=== PATIENT | male | born 1940 | race Caucasian/White ===

== ENCOUNTER 2020-05-04 10:02 | Outpatient (REF) | payer OTHER, SELFPAY | END 2020-05-04 10:03 | disposition home or self-care (01) | LOC: HO.LAB 10:02 | PROVIDERS: PCP Pediatrics; Visit Provider Internal Medicine | DX: Z20.828 Contact with and (suspected) exposure to other viral communicable diseases (principal) | CPT/HCPCS: 87635 ==

== ENCOUNTER 2022-07-04 12:35 | Outpatient (REF) | payer OTHER, SELFPAY ==
[2022-07-04 14:55] LABS: Anion Gap 12 (12-20); Blood Urea Nitrogen 15 mg/dL (9-16); Calcium 9.1 mg/dL (8.4-10.2); Carbon Dioxide 26 mmol/L (22-29); Chloride 104 mmol/L (96-108); Estimated Glomerular Filt Rate > 60; Glucose Random 67 mg/dL (60-115); Potassium 4.7 mmol/L (3.3-5.1); Sodium 137 mmol/L (135-145); Thyroid Stimulating Hormone 2.87 uIU/mL (0.32-4.0)
[2022-07-04 15:12] LABS: Folate 7.2 ng/mL (> or = 4.0); Vitamin B12 396 pg/mL (200-900)
== END 2022-07-04 12:36 | disposition home or self-care (01) ==
LOC: HO.LAB 12:35
PROVIDERS: PCP Pediatrics; Visit Provider Psychiatry & Neurology Neurology
DX: G31.84 Mild cognitive impairment of uncertain or unknown etiology (principal)
CPT/HCPCS: 36415; 80048; 82607; 82746; 84443

== ENCOUNTER 2022-07-26 10:39 | Outpatient (REF) | payer OTHER, SELFPAY ==
--- NOTE | ~2022-07-26 | CT_ITS ---
CT HEAD WITHOUT IV CONTRAST INDICATION: Mild cognitive impairment. COMPARISON: Head CT 12/12/2016. TECHNIQUE: Multidetector CT acquisitions of the head was obtained without IV contrast. This CT examination was performed using dose optimization techniques as appropriate, variously including the following: *Automated exposure control *Adjustment of mA and/or kV according to patient size (this includes techniques or standardized protocols for targeted exams where dose is matched to indication/reason for exam; i.e. extremities or head) *Use of iterative reconstruction technique FINDINGS: Atherosclerotic calcification throughout the intracranial arterial vasculature. There is global cerebral volume loss and there is mild to moderate chronic microangiopathy. There is no intracranial hemorrhage, hydrocephalus, extra-axial surface collection, midline shift, or other herniation pattern. Vogel to white matter differentiation is diffusely maintained without evidence of an evolved acute territorial infarct. The basilar cisterns are preserved. No significant soft tissue abnormality. No acute osseous abnormality. The paranasal sinuses and the mastoid air cells are well aerated. CT/CT head/brain wo IV con IMPRESSION: No acute intracranial findings. There is global cerebral volume loss and there is mild to moderate chronic microangiopathy. Atherosclerotic calcification throughout the intracranial arterial vasculature.
== END 2022-07-26 10:40 | disposition home or self-care (01) ==
LOC: HO.CT 10:39
PROVIDERS: PCP Pediatrics; Visit Provider Psychiatry & Neurology Neurology
DX: G31.84 Mild cognitive impairment of uncertain or unknown etiology (principal)
CPT/HCPCS: 70450

== ENCOUNTER 2022-11-23 11:13 | Observation (INO) | payer OTHER, SELFPAY ==
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
[2022-11-23 11:17] VITALS: BP 135/75; PULSE 60
[2022-11-23 11:20] VITALS: BP 139/63; PULSE 61; RESP 16; O2SAT 97; BMI 25.5
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
[2022-11-23 12:05] LABS: Glucose, Whole Blood 113 mg/dL (60-115)
[2022-11-23] MEDS: Acetaminophen 325 MG TABLET 650 MG PO (12:10)
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
[2022-11-23 13:13] LABS: Glucose, Whole Blood 49 mg/dL (60-115)
--- NOTE | 2022-11-23 14:00 | PC.NURSE ---
pt repeat POC 49mg/dl pt given orange juice and russell crackers
--- NOTE | 2022-11-23 14:30 | ECG_ITS ---
Test Reason : cp Blood Pressure : / mmHG Vent. Rate : 055 BPM Atrial Rate : 055 BPM P-R Int : 160 ms QRS Dur : 080 ms QT Int : 428 ms P-R-T Axes : 034 -21 009 degrees QTc Int : 409 ms Sinus bradycardia Otherwise normal ECG When compared with ECG of 13-DEC-2016 07:33, No significant change was found Referred By: Chang Buchanan Electronically Signed By:DONAL DURHAM
[2022-11-23 15:03] LABS: Glucose, Whole Blood 61 mg/dL (60-115)
[2022-11-23 15:35] LABS: PLT CLUMP 1; Red Cell Distribution Width 12.5 % (11.0-16.0); SCAN SMEAR FLAG 1
[2022-11-23 15:37] LABS: Basophils Percent Auto 0.3 % (0-2); Eosinophils Percent Auto 0.4 % (0-4); Hemoglobin 14.1 g/dl (14.0-18.0); Imm Gran Abs Auto 0.04 X10*3/uL (0.00-0.03); Imm Gran Pct Auto 0.4 % (0.0-0.4); Lymphocytes Absolute Auto 1.2 X10*3/uL (1.2-4.9); Lymphocytes Percent Auto 13.3 % (20-40); MANUAL DIFF FLAG SCAN; Mean Corpuscular HGB Conc 34.4 g/dl (31.0-36.0); Mean Corpuscular Hemoglobin 31.3 pg (27.0-33.0); Mean Corpuscular Volume 90.9 fL (80.0-98.0); Mean Platelet Volume 10.8 fL (9.4-12.4); Monocytes Absolute Auto 0.6 X10*3/uL (0.1-1.2); Monocytes Percent Auto 6.2 % (2-11); Neutrophils Absolute Auto 7.1 x10*3/uL (2.0-8.3); Neutrophils Percent Auto 79.4 % (45-73); Red Blood Count 4.51 X10*6/uL (4.60-5.80)
--- NOTE | 2022-11-23 15:42 | PHA.MEDREC ---
Pharmacy Consult ? Medication Reconciliation Pharmacy has completed the medication reconciliation. spoke with pt and family member. Pt no longer takes b12 because it greatly affected his blood sugars. he said he also doesnt take novolog, only lantus 55 units bid. In regards to the carvedilol, at first the patient said yes to bid but then after discussing with the family member, they said he only takes carvedilol once a day at night.
[2022-11-23 15:53] LABS: Alanine Aminotransferase 27 U/L (0-40); Alkaline Phosphatase 73 U/L (39-117); Anion Gap 11 (12-20); Aspartate Amino Transferase 52 U/L (5-37); Bilirubin Total 1.3 mg/dL (0.0-1.0); Blood Urea Nitrogen 10 mg/dL (9-16); Calcium 9.2 mg/dL (8.4-10.2); Carbon Dioxide 26 mmol/L (22-29); Chloride 109 mmol/L (96-108); Creatinine Clr Calc Pharmacy 70.9; Estimated Glomerular Filt Rate > 60; Glucose Random 76 mg/dL (60-115); Potassium 4.3 mmol/L (3.3-5.1); Sodium 142 mmol/L (135-145); Total Protein 6.8 g/dL (6.5-8.0)
[2022-11-23 16:01] LABS: Platelet Count 86 X10*3/uL (160-400); SLIDE REVIEW VERIFIED
[2022-11-23 16:33] LABS: Glucose, Whole Blood 66 mg/dL (60-115)
--- NOTE | 2022-11-23 16:34 | PC.NURSE ---
pt POC currently 66 pt has consumed orange juice and crackers 20G IV placed in right AC labs processing. call monteiro within reach, dtr at [email or web address]
[2022-11-23 17:44] LABS: Glucose, Whole Blood 112 mg/dL (60-115)
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
--- NOTE | 2022-11-23 18:17 | PC.NURSE ---
ATTEMPTED TO CALL [facility] FOR REPORT, NO ANSWER.
[2022-11-23 18:53] VITALS: BP 150/61; PULSE 63; O2SAT 97
[2022-11-23] MEDS: Lidocaine 4 % Patch ADH..PATCH 1 PATCH TRANSDERMA (18:54)
--- NOTE | 2022-11-23 18:58 | PC.NURSE ---
report given to [facility]
[2022-11-23 19:34] VITALS: BP 168/75; PULSE 61; RESP 20; TEMP 37.2; O2SAT 97
[2022-11-23 19:55] LABS: Glucose, Whole Blood 71 mg/dL (60-115)
[2022-11-23] MEDS: carvediloL 12.5 MG TABLET PO (20:54)
[2022-11-23] MEDS: Tamsulosin HCL 0.4 MG CAPSULE PO (20:54)
[2022-11-23] MEDS: 0.9 % Sodium Chloride Flush 3 ML SYRINGE IVFLUSH (20:55)
[2022-11-23 22:36] LABS: Glucose, Whole Blood 73 mg/dL (60-115)
[2022-11-23 23:20] VITALS: BP 142/64; PULSE 64; RESP 18; TEMP 36.7; O2SAT 96
[2022-11-24] MEDS: Acetaminophen 325 MG TABLET 650 MG PO (03:03)
[2022-11-24 03:13] VITALS: BP 112/58; PULSE 60; RESP 18; TEMP 37.1; O2SAT 96
[2022-11-24 07:29] LABS: Glucose, Whole Blood 81 mg/dL (60-115)
[2022-11-24 07:50] VITALS: BP 121/56; PULSE 57; RESP 20; TEMP 37.2; O2SAT 96
[2022-11-24] MEDS: Multivitamin TABLET 1 TAB PO (08:41)
[2022-11-24] MEDS: Aspirin Enteric Coated 81 MG TABLET.DR PO (08:41)
[2022-11-24] MEDS: Atorvastatin Calcium 80 MG TABLET PO (08:41)
[2022-11-24] MEDS: lisinopriL 10 MG TABLET PO (08:41)
[2022-11-24] MEDS: 0.9 % Sodium Chloride Flush 3 ML SYRINGE IVFLUSH (08:41)
[2022-11-24] MEDS: Lidocaine 4 % Patch ADH..PATCH 1 PATCH TRANSDERMA (08:42)
[2022-11-24] MEDS: Fluticasone Propionate Nasal 16 GM SPRAY 1 SPRAY NOSTRIL-B (08:44)
[2022-11-24] MEDS: Loratadine 10 MG TABLET PO (08:44)
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
--- NOTE | 2022-11-24 09:05 | MHC.CM.PN ---
11/24/22 08:57 - Case Mgmt Progress [id number] : 07/14/1968 Patient Age: 54 CM met with Patient at bedside with the assist of a Digital Operations Analyst and addressed [facility] with him (original was given to Patient and a copy has been placed on the chart). Patient lives alone in an apartment and he uses a cane to assist with mobility. Home self care is the goal and CM has initiated and will follow for dc planning. HCP/is on file(Daughter is HCP). Patient is Kulwinder dutton'd and the PCP is Dr. Beatriz Ernst. Initialized on 11/24/22 08:57 - END OF NOTE
--- NOTE | 2022-11-24 10:28 | MHC.CM.PN ---
Per ROUNDS discussion, Patient will be medically cleared for dc to home today. JAMESON met with Patient and his Daughter/HCP at bedside. Patient and Daughter are interested in a TRIM MACHINE OPERATOR. JAMESON spoke with [facility] JAMESON/Cayla @ [phone] who explained that she will contact the Rn Invasive/Radha and ask her to call the Daughter to work toward getting Patient a TRIM MACHINE OPERATOR. Cayla also approved [facility] for an RN and that referral has been made and [facility] is aware of today's dc. JAMESON relayed this information to the MD. Per Daughter's request, JAMESON has also requested that the Dietitian meet with them prior to dc.
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
--- NOTE | 2022-11-24 10:45 | W.MHC.F2F ---
Service Date Service Date: 11/24/22 Encounter Date of encounter: 11/24/22 Reasons for Services Signs and symptoms assessed: weakness, wrist pain Reason for assisted: diabetic teaching, medication management and medication treatment Homebound: Leaving the home is medically contraindicated at this time without the asist of a device and/or another person due th the listed conditions above and below. Reason homebound: unsteady gait / fall risk and unable to drive Certification: Based on the above findings, I certify that this patient is confined to the home and needs intermittent assisted care, physical therapy and/or speech therapy, or continues to need occupational therapy. The patient is under my care, and I have initiated the establishment of the plan of care. The patient will be followed by a physician who will periodically review the plan of care. Time Spent With Patient Time: Total time managing care of this patient today ____ minutes.
--- NOTE | 2022-11-24 10:46 | MHC.CM.PN ---
[facility] is unable to accept Patient. CM spoke with [facility] CM/Cayla again and additional [facility] referrals have been made. CM will follow.
[2022-11-24 11:06] LABS: Glucose, Whole Blood 128 mg/dL (60-115)
--- NOTE | 2022-11-24 11:12 | MHC.CM.PN ---
[facility] has accepted Patient and they are aware of today's dc.
--- NOTE | 2022-11-24 11:22 | MHC.CLN ---
RE: CONSULT SPOKE WITH PT'S DAUGHTER REGARDING DIABETIC DIET. DAUGHTER REPORTED PT NONCOMPLIANT WITH DM DIET AT HOME. REVIEWED FOODS HIGH IN CARBS AND RECOMMENDING SLOWLY SUBSTITUTING HIGH CHO, HIGH SUGAR FOODS WITH LOWER CARBS, HIGH FIBER OPTIONS. GAVE HANDOUTS IN BOTH LITHUANIAN AND CROATIAN. RECOMMEND REFERRAL TO OUT PT RD FOR FUTURE FOLLOW UP AND DIET RE-ENFORCEMENT SEE ALSO TEACHING RECORD
== END 2022-11-24 12:04 | disposition home health service (06) ==
LOC: HO.ED 17:02 → HO.EDOVER 17:52 → HO.IMC 17:55
PROVIDERS: Registered Nurse Emergency; Admitting Provider Physician Assistant; Emergency Provider Emergency Medicine Emergency Medical Services; PCP Pediatrics; Visit Provider Internal Medicine
DX: R42 Dizziness and giddiness (principal); E11.649 Type 2 diabetes mellitus with hypoglycemia without coma; T38.3X1A Poisoning by insulin and oral hypoglycemic [antidiabetic] drugs, accidental (unintentional), initial encounter; S52.592A Other fractures of lower end of left radius, initial encounter for closed fracture; V43.52XA Car driver injured in collision with other type car in traffic accident, initial encounter; W22.11XA Striking against or struck by driver side automobile airbag, initial encounter; Y93.9 Activity, unspecified; Y92.9 Unspecified place or not applicable; R07.9 Chest pain, unspecified; M25.561 Pain in right knee; I10 Essential (primary) hypertension; E78.5 Hyperlipidemia, unspecified; R41.3 Other amnesia; N40.0 Benign prostatic hyperplasia without lower urinary tract symptoms; Z79.4 Long term (current) use of insulin
CPT/HCPCS: 36415; 70450; 71046; 72125; 73100; 73120; 73562; 80053; 82947; 85025; 93005; 99222; 99285

== ENCOUNTER 2022-11-28 19:11 | Emergency (ER) | payer OTHER, SELFPAY ==
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
[2022-11-28 19:14] VITALS: BP 153/68; BP 162/82; PULSE 52; PULSE 66; RESP 17; TEMP 36.6; O2SAT 96; O2SAT 97; BMI 23.1
[2022-11-28 20:09] VITALS: BP 140/88; PULSE 56; RESP 15; O2SAT 97
[2022-11-28 21:50] VITALS: BP 136/90; PULSE 60; RESP 15; O2SAT 99
[2022-11-28] MEDS: iohexoL 350 MG/ML 100 ML INFUS..BTL IV (22:17)
[2022-11-28 23:28] VITALS: BP 151/56; PULSE 57; RESP 16; TEMP 36.7; O2SAT 98
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
--- NOTE | 2022-11-28 23:34 | MHC.EDTECH ---
THIS PCT ASSUMED CARE OF PATIENT AT 2300 ,PATIENT VITALS SIGN TAKEN ,EXTRA BLANKETS REMOVE FROM UNDER PATIENT ,PATIENT RESTING QUIETLY IN BED ,WARM BLANKET GIVEN .
[2022-11-28] MEDS: traMADoL HCL 50 MG TABLET PO (23:39)
== END 2022-11-29 00:02 | disposition home or self-care (01) ==
PROVIDERS: Emergency Provider Emergency Medicine
DX: S40.012A Contusion of left shoulder, initial encounter (principal); S49.92XA Unspecified injury of left shoulder and upper arm, initial encounter; M79.10 Myalgia, unspecified site; R10.2 Pelvic and perineal pain; M54.6 Pain in thoracic spine; V89.2XXA Person injured in unspecified motor-vehicle accident, traffic, initial encounter; Y93.9 Activity, unspecified; Y92.410 Unspecified street and highway as the place of occurrence of the external cause; Y99.9 Unspecified external cause status; Z79.899 Other long term (current) drug therapy
CPT/HCPCS: 71260; 74177; 99284; Q9967

== ENCOUNTER 2022-12-22 09:37 | Outpatient (REF) | payer OTHER, SELFPAY ==
--- NOTE | ~2022-12-22 | XR_ITS ---
EXAMINATION: XR WRIST, LEFT CLINICAL INFORMATION: Pain COMPARISON: Wrist radiographs 11/23/2022 TECHNIQUE: PA, lateral, and oblique views of the left wrist. FINDINGS: Atherosclerotic vascular calcification. Healing fracture at the distal radial metaphysis with increasing sclerosis of the fracture margins, in unchanged alignment. Joint spaces are maintained. Decreased soft tissue swelling. XR/XR wrist LT min 3V IMPRESSION: Healing fracture at the distal radial metaphysis with increasing sclerosis of the fracture margins, in unchanged alignment.
== END 2022-12-22 09:38 | disposition home or self-care (01) ==
LOC: HO.HOSX 09:37
PROVIDERS: Visit Provider Physician Assistant
DX: S52.502D Unspecified fracture of the lower end of left radius, subsequent encounter for closed fracture with routine healing (principal); X58.XXXD Exposure to other specified factors, subsequent encounter
CPT/HCPCS: 73110

== ENCOUNTER 2023-01-30 11:45 | Outpatient (REF) | payer OTHER, SELFPAY | END 2023-01-30 11:46 | disposition home or self-care (01) | LOC: HO.HOSX 11:45 | PROVIDERS: Visit Provider Physician Assistant | DX: Z13.89 Encounter for screening for other disorder (principal) ==

== ENCOUNTER 2023-03-14 07:26 | Outpatient (REF) | payer OTHER, SELFPAY ==
--- NOTE | ~2023-03-14 | XR_ITS ---
EXAMINATION: XR WRIST, LEFT CLINICAL INFORMATION: Pain COMPARISON: Previous x-ray most recent December TECHNIQUE: PA, lateral, and oblique views of the left wrist. FINDINGS: The bones are osteopenic. There is continued healing of the transverse nondisplaced fracture of the distal radius with more obscured fracture line. Mild joint space narrowing at the MCP joints. Carpal bones are normal. Soft tissue arterial calcification. XR/XR wrist LT min 3V IMPRESSION: Healing distal radius fracture
== END 2023-03-14 07:27 | disposition home or self-care (01) ==
LOC: HO.HOSX 07:26
PROVIDERS: Visit Provider Physician Assistant
DX: S52.502A Unspecified fracture of the lower end of left radius, initial encounter for closed fracture (principal); M18.12 Unilateral primary osteoarthritis of first carpometacarpal joint, left hand
CPT/HCPCS: 73110

== ENCOUNTER 2023-03-14 12:40 | Outpatient (AMB) | payer OTHER, SELFPAY ==
[2023-03-14 12:54] VITALS: BMI 23.0
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
== END 2023-03-14 13:18 | disposition home or self-care (01) ==
PROVIDERS: PCP Pediatrics; Visit Provider Physician Assistant
DX: S52.502D Unspecified fracture of the lower end of left radius, subsequent encounter for closed fracture with routine healing (principal); M18.12 Unilateral primary osteoarthritis of first carpometacarpal joint, left hand
CPT/HCPCS: 99213

== ENCOUNTER 2023-08-15 11:37 | Outpatient (REF) | payer OTHER, SELFPAY ==
[2023-08-15 14:58] LABS: MANUAL DIFF FLAG NO
[2023-08-15 15:04] LABS: Basophils Percent Auto 0.6 % (0-2); Eosinophils Percent Auto 1.1 % (0-4); Hematocrit 39.3 % (42.0-52.0); Hemoglobin 13.2 g/dl (14.0-18.0); Imm Gran Abs Auto 0.01 X10*3/uL (0.00-0.03); Imm Gran Pct Auto 0.3 % (0.0-0.4); Lymphocytes Absolute Auto 0.9 X10*3/uL (1.2-4.9); Lymphocytes Percent Auto 26.2 % (20-40); Mean Corpuscular HGB Conc 33.6 g/dl (31.0-36.0); Mean Corpuscular Hemoglobin 31.1 pg (27.0-33.0); Mean Corpuscular Volume 92.7 fL (80.0-98.0); Mean Platelet Volume 11.3 fL (9.4-12.4); Monocytes Absolute Auto 0.2 X10*3/uL (0.1-1.2); Monocytes Percent Auto 6.7 % (2-11); Neutrophils Absolute Auto 2.3 x10*3/uL (2.0-8.3); Neutrophils Percent Auto 65.1 % (45-73); Red Blood Count 4.24 X10*6/uL (4.60-5.80); Red Cell Distribution Width 12.9 % (11.0-16.0); White Blood Count 3.6 X10*3/uL (4.8-10.8)
[2023-08-15 15:24] LABS: Platelet Count 71 X10*3/uL (160-400)
[2023-08-15 15:34] LABS: Alanine Aminotransferase 19 U/L (0-40); Albumin Level 3.8 g/dL (3.5-5.0); Alkaline Phosphatase 71 U/L (39-117); Anion Gap 13 (12-20); Aspartate Amino Transferase 32 U/L (5-37); Bilirubin Direct 0.4 mg/dL (0.0-0.5); Blood Urea Nitrogen 14 mg/dL (9-16); Calcium 9.2 mg/dL (8.4-10.2); Carbon Dioxide 25 mmol/L (22-29); Chloride 104 mmol/L (96-108); Estimated Glomerular Filt Rate > 60; Glucose Random 203 mg/dL (60-115); Potassium 3.9 mmol/L (3.3-5.1); Sodium 138 mmol/L (135-145); Total Protein 6.6 g/dL (6.5-8.0)
[2023-08-15 15:42] LABS: TSH reflex Free T4 1.99 uIU/mL (0.32-4.0)
[2023-08-15 15:45] LABS: Folate 11.3 ng/mL (> or = 4.0); Vitamin B12 614 pg/mL (200-900)
[2023-08-15 15:50] LABS: Creatinine Urine 48.97 mg/dL; Microalbumin Urine < 5.0 mg/L
[2023-08-15 16:51] LABS: Appearance Urine Clear; Color Urine Yellow; Glucose Urine UA >=1000 mg/dL (Negative)
[2023-08-15 16:52] LABS: Leukocyte Esterase Urine Negative (Negative); Nitrite Urine Negative (Negative); Specific Gravity - Urine <= 1.005 (1.005-1.025); UMIC TRIGGER UACC YES; Urine Blood Trace (Negative); Urine Ketones Negative (Negative); Urine Protein Negative (Neg-Trace)
[2023-08-15 16:56] LABS: Bacteria Urine None Seen (None Seen); Hyaline Casts Urine 0-2 /LPF (0-2); RBC Urine 0-2 /HPF (0-2); Squamous Epithelial Cell Urine 0-2 /HPF (0-2); WBC Urine 0-5 /HPF (0-5)
== END 2023-08-15 11:38 | disposition home or self-care (01) ==
LOC: HO.CHCLDS 11:37
PROVIDERS: Visit Provider Pediatrics
DX: C83.30 Diffuse large B-cell lymphoma, unspecified site (principal); E11.9 Type 2 diabetes mellitus without complications; R41.3 Other amnesia; H90.6 Mixed conductive and sensorineural hearing loss, bilateral
CPT/HCPCS: 36415; 80048; 80076; 81001; 81003; 82043; 82570; 82607; 82746; 84134; 84443; 85025

== ENCOUNTER 2023-10-04 12:50 | Outpatient (REF) | payer OTHER, SELFPAY ==
--- NOTE | ~2023-10-04 | CT_ITS ---
EXAMINATION: CT HEAD WITHOUT CONTRAST CLINICAL INFORMATION: 83-year-old with memory impairment. Evaluate for possible remote CVA. COMPARISON: 07/26/2022 CT brain. TECHNIQUE: Contiguous axial imaging was performed from the skull base to vertex without intravenous administration of contrast. This CT examination was performed using dose optimization techniques as appropriate, variously including the following: *Automated exposure control *Adjustment of mA and/or kV according to patient size (this includes techniques or standardized protocols for targeted exams where dose is matched to indication/reason for exam; i.e. extremities or head) *Use of iterative reconstruction technique DLP: 711 mGy-cm FINDINGS: Brain Volume: Redemonstrated is [id number] generalized diffuse brain parenchymal volume loss similar in appearance to the previous study. Structural: No malformations. Brain and Meninges: Faint patchy zones of hypodensity are seen in the white matter of both cerebral hemispheres similar in appearance to the previous exam likely reflecting mild chronic ischemic microangiopathy in a patient of this age. Vogel-white matter interface is intact. There is no acute territorial infarct, hemorrhage, extra-axial fluid collection, space-occupying process or mass effect. Ganglionic structures appear grossly unchanged. There may be a tiny age-indeterminate lacunar infarct in the left thalamus on the current study, but this is difficult to ascertain with a high degree of certainty. Otherwise, midline structures appear grossly unremarkable. Bilateral carotid siphon mural calcifications and mild degrees of atheromatous calcified plaque at both vertebral arteries unchanged. Ventricles and Subarachnoid Spaces: The ventricular system and subarachnoid spaces are approximately proportional to the degree of parenchymal volume loss, without hydrocephalus. Orbital Structures: Bilateral lens replacements are noted. Otherwise, grossly unremarkable within the limitations of the study. Osseous Structures, Sinuses/Mastoids, Extracranial Soft Tissues: Bony structures are intact. The visualized airspaces are unopacified. The visualized extra cranial soft tissue structures are unremarkable. CT/CT head/brain wo IV con IMPRESSION: 1. No acute intracranial process. No evidence for acute territorial infarct, hemorrhage, extra-axial fluid collection, space-occupying process, mass effect or hydrocephalus. 2. Mild chronic ischemic microangiopathy in the white matter of both cerebral hemispheres similar in appearance to the previous study. 3. Possible tiny age-indeterminate lacunar infarct in the left thalamus on the current study, but this is difficult to ascertain with a high degree of certainty. 4. Generalized diffuse nonspecific brain parenchymal volume loss similar to the previous study.
== END 2023-10-04 12:51 | disposition home or self-care (01) ==
LOC: HO.CT 12:50
PROVIDERS: PCP Pediatrics; Visit Provider Pediatrics
DX: R41.3 Other amnesia (principal)
CPT/HCPCS: 70450

== ENCOUNTER 2024-03-27 10:22 | Outpatient (REF) | payer OTHER, SELFPAY ==
[2024-03-27 13:47] LABS: MANUAL DIFF FLAG NO
[2024-03-27 14:04] LABS: Basophils Percent Auto 0.3 % (0-2); Eosinophils Percent Auto 0.3 % (0-4); Hematocrit 41.1 % (42.0-52.0); Hemoglobin 14.1 g/dl (14.0-18.0); Imm Gran Abs Auto 0.01 X10*3/uL (0.00-0.03); Imm Gran Pct Auto 0.3 % (0.0-0.4); Lymphocytes Absolute Auto 0.6 X10*3/uL (1.2-4.9); Lymphocytes Percent Auto 17.6 % (20-40); Mean Corpuscular HGB Conc 34.3 g/dl (31.0-36.0); Mean Corpuscular Hemoglobin 31.6 pg (27.0-33.0); Mean Corpuscular Volume 92.2 fL (80.0-98.0); Mean Platelet Volume 12.1 fL (9.4-12.4); Monocytes Absolute Auto 0.2 X10*3/uL (0.1-1.2); Monocytes Percent Auto 6.4 % (2-11); Neutrophils Absolute Auto 2.7 x10*3/uL (2.0-8.3); Neutrophils Percent Auto 75.1 % (45-73); Red Blood Count 4.46 X10*6/uL (4.60-5.80); White Blood Count 3.6 X10*3/uL (4.8-10.8)
[2024-03-27 14:05] LABS: Platelet Count 85 X10*3/uL (160-400)
[2024-03-27 14:24] LABS: Estimated Average Glucose 192 mg/dL; Hemoglobin A1c % 8.3 % (<6.0)
[2024-03-27 14:30] LABS: Alanine Aminotransferase 25 U/L (0-40); Albumin Level 3.9 g/dL (3.5-5.0); Alkaline Phosphatase 104 U/L (39-117); Anion Gap 12 (12-20); Aspartate Amino Transferase 31 U/L (5-37); Bilirubin Direct 0.3 mg/dL (0.0-0.5); Bilirubin Total 0.8 mg/dL (0.0-1.0); Blood Urea Nitrogen 17 mg/dL (9-16); Calcium 9.5 mg/dL (8.4-10.2); Carbon Dioxide 26 mmol/L (22-29); Chloride 103 mmol/L (96-108); Estimated Glomerular Filt Rate > 60; Glucose Random 314 mg/dL (60-115); Potassium 4.1 mmol/L (3.3-5.1); Sodium 137 mmol/L (135-145); Total Protein 6.7 g/dL (6.5-8.0)
[2024-03-27 14:39] LABS: TSH reflex Free T4 1.64 uIU/mL (0.32-4.0)
[2024-03-27 14:55] LABS: Folate 14.9 ng/mL (> or = 4.0); Vitamin B12 543 pg/mL (200-900)
== END 2024-03-27 10:23 | disposition home or self-care (01) ==
LOC: HO.CHCLDS 10:22
PROVIDERS: Visit Provider Pediatrics
DX: I10 Essential (primary) hypertension (principal); E11.69 Type 2 diabetes mellitus with other specified complication; Z79.4 Long term (current) use of insulin
CPT/HCPCS: 36415; 80048; 80076; 82607; 82746; 83036; 84134; 84443; 85025

== ENCOUNTER 2024-07-25 15:49 | Outpatient (REF) | payer OTHER, SELFPAY ==
--- NOTE | ~2024-07-25 | CT_ITS ---
EXAMINATION: CT ABDOMEN WITHOUT AND WITH CONTRAST CLINICAL INFORMATION: Liver mass. COMPARISON: CT dated November 28, 2022. TECHNIQUE: Contiguous axial thin section helical images of the abdomen were performed before and after the administration of 85 mL of Omnipaque 350 intravenous contrast. No reported immediate complication. The data set was reformatted in the coronal and sagittal planes and reviewed on an independent workstation. This CT examination was performed using dose optimization techniques as appropriate, variously including the following: *Automated exposure control *Adjustment of mA and/or kV according to patient size (this includes techniques or standardized protocols for targeted exams where dose is matched to indication/reason for exam; i.e. extremities or head) *Use of iterative reconstruction technique. DLP: 798 mGy centimeter. FINDINGS: LUNG BASES: No acute airspace disease or gross pulmonary nodules in the included lungs. Subcentimeter subpleural based groundglass nodules right lung base. LIVER, GALLBLADDER, AND BILIARY TREE: Liver measures 11 cm in maximum length. Nodular surface. Enlarged caudate lobe. There is an irregularly-shaped, 9 cm, arterial and portal venous heterogeneously enhancing mass centered in the entire left hepatic lobe. There is an irregularly-shaped, 4 cm, partially calcified, arterial and portal venous heterogeneously enhancing mass centered in the right hepatic lobe. There are segmental narrowing of the left portal vein with diminished newly absent IV contrast enhancement. The main portal vein and main right portal vein are patent. The hepatic veins and intrahepatic portion of the IVC are patent. There is a focal calcification in the gallbladder without distention. No gallbladder wall thickening. There is a edema pattern of the gallbladder wall. No intrahepatic or extrahepatic biliary ductal dilatation. PANCREAS: Volume loss. No focal mass. No peripancreatic fluid collection. No main pancreatic ductal dilatation. Decreased enhancement of the head and uncinate process. SPLEEN: 13 cm. No focal mass. ADRENAL GLANDS AND KIDNEYS: No nodular lesions in the adrenal glands. There are multifocal, different sizes, round and ovoid shaped well-defined less than 2 cm fluid density lesions throughout the renal parenchyma more numerous on the left kidney. The renal parenchyma demonstrates normal enhancement pattern. No hydronephrosis in either kidney. BOWEL LOOPS: Abundant stool within the large intestine. No intestinal obstruction pattern. No gross ascites. No pneumoperitoneum. Edema pattern in the omentum and mesentery. LYMPH NODES: No gross lymphadenopathy. VASCULAR: Mixed plaques throughout the abdominal aorta wall and the iliac arteries without aneurysm or dissection. Calcified plaques at the origin of the celiac trunk and main renal arteries. Calcified plaques in the aortic valve. Questionable prominent vessels at the paraesophageal gastroesophageal junction. BONES: Multilevel thoracolumbar spondylosis. No acute fracture or listhesis. Multilevel Schmorl nodes, more conspicuous at L3. CT/CT abdomen wo/w IV con IMPRESSION: Consider to hepatocellular carcinoma masses in the left and right hepatic lobe in a patient with cirrhosis. Cholelithiasis. Bilateral renal cysts. Atherosclerosis disease. Calcified plaques, aortic valve. No ascites. Fleischner guidelines were followed. Electronically signed by: Hayden Morales MD 07/26/2024 08:11 AM MICHELET
[2024-07-25] MEDS: iohexoL 350 MG/ML 100 ML INFUS..BTL 85 ML IV (16:49)
[2024-07-26 14:15] LABS: Creatinine POC 0.8 mg/dL (0.5-1.4); GFR POC > 60
== END 2024-07-25 15:50 | disposition home or self-care (01) ==
LOC: HO.CT 15:49
PROVIDERS: PCP Pediatrics; Visit Provider Student in an Organized Health Care Education/Training Program
DX: C22.0 Liver cell carcinoma (principal)
CPT/HCPCS: 74170; 82565; Q9967

== ENCOUNTER → 2024-07-25 15:51 | Outpatient (BNV) | payer OTHER, SELFPAY | PROVIDERS: PCP Pediatrics; Visit Provider Radiology Diagnostic Radiology | DX: K80.00 Calculus of gallbladder with acute cholecystitis without obstruction (principal) | CPT/HCPCS: 74170 ==

== ENCOUNTER 2024-08-13 20:39 | Observation (INO) | payer OTHER, SELFPAY ==
--- NOTE | 2024-08-13 | ECG_ITS ---
Test Reason : BRADYCARDIA Blood Pressure : */* mmHG Vent. Rate : 66 BPM Atrial Rate : 66 BPM P-R Int : 154 ms QRS Dur : 70 ms QT Int : 410 ms P-R-T Axes : 14 -25 -18 degrees QTcB Int : 429 ms Sinus rhythm with frequent Premature ventricular complexes Nonspecific ST abnormality Abnormal ECG When compared with ECG of 23-Nov-2022 11:27, Premature ventricular complexes are now Present T wave amplitude has decreased in Lateral leads Referred By: Generic ED Physician Electronically Signed By: DONAL DURHAM
[2024-08-13 20:53] VITALS: BP 120/56; BP 128/68; PULSE 72; RESP 17; TEMP 35.6; O2SAT 96; O2SAT 98; BMI 18.1
[2024-08-13 20:58] VITALS: BP 110/53; BP 113/54; PULSE 67; PULSE 71
[2024-08-13 21:00] VITALS: BP 109/54; PULSE 76
[2024-08-13 21:10] LABS: Glucose, Whole Blood 257 mg/dL (60-115)
[2024-08-13 21:12] LABS: Eosinophils Absolute Auto 0.1 X10*3/uL (0.0-0.4); Monocytes Absolute Auto 0.4 X10*3/uL (0.1-1.2); PLT CLUMP 1; SCAN SMEAR FLAG 1
[2024-08-13 21:14] LABS: Basophils Percent Auto 0.2 % (0-2); Eosinophils Percent Auto 1.2 % (0-4); Hematocrit 36.5 % (42.0-52.0); Hemoglobin 12.4 g/dl (14.0-18.0); Imm Gran Abs Auto 0.01 X10*3/uL (0.00-0.03); Imm Gran Pct Auto 0.2 % (0.0-0.4); Lymphocytes Absolute Auto 0.9 X10*3/uL (1.2-4.9); Lymphocytes Percent Auto 21.6 % (20-40); Mean Corpuscular Hemoglobin 31.1 pg (27.0-33.0); Mean Corpuscular Volume 91.5 fL (80.0-98.0); Mean Platelet Volume 10.3 fL (9.4-12.4); Monocytes Percent Auto 9.2 % (2-11); Neutrophils Absolute Auto 2.9 x10*3/uL (2.0-8.3); Neutrophils Percent Auto 67.6 % (45-73); Red Blood Count 3.99 X10*6/uL (4.60-5.80); Red Cell Distribution Width 13.5 % (11.0-16.0)
[2024-08-13 21:22] LABS: Platelet Count 64 X10*3/uL (160-400); White Blood Count 4.3 X10*3/uL (4.8-10.8)
[2024-08-13 21:23] LABS: MANUAL DIFF FLAG NO
--- NOTE | 2024-08-13 21:23 | ED.GENADULT ---
HPI - General Adult General Chief complaint: General Medical Stated complaint: orthostatic hypotension, cheng per nurse Time Seen by Provider: 08/13/24 21:23 Source: patient Mode of arrival: ambulatory Limitations: no limitations History of Present Illness ED Provider: HPI narrative: Patient's history of diabetes ,hypertension, BPH, history of lymphoma noticed to be bradycardic by visiting nurse heart rate in the range of 40s with blood pressure stable in 120s but dropped to 88/48 on standing with heart rate dropped between 30s-50s which was measured from the pulse ox when EMS reached heart rate was in 70s with multifocal PVCs patient is asymptomatic no dizziness no syncope no chest pain no shortness a breath patient is on carvedilol patient with dementia denies any complaints [employer] also did not notice any change in behavior or dizziness Related Data Home Medications ?Medication ?Instructions ?Recorded ?Confirmed aspirin 81 mg tablet,delayed 81 mg PO DAILY 11/23/22 11/28/22 release lisinopril 10 mg tablet 30 mg PO QAM 11/23/22 11/28/22 loratadine 10 mg tablet 10 mg PO DAILY 11/23/22 11/28/22 multivitamin (One Daily 1 tab PO DAILY 11/23/22 11/28/22 Multivitamin tablet) Previous Rx's ?Medication ?Instructions ?Recorded tramadol 50 mg tablet 50 mg PO BID PRN pain #7 tabs 11/28/22 Allergies Allergy/AdvReac Type Severity Reaction Status Date / Time No Known Allergies Allergy Verified 08/13/24 20:59 Review of Systems Review of Systems: Yes all other systems are reviewed and are negative PMFSH Past Medical History Medical History BPH (benign prostatic hyperplasia) Type 2 diabetes mellitus HLD (hyperlipidemia) Memory impairment HTN (hypertension) Social History Social History Alcohol intake: never Patient Tobacco Use Status: Never used Tobacco Smoked in Last 30 Days: No Second Hand Smoke Exposure: No Use of substances other than those prescribed or required for medical reasons: No Advance Directives: No Advance Directives Information Provided: No Nutrition Risks: Diabetes new onset/Uncontrolled service: No Current occupational status: retired Physical Exam ED Vital Signs: Vital Signs - 24 hr 08/13/24 20:53 08/13/24 20:58 08/13/24 20:58 Temperature 96.0 F L Pulse Rate 72 67 71 Respiratory Rate 17 Blood Pressure 120/56 L 110/53 L 113/54 L Pulse Oximetry 98 Oxygen Delivery Method Room Air 08/13/24 21:00 Temperature Pulse Rate 76 Respiratory Rate Blood Pressure 109/54 L Pulse Oximetry Oxygen Delivery Method BMI result Body Mass Index 18.1 Appearance: Alert. Oriented 2. No acute distress. Eyes: PERRLA, No Nystagmus ENT: Pharynx normal. Oral Mucosa moist Neck: Normal inspection. Neck supple. CVS: Normal heart rate premature beats. Pulses normal. Respiratory: No respiratory distress. Equal air entry bilateral, no wheezing/rales/rhonchi Abdomen: Soft and nontender. Bowel sounds are present, no mass palpable, no CVA tenderness : Yeast infection of the glans Skin: Skin warm and dry. Normal skin color. Normal skin turgor. Extremities: No lower extremity edema. No calf tenderness Neuro: Oriented X 2. No motor deficit. No sensory deficit.No cerebellar signs , cranial nerves II-XII intact Medications Administered Generic Name Dose Route Start Last Admin Trade Name Freq PRN Reason Stop Dose Admin Sodium Chloride 1,000 mls @ 75 mls/hr 08/13/24 23:30 08/13/24 23:59 Ns IVCONT 75 mls/hr .[id number] LOAN Administration Sodium Chloride 3 ml 08/14/24 00:00 08/13/24 23:59 0.9 % Sodium Chloride Flush 3 Ml Syringe IVFLUSH 3 ml QSHIFT LOAN Administration Medical Decision Making Medical Decision Making [facility] Narrative: Patient with asymptomatic bradycardia leakage without any sinus pauses patient is on carvedilol check labs electrolyte and TSH and review Case discussed Dr. Wise community affairs manager advised to watch patient for overnight and evaluate in the a.m. at this time EKG without any significant bradycardia just as PVCs which were asymptomatic labs are stable Differential Diagnosis Differential Diagnoses: The differential diagnosis associated with the presentation includes Sick sinus syndrome/atrial flutter with variable block/PACs/PVCs Admission/Observation Consideration of admission/observation: Escalation of care including admission/observation considered Consult Healthcare Provider Management of the patient was discussed with: Hospitalist Lab Data [facility] Lab Attestation statement: I reviewed the patient's lab results. 08/13/24 21:06 08/13/24 21:06 Labs: Lab Results 08/13/24 08/13/24 08/13/24 Range/Units 21:05 21:06 21:28 WBC 4.3 L (4.8-10.8) X10*3/uL RBC 3.99 L (4.60-5.80) X10*6/uL Hgb 12.4 L (14.0-18.0) g/dl Hct 36.5 L (42.0-52.0) % MCV 91.5 (80.0-98.0) fL MCH 31.1 (27.0-33.0) pg MCHC 34.0 (31.0-36.0) g/dl RDW 13.5 (11.0-16.0) % Plt Count 64 L (160-400) X10*3/uL MPV 10.3 (9.4-12.4) fL Immature Gran % (Auto) 0.2 (0.0-0.4) % Neut % (Auto) 67.6 (45-73) % Lymph % (Auto) 21.6 (20-40) % [place] % (Auto) 9.2 (2-11) % Eos % (Auto) 1.2 (0-4) % Baso % (Auto) 0.2 (0-2) % Lymph # (Auto) 0.9 L (1.2-4.9) X10*3/uL [place] # (Auto) 0.4 (0.1-1.2) X10*3/uL Eos # (Auto) 0.1 (0.0-0.4) X10*3/uL Baso # (Auto) 0.0 (0.0-0.2) X10*3/uL Abs Immat Gran (auto) 0.01 (0.00-0.03) X10*3/uL Absolute Neuts (auto) 2.9 (2.0-8.3) x10*3/uL Absolute Nucleated RBC 0.000 (0.0-0.012) X10*3/uL Nucleated RBC % (auto) 0.0 (0.0-0.2) /100WBC Sodium 138 (135-145) mmol/L Potassium 4.1 (3.3-5.1) mmol/L Chloride 107 (96-108) mmol/L Carbon Dioxide 23 (22-29) mmol/L Anion Gap 12 (12-20) BUN 20 H (9-16) mg/dL Creatinine 0.64 (0.5-1.4) mg/dL Estim Creat Clear Calc 67.9 Estimated GFR > 60 POC Glucose 257 H (60-115) mg/dL Random Glucose 260 H (60-115) mg/dL Calcium 8.2 L D (8.4-10.2) mg/dL Magnesium 2.0 (1.6-2.6) mg/dL Total Bilirubin 0.5 (0.0-1.0) mg/dL AST 88 H (5-37) U/L ALT 63 H (0-40) U/L Alkaline Phosphatase 290 H (39-117) U/L Troponin I High Sens 3.6 (<3.5-35.0) ng/L Total Protein 6.2 L (6.5-8.0) g/dL Albumin 3.2 L (3.5-5.0) g/dL TSH 2.39 (0.32-4.0) uIU/mL Urine Color Yellow Urine Appearance Clear Urine pH 6.5 (5.0-9.0) Ur Specific [place] >= 1.030 H (1.005-1.025) Urine Protein Negative (Neg-Trace) mg/dL Urine Glucose (UA) >=1000 H (Negative) mg/dL Urine Ketones Negative (Negative) mg/dL Urine Blood Negative (Negative) Urine Nitrite Negative (Negative) Ur Leukocyte Esterase Negative (Negative) Urine RBC 0-2 (0-2) /HPF Urine WBC 0-5 (0-5) /HPF Ur Squamous Epith Cells 0-2 (0-2) /HPF Urine Bacteria None Seen (None Seen) Hyaline Casts 0-2 (0-2) /LPF Independent Interpretation I performed an independent interpretation of an: EKG Interpretation: Sinus rhythm with Ventricular rate 66 beats per minute no acute ST-T changes no acute ischemia multifocal PVCs Discharge Plan Discharge Clinical Impression: Asymptomatic bradycardia Patient Disposition: Admitted As Inpatient
[2024-08-13 21:32] LABS: Alanine Aminotransferase 63 U/L (0-40); Albumin Level 3.2 g/dL (3.5-5.0); Alkaline Phosphatase 290 U/L (39-117); Anion Gap 12 (12-20); Aspartate Amino Transferase 88 U/L (5-37); Bilirubin Total 0.5 mg/dL (0.0-1.0); Blood Urea Nitrogen 20 mg/dL (9-16); Calcium 8.2 mg/dL (8.4-10.2); Carbon Dioxide 23 mmol/L (22-29); Chloride 107 mmol/L (96-108); Creatinine Clr Calc Pharmacy 67.9; Estimated Glomerular Filt Rate > 60; Glucose Random 260 mg/dL (60-115); Potassium 4.1 mmol/L (3.3-5.1); Sodium 138 mmol/L (135-145); Total Protein 6.2 g/dL (6.5-8.0)
[2024-08-13 21:39] LABS: Appearance Urine Clear; Color Urine Yellow; Glucose Urine UA >=1000 mg/dL (Negative); Leukocyte Esterase Urine Negative (Negative); Nitrite Urine Negative (Negative); PH 6.5 (5.0-9.0); Specific Gravity - Urine >= 1.030 (1.005-1.025); UMIC TRIGGER UACC YES; Urine Blood Negative (Negative); Urine Ketones Negative (Negative); Urine Protein Negative (Neg-Trace)
[2024-08-13 21:39] LABS: Troponin-I High Sensitivity 3.6 ng/L (<3.5-35.0)
[2024-08-13 21:44] LABS: Bacteria Urine None Seen (None Seen); Hyaline Casts Urine 0-2 /LPF (0-2); RBC Urine 0-2 /HPF (0-2); Squamous Epithelial Cell Urine 0-2 /HPF (0-2); WBC Urine 0-5 /HPF (0-5)
--- NOTE | 2024-08-13 22:00 | ECG_ITS ---
Test Reason : REPEAT EKG Blood Pressure : */* mmHG Vent. Rate : 63 BPM Atrial Rate : 227 BPM P-R Int : * ms QRS Dur : 70 ms QT Int : 418 ms P-R-T Axes : 58 81 51 degrees QTcB Int : 427 ms Normal sinus rhythm with tremors vs Atrial flutter Nonspecific ST abnormality Abnormal ECG When compared with ECG of 13-Aug-2024 20:56, ?rhtyhm change Referred By: Matthew Munoz Electronically Signed By: DONAL DURHAM
--- NOTE | 2024-08-13 22:07 | ECG_ITS ---
Test Reason : REPEAT EKG Blood Pressure : */* mmHG Vent. Rate : 65 BPM Atrial Rate : 65 BPM P-R Int : 158 ms QRS Dur : 70 ms QT Int : 422 ms P-R-T Axes : 65 -7 0 degrees QTcB Int : 438 ms Normal sinus rhythm Normal ECG When compared with ECG of 13-Aug-2024 22:03, No significant changes seen Referred By: Matthew Munoz Electronically Signed By: DONAL DURHAM
[2024-08-13 22:15] LABS: Thyroid Stimulating Hormone 2.39 uIU/mL (0.32-4.0)
--- NOTE | 2024-08-13 22:47 | PC.NURSE ---
Patient is calm/cooperative. Reports urinary frequency at baseline. Urine was sent earlier and resulted. Dr. Griffin speaking with hospitalist at this time. Patient's daughter also at bedside.
[2024-08-13 23:22] VITALS: BP 110/51; PULSE 63; RESP 14; O2SAT 95
--- NOTE | 2024-08-13 23:25 | P.HPHOSP_ITS ---
History of Present Illness Date of Service: 08/13/24 Chief Complaint: cheng, hypotensive 83M PMH unspecified cirrhosis with HCC, unspecified dementia, dm, bph, lymphoma, sent in after visiting nurse noted bradycardia to 30s. EMS came and confirmed low heart rate per report, also noted to be orthostatic to 88 systolic on standing. patient asymptomatic. on coreg. in ED in NSR in 60s. orthostatics negative, sbp around 110. Review of Systems 2 Review of Systems: Yes all other systems are reviewed and are negative [facility] Medical History BPH (benign prostatic hyperplasia) Type 2 diabetes mellitus HLD (hyperlipidemia) Memory impairment HTN (hypertension) Social History Alcohol intake: never Patient Tobacco Use Status: Never used Tobacco Second Hand Smoke Exposure: No Advance Directives: No Advance Directives Information Provided: No service: No Current occupational status: retired Meds Allergies Allergy/AdvReac Type Severity Reaction Status Date / Time No Known Allergies Allergy Verified 08/13/24 20:59 Home Medications ?Medication ?Instructions ?Recorded ?Confirmed ?Last Taken ?Type aspirin 81 mg tablet,delayed 81 mg PO DAILY 11/23/22 11/28/22 11/27/22 History release lisinopril 10 mg tablet 30 mg PO QAM 11/23/22 11/28/22 11/27/22 History loratadine 10 mg tablet 10 mg PO DAILY 11/23/22 11/28/22 11/28/22 History multivitamin (One Daily 1 tab PO DAILY 11/23/22 11/28/22 11/27/22 History Multivitamin tablet) Physical Exam 2 Vital Signs and Narrative: Vital Signs: Last Vital Signs Temp 96.0 F L 08/13/24 20:53 Pulse 76 08/13/24 21:00 Resp 17 08/13/24 20:53 BP 109/54 L 08/13/24 21:00 Pulse Ox 98 08/13/24 20:53 O2 Del Method Room Air 08/13/24 20:53 BMI result Body Mass Index 18.1 General: AO X 2, no acute distress Resp: CTA bilateral, no accessory muscles used CVS: S1,S2,RRR GI: soft, non tender, non distended Neuro: motor grossly intact, alert Results Labs 08/13/24 21:06 08/13/24 21:06 Labs: Laboratory Results - last 24 hr 08/13/24 08/13/24 08/13/24 21:05 21:06 21:28 MCV 91.5 MCH 31.1 MCHC 34.0 RDW 13.5 Plt Count 64 L MPV 10.3 Immature Gran % (Auto) 0.2 Neut % (Auto) 67.6 Lymph % (Auto) 21.6 [place] % (Auto) 9.2 Eos % (Auto) 1.2 Baso % (Auto) 0.2 Lymph # (Auto) 0.9 L [place] # (Auto) 0.4 Eos # (Auto) 0.1 Baso # (Auto) 0.0 Abs Immat Gran (auto) 0.01 Absolute Neuts (auto) 2.9 Absolute Nucleated RBC 0.000 Nucleated RBC % (auto) 0.0 Anion Gap 12 Estim Creat Clear Calc 67.9 Estimated GFR > 60 POC Glucose 257 H Random Glucose 260 H Calcium 8.2 L D Magnesium 2.0 Total Bilirubin 0.5 AST 88 H ALT 63 H Alkaline Phosphatase 290 H Troponin I High Sens 3.6 Total Protein 6.2 L Albumin 3.2 L TSH 2.39 Urine Color Yellow Urine Appearance Clear Urine pH 6.5 Ur Specific [place] >= 1.030 H Urine Protein Negative Urine Glucose (UA) >=1000 H Urine Ketones Negative Urine Blood Negative Urine Nitrite Negative Ur Leukocyte Esterase Negative Urine RBC 0-2 Urine WBC 0-5 Ur Squamous Epith Cells 0-2 Urine Bacteria None Seen Hyaline Casts 0-2 Assessment and Plan (1) Type 2 diabetes mellitus: Status: Acute Plan 83M PMH unspecified cirrhosis with HCC, unspecified dementia, dm, bph, lymphoma, sent in after visiting nurse noted bradycardia asymptomatic bradycardia and orthostatic hypotension hold coreg monitor on tele cardio eval IVF, monitor orthos Unspecified cirrhosis with hepatocellular carcinoma and thrombocytopenia Hold aspirin Outpatient follow up Diabetes Continue Jardiance Monitor point of care BPH Flomax Unspecified dementia Stable DVT prophylaxis Lovenox Full Code Quality Stroke Does the patient have a stroke diagnosis?: No VTE Prior VTE?: No VTE Risk Level:: Medical - moderate - high VTE Device Contraindication: Treatment Not Indicated VTE Drug Contraindication: N/A - Med Ordered
[2024-08-13 23:27] VITALS: PULSE 66
[2024-08-13 23:50] VITALS: BP 108/49; PULSE 62; RESP 16; TEMP 36.4; O2SAT 95
[2024-08-13] MEDS: 0.9 % Sodium Chloride 1,000 ML 75 ML IVCONT (23:59)
[2024-08-13] MEDS: 0.9 % Sodium Chloride Flush 3 ML SYRINGE IVFLUSH (23:59)
[2024-08-14] VITALS (12 sets, daily range): BP systolic 107–126; BP diastolic 49–62; PULSE 55–71; RESP 13–15; TEMP 36.4–36.7; O2SAT 94–97
--- NOTE | 2024-08-14 00:17 | PC.NURSE ---
Patient moved from ED 5 to ED 7. Oriented to new room, call monteiro within reach. Cardiac monitoring continues. Patient denies any complaints at this time, no needs at this time. Care ongoing by this RN.
--- NOTE | 2024-08-14 02:49 | PC.NURSE ---
Patient accidentally removed 20g IV access from left lateral aspect of AC while trying to remove his hospital gown. New 20g IV access established to left medial AC without difficulty. NS connected and infusion was continued at 75 ml/hour. No additional needs at this time.
[2024-08-14 04:44] LABS: Mean Corpuscular Hemoglobin 30.8 pg (27.0-33.0); Mean Platelet Volume 10.5 fL (9.4-12.4); PLT CLUMP 1; Red Cell Distribution Width 13.5 % (11.0-16.0)
[2024-08-14 04:46] LABS: Hematocrit 35.4 % (42.0-52.0); Hemoglobin 11.8 g/dl (14.0-18.0); Mean Corpuscular HGB Conc 33.3 g/dl (31.0-36.0); Mean Corpuscular Volume 92.4 fL (80.0-98.0); Red Blood Count 3.83 X10*6/uL (4.60-5.80)
[2024-08-14 04:50] LABS: Platelet Count 62 X10*3/uL (160-400); White Blood Count 3.9 X10*3/uL (4.8-10.8)
[2024-08-14 04:59] LABS: Anion Gap 13 (12-20); Blood Urea Nitrogen 17 mg/dL (9-16); Calcium 8.5 mg/dL (8.4-10.2); Carbon Dioxide 22 mmol/L (22-29); Chloride 109 mmol/L (96-108); Creatinine Clr Calc Pharmacy 80.5; Estimated Glomerular Filt Rate > 60; Glucose Random 128 mg/dL (60-115); Potassium 3.8 mmol/L (3.3-5.1); Sodium 140 mmol/L (135-145)
--- NOTE | 2024-08-14 08:07 | PHA.MEDREC ---
Pharmacy Consult ? Medication Reconciliation Pharmacy has completed the medication reconciliation, utilized pill pack list from [facility] pharmacy that showed a monday-monday morning and night dose schedule, all claims matched. Added ketoconazole shampoo as patient got it filled at [facility] earlier this month.
[2024-08-14 08:08] LABS: Glucose, Whole Blood 170 mg/dL (60-115)
[2024-08-14] MEDS: Empagliflozin 10 MG TABLET PO (08:24)
[2024-08-14] MEDS: Enoxaparin Sodium 40 MG/0.4 ML SYRINGE SUBCUT (08:24)
--- NOTE | 2024-08-14 09:28 | MHC.CLN ---
NUTRITION PATIENT IN ED OVERFLOW. UNDERWEIGHT WITH BMI=18.1. NUTRITION ASSESSMENT TO BE COMPLETED UPON ADMISSION TO UNIT.
--- NOTE | 2024-08-14 09:35 | P.CONCA_ITS ---
History of Present Illness History of Present Illness Date of Service: 08/14/24 Chief complaint: cheng, orthosattic Narrative: This is a cardiology consultation regarding bradycardia. Discussed with patient using visual education director. He speaks some partial Greek. Per discussion with ER as well as on review of H and P, it seems that patient has a visiting nurse who apparently noted that the heart rate was low. Per documentation, thought to be in the 30s. There is also description of orthostasis. Subsequently, he was seen in the emergency room and then admitted. In the initial EKG, there was question of atrial flutter but he also apparently had tremors. Then he was admitted for further care. Today, he states he feels okay. He describes some vague palpitations but otherwise no clear-cut cardiac symptoms. There is mention of dementia, cirrhosis/hepatocellular carcinoma and thrombocytopenia in his history. Review of Systems 2 Review of Systems: Yes all other systems are reviewed and are negative Constitutional: Constitutional: Reports as per HPI and Reports no additional constitutional complaints Eyes: Eyes: Reports as per HPI and Denies no additional eye complaints ENT: Denies system reviewed and no additional complaints, except as documented and Reports as per HPI Cardiovascular: Cardiovascular: Reports as per HPI, Reports no additional cardiovascular complaints, Denies acrocyanosis, Denies cool extremities, Denies chest pain, Denies leg edema, Denies lightheadedness, Reports palpitations and Denies dyspnea Respiratory: Respiratory: Reports as per HPI, Denies no additional respiratory complaints and Denies dyspnea Gastrointestinal: Gastrointestinal: Reports as per HPI and Denies no additional gastrointestinal complaints Genitourinary: Genitourinary: Reports no additional male genitourinary complaints and Reports as per HPI Musculoskeletal: Musculoskeletal: Reports no additional musculoskeletal complaints and Reports as per HPI Integumentary/Breasts: Skin/Breast: Reports system reviewed and no additional complaints, except as docu Neurologic: Reports system reviewed and no additional complaints, except as documented and Reports as per HPI Psychiatric: Psychiatric: Reports no additional psychiatric complaints and Reports as per HPI Endocrine: Endocrine: Reports no additional endocrine complaints, Reports as per HPI and Reports palpitations Hematologic/Lymphatic: Hematologic/Lymphatic: Reports no additional hematologic/lymphatic complaints and Reports as per HPI Allergic/Immunologic: Allergic/Immunologic: Reports no additional allergic/immunologic complaints and Reports as per HPI [facility] Past Medical History Medical History BPH (benign prostatic hyperplasia) Type 2 diabetes mellitus HLD (hyperlipidemia) Memory impairment HTN (hypertension) Family History Pertinent family history: No pertinent family history Social History Social History Alcohol intake: never Patient Tobacco Use Status: Never used Tobacco Smoked in Last 30 Days: No Second Hand Smoke Exposure: No Use of substances other than those prescribed or required for medical reasons: No Advance Directives: No Advance Directives Information Provided: No Nutrition Risks: Diabetes new onset/Uncontrolled service: No Current occupational status: retired [email or web address] Allergies Allergy/AdvReac Type Severity Reaction Status Date / Time No Known Allergies Allergy Verified 08/13/24 20:59 Active Medications: Current Medications Acetaminophen (Acetaminophen 325 Mg Tablet) 650 mg PO Q6H PRN PRN Reason: Pain, Mild 1-3,fever,headache Calcium Carbonate (Calcium Carbonate 750 Mg Tab.Chew) 750 mg PO Q4H PRN PRN Reason: Heartburn Empagliflozin (Empagliflozin 10 Mg Tablet) 10 mg PO DAILY [facility] Last Admin: 08/14/24 08:24 Dose: 10 mg Enoxaparin Sodium (Enoxaparin Sodium 40 Mg/0.4 Ml Syringe) 40 mg SUBCUT Q24H [facility] Last Admin: 08/14/24 08:24 Dose: 40 mg Sodium Chloride (Ns) 1,000 mls @ 75 mls/hr IVCONT .[id number] [facility] Last Admin: 08/13/24 23:59 Dose: 75 mls/hr Magnesium Hydroxide (Milk Of Magnesia 30 Ml Oral.Susp) 30 ml PO DAILY PRN PRN Reason: Constipation Melatonin (Melatonin 3 Mg Tablet) 6 mg PO BEDTIME PRN PRN Reason: Insomnia Nystatin (Nystatin Cream 15 Gm Tube) 1 appl TOPICAL BID [facility]; Protocol Sodium Chloride (0.9 % Sodium Chloride Flush 3 Ml Syringe) 3 ml IVFLUSH QSHIFT [facility] Last Admin: 08/14/24 08:27 Dose: Not Given Tamsulosin HCl (Tamsulosin Hcl 0.4 Mg Capsule) 0.4 mg PO BEDTIME [facility] Home Medications ?Medication ?Instructions ?Recorded ?Confirmed ?Last Taken ?Type aspirin 81 mg tablet,delayed 81 mg PO DAILY 11/23/22 08/14/24 11/27/22 History release carvedilol 12.5 mg tablet 12.5 mg PO BID 08/14/24 08/14/24 Unknown History cyanocobalamin (vitamin B-12) 100 100 mcg PO DAILY 08/14/24 08/14/24 Unknown History mcg tablet empagliflozin 10 mg tablet 10 mg PO DAILY 08/14/24 08/14/24 Unknown History (Jardiance) ketoconazole 2 % shampoo 1 appl topical 2XW 08/14/24 08/14/24 Unknown History rosuvastatin 20 mg tablet 20 mg PO DAILY 08/14/24 08/14/24 Unknown History sennosides 8.6 mg tablet (senna) 8.6 mg PO DAILY 08/14/24 08/14/24 Unknown History tamsulosin 0.4 mg capsule 0.4 mg PO BEDTIME 08/14/24 08/14/24 Unknown History Physical Exam 2 Vital Signs: Vital Signs: Last Vital Signs Temp 98.1 F 08/14/24 08:00 Pulse 58 08/14/24 08:00 Resp 14 08/14/24 08:00 BP 123/54 L 08/14/24 08:00 Pulse Ox 96 08/14/24 08:00 O2 Del Method Room Air 08/14/24 08:00 BMI result Body Mass Index 18.1 Const: General: comfortable and no acute distress O rientation/consciousness: patient oriented x3 HEENT: Other: Unremarkable Head: Yes normal to inspection Neck: Neck: Yes normal visual inspection Chest: Chest palpation & inspection: normal inspection of the chest Resp: Auscultation: clear to auscultation bilaterally Cardio: Palpation: normal PMI Heart sounds: S1 normal heart sound present, S2 normal heart sound present, no gallops, no murmurs and no rubs GI: Palpation (GI): Soft to palpation Back/Spine/Pelvis: Other: unremarkable Skin: General skin exam: no rashes or lesions noted Neuro: General: patient oriented x3 Extrem: General: Yes normal to inspection Psych: Mental Status: mental status grossly normal Objective Labs and Meds 08/14/24 04:27 08/14/24 04:27 Lab results: Laboratory Results - last 24 hr 08/13/24 08/13/24 08/13/24 21:05 21:06 21:28 WBC 4.3 L RBC 3.99 L Hgb 12.4 L Hct 36.5 L MCV 91.5 MCH 31.1 MCHC 34.0 RDW 13.5 Plt Count 64 L MPV 10.3 Immature Gran % (Auto) 0.2 Neut % (Auto) 67.6 Lymph % (Auto) 21.6 [place] % (Auto) 9.2 Eos % (Auto) 1.2 Baso % (Auto) 0.2 Lymph # (Auto) 0.9 L [place] # (Auto) 0.4 Eos # (Auto) 0.1 Baso # (Auto) 0.0 Abs Immat Gran (auto) 0.01 Absolute Neuts (auto) 2.9 Absolute Nucleated RBC 0.000 Nucleated RBC % (auto) 0.0 Sodium 138 Potassium 4.1 Chloride 107 Carbon Dioxide 23 Anion Gap 12 BUN 20 H Creatinine 0.64 Estim Creat Clear Calc 67.9 Estimated GFR > 60 POC Glucose 257 H Random Glucose 260 H Calcium 8.2 L D Magnesium 2.0 Total Bilirubin 0.5 AST 88 H ALT 63 H Alkaline Phosphatase 290 H Troponin I High Sens 3.6 Total Protein 6.2 L Albumin 3.2 L TSH 2.39 Urine Color Yellow Urine Appearance Clear Urine pH 6.5 Ur Specific [place] >= 1.030 H Urine Protein Negative Urine Glucose (UA) >=1000 H Urine Ketones Negative Urine Blood Negative Urine Nitrite Negative Ur Leukocyte Esterase Negative Urine RBC 0-2 Urine WBC 0-5 Ur Squamous Epith Cells 0-2 Urine Bacteria None Seen Hyaline Casts 0-2 08/14/24 08/14/24 04:27 08:03 WBC 3.9 L RBC 3.83 L Hgb 11.8 L Hct 35.4 L MCV 92.4 MCH 30.8 MCHC 33.3 RDW 13.5 Plt Count 62 L MPV 10.5 Immature Gran % (Auto) Neut % (Auto) Lymph % (Auto) [place] % (Auto) Eos % (Auto) Baso % (Auto) Lymph # (Auto) [place] # (Auto) Eos # (Auto) Baso # (Auto) Abs Immat Gran (auto) Absolute Neuts (auto) Absolute Nucleated RBC 0.000 Nucleated RBC % (auto) 0.0 Sodium 140 Potassium 3.8 Chloride 109 H Carbon Dioxide 22 Anion Gap 13 BUN 17 H Creatinine 0.54 Estim Creat Clear Calc 80.5 Estimated GFR > 60 POC Glucose 170 H Random Glucose 128 H Calcium 8.5 Magnesium Total Bilirubin AST ALT Alkaline Phosphatase Troponin I High Sens Total Protein Albumin TSH Urine Color Urine Appearance Urine pH Ur Specific [place] Urine Protein Urine Glucose (UA) Urine Ketones Urine Blood Urine Nitrite Ur Leukocyte Esterase Urine RBC Urine WBC Ur Squamous Epith Cells Urine Bacteria Hyaline Casts ECG Interpretation: In the EKG, there is possibly artifact from tremor. Less likely it is atrial flutter. PVCs. On telemetry, looks like sinus rhythm. Assessment and Plan (1) Bradycardia: Status: Acute (2) PVC (premature ventricular contraction): Status: Acute Plan Question of bradycardia but no conclusive evidence on telemetry or EKGs. There was also a question of atrial flutter but seems to be more likely tremors then true arrhythmia. He seems otherwise asymptomatic. High sensitivity troponin is unremarkable. We can arrange outpatient follow-up. We can get a Holter monitor/echocardiogram. Discussed with patient using visual education director. Procedures Date of Service Date of Service: 08/14/24
--- NOTE | 2024-08-14 10:01 | PM.DS ---
DS: Providers Provider Date of Service: 08/14/24 Date of admission: 08/13/24 23:22 Date of discharge: 08/14/24 Primary care physician: Beatriz Ernst MD Consults: 08/13/24 23:22 Consult to Cardiology Routine Consulting Provider: [facility] Reason for consultation: cheng Has provider been notified: Yes DS: Diagnosis Discharge Diagnosis (1) Bradycardia: Status: Acute (2) PVC (premature ventricular contraction): Status: Acute DS: Summary Hospital Course Hospital Course: Chief Complaint: cheng, hypotensive 83M PMH unspecified cirrhosis with HCC, unspecified dementia, dm, bph, lymphoma, sent in after visiting nurse noted bradycardia to 30s. EMS came and confirmed low heart rate per report, also noted to be orthostatic to 88 systolic on standing. patient asymptomatic. on coreg. in ED in NSR in 60s. orthostatics negative, sbp around 110. hospital course: The patient was admitted and monitored on telemetry. His heart rate remained in the high 50s, with no sinus pauses and no symptoms. His blood pressure was in the low-normal range, and no other arrhythmias were detected.He was evaluated by cardiology, who provided the following assessment and recommendations: There was a question of bradycardia, but no conclusive evidence was found on telemetry or EKGs. There was also concern for atrial flutter, but this appears more likely to be tremors rather than a true arrhythmia. The patient is otherwise asymptomatic. High-sensitivity troponin was unremarkable. We can arrange outpatient follow-up, including a Holter monitor and echocardiogram. The patient was advised to resume his usual medications and follow up with cardiology as an outpatient. Final diagnosis: Bradycardia Time Attestation Discharge Coordination Time (in mins): 35 Quality: Safe Use of Opioids Does Pt have an Active Cancer Diagnosis on the Problem List?: No Quality: Stroke Does the patient have a stroke diagnosis?: No Physical Exam Vital Signs: Vital Signs: Last Vital Signs Temp 98.1 F 08/14/24 08:00 Pulse 58 08/14/24 08:00 Resp 14 08/14/24 08:00 BP 123/54 L 08/14/24 08:00 Pulse Ox 96 08/14/24 08:00 O2 Del Method Room Air 08/14/24 08:00 BMI result Body Mass Index 18.1 Const: Other: General: AO, no acute distress Resp: CTA bilateral CVS: S1,S2,RRR GI: +BS, NT, no distention Skin: No rash Neuro: motor grossly intact Psych: appropriate affect DS: Data Data Completed and Pending Labs on day of discharge: Laboratory Results - last 24 hr 08/13/24 08/13/24 08/13/24 21:05 21:06 21:28 WBC 4.3 L RBC 3.99 L Hgb 12.4 L Hct 36.5 L MCV 91.5 MCH 31.1 MCHC 34.0 RDW 13.5 Plt Count 64 L MPV 10.3 Immature Gran % (Auto) 0.2 Neut % (Auto) 67.6 Lymph % (Auto) 21.6 [place] % (Auto) 9.2 Eos % (Auto) 1.2 Baso % (Auto) 0.2 Lymph # (Auto) 0.9 L [place] # (Auto) 0.4 Eos # (Auto) 0.1 Baso # (Auto) 0.0 Abs Immat Gran (auto) 0.01 Absolute Neuts (auto) 2.9 Absolute Nucleated RBC 0.000 Nucleated RBC % (auto) 0.0 Sodium 138 Potassium 4.1 Chloride 107 Carbon Dioxide 23 Anion Gap 12 BUN 20 H Creatinine 0.64 Estim Creat Clear Calc 67.9 Estimated GFR > 60 POC Glucose 257 H Random Glucose 260 H Calcium 8.2 L D Magnesium 2.0 Total Bilirubin 0.5 AST 88 H ALT 63 H Alkaline Phosphatase 290 H Troponin I High Sens 3.6 Total Protein 6.2 L Albumin 3.2 L TSH 2.39 Urine Color Yellow Urine Appearance Clear Urine pH 6.5 Ur Specific [place] >= 1.030 H Urine Protein Negative Urine Glucose (UA) >=1000 H Urine Ketones Negative Urine Blood Negative Urine Nitrite Negative Ur Leukocyte Esterase Negative Urine RBC 0-2 Urine WBC 0-5 Ur Squamous Epith Cells 0-2 Urine Bacteria None Seen Hyaline Casts 0-2 08/14/24 08/14/24 04:27 08:03 WBC 3.9 L RBC 3.83 L Hgb 11.8 L Hct 35.4 L MCV 92.4 MCH 30.8 MCHC 33.3 RDW 13.5 Plt Count 62 L MPV 10.5 Immature Gran % (Auto) Neut % (Auto) Lymph % (Auto) [place] % (Auto) Eos % (Auto) Baso % (Auto) Lymph # (Auto) [place] # (Auto) Eos # (Auto) Baso # (Auto) Abs Immat Gran (auto) Absolute Neuts (auto) Absolute Nucleated RBC 0.000 Nucleated RBC % (auto) 0.0 Sodium 140 Potassium 3.8 Chloride 109 H Carbon Dioxide 22 Anion Gap 13 BUN 17 H Creatinine 0.54 Estim Creat Clear Calc 80.5 Estimated GFR > 60 POC Glucose 170 H Random Glucose 128 H Calcium 8.5 Magnesium Total Bilirubin AST ALT Alkaline Phosphatase Troponin I High Sens Total Protein Albumin TSH Urine Color Urine Appearance Urine pH Ur Specific [place] Urine Protein Urine Glucose (UA) Urine Ketones Urine Blood Urine Nitrite Ur Leukocyte Esterase Urine RBC Urine WBC Ur Squamous Epith Cells Urine Bacteria Hyaline Casts Discharge Plan Discharge Anticipated Discharge Date/Time: 08/14/24 09:51 Patient Disposition: Home, Self-Care Discharge Diagnosis: Asymptomatic bradycardia Referrals: Beatriz Ernst MD [Primary Care Provider] - 1 Week Discharge Medications: New carvedilol [Coreg] 12.5 mg tablet 12.5 mg PO Q12H Qty: 60 0RF Rx Instructions: must administer with a meal/food Continued aspirin 81 mg tablet,delayed release (DR/EC) 81 mg PO DAILY sennosides [senna] 8.6 mg Tablet 8.6 mg PO DAILY ketoconazole 2 % shampoo 1 appl topical 2XW cyanocobalamin (vitamin B-12) 100 mcg tablet 100 mcg PO DAILY tamsulosin 0.4 mg Capsule 0.4 mg PO BEDTIME rosuvastatin 20 mg Tablet 20 mg PO DAILY Jardiance 10 mg Tablet 10 mg PO DAILY Discontinued carvedilol 12.5 mg Tablet 12.5 mg PO BID Rx Instructions: must administer with a meal/food Discharge Orders: Discharge Order (Routine); Ordered 08/14/24 Ordered By: Joe Cheung Diet: Diabetic diet Activity on Discharge: Walk with crutches Stand Alone Forms: Patient Portal Discharge page Print Language: Citizen Of [place] Care Plan Goals: Reassurance and father work up bradycardia Health Concerns: Asymptomatic bradycardia Plan of Treatment: No change in the medication follow up with the heart doctor for more testing Assessment: see above Discharge Date/Time: 08/14/24 10:58
== END 2024-08-14 10:58 | disposition home or self-care (01) ==
LOC: HO.ED 22:28 → HO.EDOVER 23:28
PROVIDERS: Admitting Provider Internal Medicine; Emergency Provider Internal Medicine; PCP Pediatrics; Visit Provider Internal Medicine
DX: I49.3 Ventricular premature depolarization (principal); R00.1 Bradycardia, unspecified; E11.9 Type 2 diabetes mellitus without complications; N40.0 Benign prostatic hyperplasia without lower urinary tract symptoms; E78.5 Hyperlipidemia, unspecified; F03.90 Unspecified dementia, unspecified severity, without behavioral disturbance, psychotic disturbance, mood disturbance, and anxiety; K74.60 Unspecified cirrhosis of liver; C22.0 Liver cell carcinoma; D69.6 Thrombocytopenia, unspecified; Z79.899 Other long term (current) drug therapy
CPT/HCPCS: 36415; 80048; 80053; 81001; 82947; 83735; 84443; 84484; 85025; 85027; 93005; 96360; 96361; 96372; 99222; 99285; J1650

== ENCOUNTER → 2024-08-13 23:22 | Outpatient (BNV) | payer OTHER, SELFPAY | PROVIDERS: Admitting Provider Internal Medicine; Emergency Provider Internal Medicine; PCP Pediatrics; Visit Provider Internal Medicine | DX: R00.1 Bradycardia, unspecified (principal); I49.3 Ventricular premature depolarization | CPT/HCPCS: 93010; 99222 ==

== ENCOUNTER → 2024-08-13 23:22 | Outpatient (BNV) | payer OTHER, SELFPAY | PROVIDERS: Admitting Provider Internal Medicine; Emergency Provider Internal Medicine; PCP Pediatrics; Visit Provider Internal Medicine | DX: E11.9 Type 2 diabetes mellitus without complications (principal); R00.1 Bradycardia, unspecified | CPT/HCPCS: 99223 ==

== ENCOUNTER → 2024-08-27 10:44 | Outpatient (BNV) | payer OTHER, SELFPAY | PROVIDERS: Visit Provider Internal Medicine | DX: C22.0 Liver cell carcinoma (principal) | CPT/HCPCS: 99205; G2211 ==

== ENCOUNTER 2024-09-10 18:42 | Emergency (ER) | payer OTHER, SELFPAY ==
--- NOTE | ~2024-09-10 | US_ITS ---
CLINICAL HISTORY: Hepatic cancer, bilateral lower extremity swelling Venous duplex ultrasound bilateral lower extremity Comparison: None Findings: The visualized deep veins are fully compressible with normal Doppler color flow and spectral tracings. No popliteal cyst. Subcutaneous edema in both lower extremities below the knee. IMPRESSION: 1. Negative for bilateral lower extremity deep vein thrombosis. This document has been electronically signed by: Allegra Guan MD on 09/11/2024 01:08:03
--- NOTE | ~2024-09-10 | XR_ITS ---
CLINICAL HISTORY: leg edema, ? FLUID IN CHEST PER ORDERING NURSE 1 view chest x-ray Comparison: Chest CT from 11/28/2022 Findings: Small bilateral pleural effusions with mild bibasilar atelectasis. Mild emphysematous changes. No pneumothorax. Calcifications involve the tortuous aorta. Heart size within normal limits for AP technique. Degenerative changes include imaged shoulders and imaged AC joints. IMPRESSION: Small pleural effusions with bibasilar atelectasis. This document has been electronically signed by: Chandrakant Nolasco MD on 09/10/2024 22:19:48
[2024-09-10 18:58] VITALS: BP 133/84; BP 134/74; PULSE 85; PULSE 86; RESP 18; TEMP 36.4; O2SAT 95; O2SAT 97; BMI 19.5
[2024-09-10 19:07] VITALS: BP 133/84; PULSE 86; RESP 18; TEMP 36.4; O2SAT 95
[2024-09-10 21:42] VITALS: BP 121/69; PULSE 77; RESP 16; TEMP 36.6; O2SAT 96
[2024-09-10 21:57] LABS: MANUAL DIFF FLAG NO
[2024-09-10 22:00] LABS: Basophils Percent Auto 0.1 % (0-2); Eosinophils Percent Auto 0.5 % (0-4); Hematocrit 41.1 % (42.0-52.0); Hemoglobin 14.3 g/dl (14.0-18.0); Imm Gran Abs Auto 0.01 X10*3/uL (0.00-0.03); Imm Gran Pct Auto 0.1 % (0.0-0.4); Lymphocytes Absolute Auto 1.5 X10*3/uL (1.2-4.9); Lymphocytes Percent Auto 17.8 % (20-40); Mean Corpuscular HGB Conc 34.8 g/dl (31.0-36.0); Mean Corpuscular Hemoglobin 31.4 pg (27.0-33.0); Mean Corpuscular Volume 90.1 fL (80.0-98.0); Monocytes Absolute Auto 0.6 X10*3/uL (0.1-1.2); Neutrophils Absolute Auto 6.4 x10*3/uL (2.0-8.3); Neutrophils Percent Auto 74.5 % (45-73); Platelet Count 57 X10*3/uL (160-400); Red Blood Count 4.56 X10*6/uL (4.60-5.80); Red Cell Distribution Width 15.3 % (11.0-16.0); White Blood Count 8.5 X10*3/uL (4.8-10.8)
[2024-09-10 22:15] LABS: Alanine Aminotransferase 53 U/L (0-40); Albumin Level 2.9 g/dL (3.5-5.0); Alkaline Phosphatase 285 U/L (39-117); Anion Gap 17 (12-20); Aspartate Amino Transferase 104 U/L (5-37); Bilirubin Total 1.6 mg/dL (0.0-1.0); Blood Urea Nitrogen 38 mg/dL (9-16); Calcium 8.7 mg/dL (8.4-10.2); Carbon Dioxide 18 mmol/L (22-29); Chloride 103 mmol/L (96-108); Creatinine Clr Calc Pharmacy 61.4; Estimated Glomerular Filt Rate > 60; Glucose Random 140 mg/dL (60-115); Magnesium 2.3 mg/dL (1.6-2.6); Potassium 4.1 mmol/L (3.3-5.1); Sodium 134 mmol/L (135-145); Total Protein 5.8 g/dL (6.5-8.0)
[2024-09-10 22:42] VITALS: BP 130/77; PULSE 79; RESP 16; TEMP 36.6; O2SAT 96
[2024-09-10 22:50] LABS: Appearance Urine Clear; Color Urine Yellow; Glucose Urine UA >=1000 mg/dL (Negative); Leukocyte Esterase Urine Negative (Negative); Nitrite Urine Negative (Negative); Specific Gravity - Urine >= 1.030 (1.005-1.025); UMIC TRIGGER UACC YES; Urine Blood Trace (Negative); Urine Ketones 40 mg/dL (Negative); Urine Protein Trace mg/dL (Neg-Trace)
[2024-09-10 22:55] LABS: Bacteria Urine None Seen (None Seen); Hyaline Casts Urine 0-2 /LPF (0-2); RBC Urine 0-2 /HPF (0-2); WBC Urine 0-5 /HPF (0-5)
--- NOTE | 2024-09-10 23:06 | ED_ITS ---
HPI - General Adult General Chief complaint: General Medical Stated complaint: bilteral pitting edema, hx liver cancer Time Seen by Provider: 09/10/24 23:06 Source: patient Mode of arrival: EMS Limitations: no limitations (Hard of hearing) and language barrier (Serbian speaking only, [facility] cloud administrator used) History of Present Illness ED Provider: Dr. Chang Buchanan HPI narrative: 84-year-old male with a history of diabetes mellitus, hypoglycemia, lymphoma, hypertension, hepatocellular cancer (diagnosed 12/12/2023)-currently not being treated in increased tumor growth, referred to hospice care-pending evaluation, who was sent to the emergency department by his daughter for evaluation of swollen ankles 1st noted 09/04/2024, off balance, hot flashes 09/06/2024 and feet feeling cold to touch 09/10/2024. The patient is awake and alert at the time my evaluation. He answers questions appropriately. He has no complaints. Related Data Home Medications ?Medication ?Instructions ?Recorded ?Confirmed aspirin 81 mg tablet,delayed 81 mg PO DAILY 11/23/22 09/11/24 release cyanocobalamin (vitamin B-12) 100 100 mcg PO DAILY 08/14/24 09/11/24 mcg tablet empagliflozin 10 mg tablet 10 mg PO DAILY 08/14/24 09/11/24 (Jardiance) ketoconazole 2 % shampoo 1 appl topical 2XW 08/14/24 09/11/24 rosuvastatin 20 mg tablet 20 mg PO DAILY 08/14/24 09/11/24 sennosides 8.6 mg tablet (senna) 8.6 mg PO DAILY 08/14/24 09/11/24 tamsulosin 0.4 mg capsule 0.4 mg PO BEDTIME 08/14/24 09/11/24 carvedilol 12.5 mg tablet 12.5 mg PO BID 09/11/24 09/11/24 Previous Rx's ?Medication ?Instructions ?Recorded lactulose 10 gram/15 mL oral 20 g (30 mL) PO TID 30 days #2,700 09/11/24 solution mL Allergies Allergy/AdvReac Type Severity Reaction Status Date / Time No Known Allergies Allergy Verified 09/11/24 18:36 [facility] Past Medical History Medical History BPH (benign prostatic hyperplasia) Type 2 diabetes mellitus HLD (hyperlipidemia) Memory impairment HTN (hypertension) Social History Social History Household Members: None Alcohol intake: never Patient Tobacco Use Status: Never used Tobacco Smoked in Last 30 Days: No Second Hand Smoke Exposure: No Use of substances other than those prescribed or required for medical reasons: No Advance Directives: Yes Advance Directives on File: Yes Advance Directives Date on File: 08/02/22 Do you have a plan to hurt others: No Plan service: No Current occupational status: retired Gender identity: Male Physical Exam ED Vital Signs: Vital Signs - 24 hr 09/10/24 21:42 09/10/24 22:42 09/11/24 03:48 Temperature 97.8 F 97.8 F 97.8 F Pulse Rate 77 79 61 Respiratory Rate 16 16 16 Blood Pressure 121/69 130/77 143/75 H Pulse Oximetry 96 96 98 Oxygen Delivery Method Room Air Room Air Room Air 09/11/24 03:55 Temperature 97.8 F Pulse Rate 61 Respiratory Rate 16 Blood Pressure 143/75 H Pulse Oximetry 98 Oxygen Delivery Method Room Air BMI result Body Mass Index 19.5 Vital signs were normal Exam: General: Awake, elderly man, answers questions appropriately, oriented to person and place alert in no distress Head: Normocephalic, atraumatic EENT: PERRL, Lids normal, sclera normal, conjunctiva normal, nose normal , ears normal, throat without erythema or exudates Neck: Supple, no adenopathy Lung: breath sounds symmetric, no wheezing, rales or rhonchi Chest: symmetric movement, nontender Heart: regular rate and rhythm, normal S1, S2 no murmurs or rubs Abdomen: soft, non-tender, nondistended, normal bowel sounds Back: no vertebral tenderness, no CVAT Extremities: no deformities, moves all extremities symmetrically, trace to 1+ pitting edema lower extremities bilaterally symmetric Neuro: Awake, alert, oriented, normal speech, cranial nerves intact, moves all extremities symmetrically Psych: Pleasant, cooperative Medications Administered Discontinued Medications Generic Name Dose Route Start Last Admin Trade Name Freq PRN Reason Stop Dose Admin Lactulose 30 gm 09/11/24 03:07 09/11/24 03:50 Lactulose 20 Gm/30 Ml Solution PO 09/11/24 03:08 30 gm ONCE ONE Administration Medical Decision Making Medical Decision Making MDM Narrative: 84-year-old male with a history of diabetes mellitus, hypoglycemia, lymphoma, hypertension, hepatocellular cancer (diagnosed 12/12/2023)-currently not being treated secondary to increased tumor growth, referred to hospice care-pending evaluation, who was sent to the emergency department by his daughter for evaluation of swollen ankles 1st noted 09/04/2024, off balance, hot flashes 09/06/2024 and feet feeling cold to touch 09/10/2024. The patient is awake and alert at the time my evaluation. He answers questions appropriately. He has no complaints. Vital signs were normal. Patient was oriented to person and place, answers all questions appropriately. Physical examination revealed trace to 1+ pitting edema bilateral lower extremities which were symmetric. Differential diagnosis: ?Includes but is not limited to peripheral edema, liver failure, renal failure, bilateral DVTs, elevated ammonia, urinary tract infection, dehydration, malnutrition, anemia, electrolyte abnormalities Course: 00:04 hours: CBC was [place] [address] which is chronic. Sodium low 134, bicarb low 18. BUN elevated 38, glucose elevated 140. AST, ALT and alk-phos were elevated 104, 53 and 285. Total bilirubin elevated 1.6. Urinalysis revealed an elevated specific gravity, positive ketones, positive blood. Microscopic revealed no bacteria 03:06 Duplex ultrasound of the patient was lower extremities revealed no DVTs which is reassuring. Chest x-ray did reveal small bilateral pleural effusions with basilar atelectasis. Ammonia level was high at 83. My impression is that the patient may be having intermittent periods of hepatic encephalopathy which might explain his confusion and his peripheral edema may be secondary to worsening liver dysfunction caused by his hepatocellular carcinoma. Patient was given lactulose 30 g p.o. here in the emergency department. Patient will be prescribed lactulose 20 g t.i.d.. I did discuss starting Lasix for the patient's peripheral edema, with his sarahieer, Ellie Haynes. she was concerned that the patient was already urinating frequently and this has been a concerned for the patient. Therefore, we will not start Lasix at this time and I did tell the daughter is a peripheral edema gets significantly worse then he was provider can prescribe this medication. Admission/Observation Consideration of admission/observation: Escalation of care including admission/observation considered (Yes) Lab Data MDM Lab Attestation statement: I reviewed the patient's lab results. 09/10/24 21:51 09/10/24 21:51 Labs: Lab Results 09/10/24 09/10/24 09/10/24 Range/Units 21:51 22:44 23:40 WBC 8.5 (4.8-10.8) X10*3/uL RBC 4.56 L (4.60-5.80) X10*6/uL Hgb 14.3 (14.0-18.0) g/dl Hct 41.1 L (42.0-52.0) % MCV 90.1 (80.0-98.0) fL MCH 31.4 (27.0-33.0) pg MCHC 34.8 (31.0-36.0) g/dl RDW 15.3 (11.0-16.0) % Plt Count 57 L D (160-400) X10*3/uL MPV 10.0 (9.4-12.4) fL Immature Gran % (Auto) 0.1 (0.0-0.4) % Neut % (Auto) 74.5 H (45-73) % Lymph % (Auto) 17.8 L (20-40) % [place] % (Auto) 7.0 (2-11) % Eos % (Auto) 0.5 (0-4) % Baso % (Auto) 0.1 (0-2) % Lymph # (Auto) 1.5 (1.2-4.9) X10*3/uL [place] # (Auto) 0.6 (0.1-1.2) X10*3/uL Eos # (Auto) 0.0 (0.0-0.4) X10*3/uL Baso # (Auto) 0.0 (0.0-0.2) X10*3/uL Abs Immat Gran (auto) 0.01 (0.00-0.03) X10*3/uL Absolute Neuts (auto) 6.4 (2.0-8.3) x10*3/uL Absolute Nucleated RBC 0.000 (0.0-0.012) X10*3/uL Nucleated RBC % (auto) 0.0 (0.0-0.2) /100WBC Sodium 134 L (135-145) mmol/L Potassium 4.1 (3.3-5.1) mmol/L Chloride 103 (96-108) mmol/L Carbon Dioxide 18 L (22-29) mmol/L Anion Gap 17 (12-20) BUN 38 H (9-16) mg/dL Creatinine 0.75 (0.5-1.4) mg/dL Estim Creat Clear Calc 61.4 Estimated GFR > 60 Random Glucose 140 H (60-115) mg/dL Calcium 8.7 (8.4-10.2) mg/dL Magnesium 2.3 (1.6-2.6) mg/dL Total Bilirubin 1.6 H (0.0-1.0) mg/dL AST 104 H (5-37) U/L ALT 53 H (0-40) U/L Alkaline Phosphatase 285 H (39-117) U/L Ammonia 83 H (13-55) umol/L Total Protein 5.8 L (6.5-8.0) g/dL Albumin 2.9 L (3.5-5.0) g/dL Urine Color Yellow Urine Appearance Clear Urine pH 6.0 (5.0-9.0) Ur Specific [place] >= 1.030 H (1.005-1.025) Urine Protein Trace (Neg-Trace) mg/dL Urine Glucose (UA) >=1000 H (Negative) mg/dL Urine Ketones 40 (Negative) mg/dL Urine Blood Trace H (Negative) Urine Nitrite Negative (Negative) Ur Leukocyte Esterase Negative (Negative) Urine RBC 0-2 (0-2) /HPF Urine WBC 0-5 (0-5) /HPF Ur Squamous Epith Cells 3-5 (0-2) /HPF Urine Bacteria None Seen (None Seen) Hyaline Casts 0-2 (0-2) /LPF Independent Interpretation I performed an independent interpretation of an: Plain X-Ray Interpretation: my interpretation patient's chest x-ray is as follows: small bilateral pleural effusions otherwise no acute disease Radiology Impression Discussion of test interpretation with radiology: I have reviewed the radiologist's reading. Radiologist Impression: 1 view chest x-ray Comparison: Chest CT from 11/28/2022 Findings: Small bilateral pleural effusions with mild bibasilar atelectasis. Mild emphysematous changes. No pneumothorax. Calcifications involve the tortuous aorta. Heart size within normal limits for AP technique. Degenerative changes include imaged shoulders and imaged AC joints. IMPRESSION: Small pleural effusions with bibasilar atelectasis. This document has been electronically signed by: Chandrakant Nolasco MD on 09/10/2024 22:19:48 Dictated By: Chandrakant Nolasco MD Venous duplex ultrasound bilateral lower extremity Comparison: None Findings: The visualized deep veins are fully compressible with normal Doppler color flow and spectral tracings. No popliteal cyst. Subcutaneous edema in both lower extremities below the knee. IMPRESSION: 1. Negative for bilateral lower extremity deep vein thrombosis. This document has been electronically signed by: Allegra Guan MD on 09/11/2024 01:08:03 Dictated By: Allegra Guan MD Independent Historian Clinical information obtained from an independent historian. History obtained from or confirmed by: Other ( daughter) External Record Review External record reviewed: Office record Prescription Management I considered prescription management with: Other ( lactulose) Chronic Conditions Patient?s care impacted by: Other ( hepatocellular cancer) Discharge Plan Discharge Clinical Impression: Acute hepatic encephalopathy, Edema, peripheral Patient Disposition: Home, Self-Care Instructions: Liver Disease Diet (DC), Hepatic Encephalopathy (DC) Additional Instructions: Your blood work revealed an elevated ammonia level which suggests that your liver is not working as well as it should and this can often make you confused. The treatment is to take a medicine called lactulose. Take lactulose 10 g per 15 mL, 30 mL ( 2 tbsp) 3 times a day. This medication can sometimes cause diarrhea. If it causes diarrhea you can reduce the medicine to 2 times a day Take all of your medications as prescribed by your providers.. Follow-up with your doctor in 2 days. Please return to the emergency department if your symptoms get worse or if you develop any symptoms that are concerning to you. Prescriptions: New lactulose 10 gram/15 mL solution 20 g PO TID 30 Days Qty: 2700 3RF No Action aspirin 81 mg tablet,delayed release (DR/EC) 81 mg PO DAILY sennosides [senna] 8.6 mg Tablet 8.6 mg PO DAILY ketoconazole 2 % shampoo 1 appl topical 2XW cyanocobalamin (vitamin B-12) 100 mcg tablet 100 mcg PO DAILY tamsulosin 0.4 mg Capsule 0.4 mg PO BEDTIME rosuvastatin 20 mg Tablet 20 mg PO DAILY Jardiance 10 mg Tablet 10 mg PO DAILY carvedilol 12.5 mg tablet 12.5 mg PO BID Interventions: ED Discharge Assessment Last Done: 09/11/24 03:55 Discharge Date/Time: 09/11/24 04:03 Print Language: Serbian
[2024-09-10 23:52] LABS: Ammonia 83 umol/L (13-55)
[2024-09-11 03:48] VITALS: BP 143/75; PULSE 61; RESP 16; TEMP 36.6; O2SAT 98
[2024-09-11] MEDS: Lactulose 20 GM/30 ML SOLUTION 30 GM PO (03:50)
[2024-09-11 03:55] VITALS: BP 143/75; PULSE 61; RESP 16; TEMP 36.6; O2SAT 98
== END 2024-09-11 04:03 | disposition home or self-care (01) ==
PROVIDERS: Emergency Provider Emergency Medicine Emergency Medical Services; PCP Pediatrics
DX: K76.82 Hepatic encephalopathy (principal); R60.0 Localized edema; J90 Pleural effusion, not elsewhere classified; Z79.899 Other long term (current) drug therapy
CPT/HCPCS: 36415; 71045; 80053; 81001; 82140; 83735; 85025; 93970; 99284

== ENCOUNTER → 2024-09-10 21:55 | Outpatient (BNV) | payer OTHER, SELFPAY | PROVIDERS: PCP Pediatrics; Visit Provider Radiology Neuroradiology | DX: J90 Pleural effusion, not elsewhere classified (principal); J98.11 Atelectasis | CPT/HCPCS: 71045 ==

== ENCOUNTER 2024-09-11 18:09 | Emergency (ER) | payer OTHER, SELFPAY ==
[2024-09-11 18:32] VITALS: BP 133/78; BP 135/87; PULSE 90; PULSE 98; RESP 19; TEMP 36.6; O2SAT 97; BMI 20.7
[2024-09-11 18:38] VITALS: BP 133/78; PULSE 98; RESP 19; TEMP 36.6; O2SAT 97
--- NOTE | 2024-09-11 18:43 | PC.NURSE ---
Pt comes ED via EMS from home. Per EMS, Pt seen here yesterday and noted to have elevated Ammonia level. Lactulose given and Rx sent to Pharmacy. Family reports Pt with increased AMS and weakness today. No doses of Lactulose received as Pharmacy has just alert family that Rx is ready. Pt is alert and oriented to self, place, and situation. 20g LAC placed by EMS. Pt placed on cardiac monitoring--EMS reports PVC's. Skin is warm and dry Breaths and speech are unlabored. Facial symmetry noted. Pt arrives with typed med list and additional medical information as well as contact info for daughter. Paperwork placed in hard chart. Awaiting ED provider.
--- NOTE | 2024-09-11 18:46 | ED.AMS ---
HPI - Altered Mental Status General Chief Complaint: Altered Mental Status Stated Complaint: palpitations, ams Time Seen by Provider: 09/11/24 18:34 Source: EMS Mode of arrival: EMS Limitations: no limitations History of Present Illness ED Provider: HPI narrative: Patient with history of diabetes mellitus, hypoglycemia, lymphoma, hypertension, hepatocellular cancer (diagnosed 12/12/2023)-currently not being treated in increased tumor growth on hospice just discharged yesterday supposed to take lactulose for high ammonia level of 85 which she did not take today and daughter thinks his more confused in ER if patient seems to be at baseline patient is discharged home at 03:55 today and received the lactulose prior to that Related Data Home Medications ?Medication ?Instructions ?Recorded ?Confirmed aspirin 81 mg tablet,delayed 81 mg PO DAILY 11/23/22 09/06/24 release cyanocobalamin (vitamin B-12) 100 100 mcg PO DAILY 08/14/24 09/06/24 mcg tablet empagliflozin 10 mg tablet 10 mg PO DAILY 08/14/24 09/06/24 (Jardiance) ketoconazole 2 % shampoo 1 appl topical 2XW 08/14/24 09/06/24 rosuvastatin 20 mg tablet 20 mg PO DAILY 08/14/24 09/06/24 sennosides 8.6 mg tablet (senna) 8.6 mg PO DAILY 08/14/24 09/06/24 tamsulosin 0.4 mg capsule 0.4 mg PO BEDTIME 08/14/24 09/06/24 Previous Rx's ?Medication ?Instructions ?Recorded carvedilol 12.5 mg tablet (Coreg) 12.5 mg PO Q12H #60 tabs 08/14/24 lactulose 10 gram/15 mL oral 20 g (30 mL) PO TID 30 days #2,700 09/11/24 solution mL Allergies Allergy/AdvReac Type Severity Reaction Status Date / Time No Known Allergies Allergy Verified 09/11/24 18:36 Review of Systems Review of Systems: Yes Unobtainable due to mental status PMFSH Past Medical History Medical History BPH (benign prostatic hyperplasia) Type 2 diabetes mellitus HLD (hyperlipidemia) Memory impairment HTN (hypertension) Social History Social History Household Members: None Alcohol intake: never Patient Tobacco Use Status: Never used Tobacco Smoked in Last 30 Days: No Second Hand Smoke Exposure: No Use of substances other than those prescribed or required for medical reasons: No Advance Directives: Yes Advance Directives on File: Yes Advance Directives Date on File: 08/02/22 Do you have a plan to hurt others: No Plan service: No Current occupational status: retired Gender identity: Male Physical Exam ED Vital Signs: Vital Signs - 24 hr 09/11/24 18:32 09/11/24 18:38 09/11/24 20:09 Temperature 97.8 F 97.8 F 97.4 F Pulse Rate 98 98 90 Respiratory Rate 19 19 18 Blood Pressure 133/78 133/78 134/80 Pulse Oximetry 97 97 97 Oxygen Delivery Method Room Air Room Air Room Air BMI result Body Mass Index 20.7 Appearance: Alert. Oriented X1-2. No acute distress. Eyes: PERRLA, No Nystagmus ENT: Pharynx normal. Oral Mucosa moist Neck: Normal inspection. Neck supple. CVS: Normal heart rate and rhythm. Pulses normal. Respiratory: No respiratory distress. Equal air entry bilateral, no wheezing/rales/rhonchi Abdomen: Soft and nontender. Bowel sounds are present, no mass palpable, no CVA tenderness Skin: Skin warm and dry. Normal skin color. Normal skin turgor. Extremities: No lower extremity edema. No calf tenderness no hepatic flaps Neuro: Oriented X1-2. No motor deficit. No sensory deficit.No cerebellar signs , cranial nerves II-XII intact Medications Administered Discontinued Medications Generic Name Dose Route Start Last Admin Trade Name Pepito PRN Reason Stop Dose Admin Lactulose 30 gm 09/11/24 18:47 09/11/24 19:57 Lactulose 20 Gm/30 Ml Solution PO 09/11/24 18:48 30 gm ONCE ONE Administration Medical Decision Making Medical Decision Making MDM Narrative: Patient with history of diabetes mellitus, hypoglycemia, lymphoma, hypertension, hepatocellular cancer (diagnosed 12/12/2023)-currently not being treated in increased tumor growth supposed to be on hospice care unable to get it because of 24 hour care discharge yesterday missed the lactulose dose today but ammonia level was 44 family unable to take care of him patient is at his baseline of orientation case management was consulted for placement Differential Diagnosis Differential Diagnoses: The differential diagnosis associated with the presentation includes Metabolic encephalopathy/deconditioning Admission/Observation Consideration of admission/observation: Escalation of care including admission/observation considered Lab Data MDM Lab Attestation statement: I reviewed the patient's lab results. 09/11/24 19:08 09/11/24 19:08 Labs: Lab Results 09/11/24 Range/Units 19:08 WBC 10.3 (4.8-10.8) X10*3/uL RBC 5.08 (4.60-5.80) X10*6/uL Hgb 15.8 (14.0-18.0) g/dl Hct 46.8 (42.0-52.0) % MCV 92.1 (80.0-98.0) fL MCH 31.1 (27.0-33.0) pg MCHC 33.8 (31.0-36.0) g/dl RDW 15.9 (11.0-16.0) % Plt Count 66 L (160-400) X10*3/uL MPV 10.1 (9.4-12.4) fL Immature Gran % (Auto) 0.4 (0.0-0.4) % Neut % (Auto) 82.6 H (45-73) % Lymph % (Auto) 10.6 L (20-40) % [place] % (Auto) 6.0 (2-11) % Eos % (Auto) 0.2 (0-4) % Baso % (Auto) 0.2 (0-2) % Lymph # (Auto) 1.1 L (1.2-4.9) X10*3/uL [place] # (Auto) 0.6 (0.1-1.2) X10*3/uL Eos # (Auto) 0.0 (0.0-0.4) X10*3/uL Baso # (Auto) 0.0 (0.0-0.2) X10*3/uL Abs Immat Gran (auto) 0.04 H (0.00-0.03) X10*3/uL Absolute Neuts (auto) 8.5 H (2.0-8.3) x10*3/uL Absolute Nucleated RBC 0.000 (0.0-0.012) X10*3/uL Nucleated RBC % (auto) 0.0 (0.0-0.2) /100WBC Sodium 135 (135-145) mmol/L Potassium 4.6 (3.3-5.1) mmol/L Chloride 99 (96-108) mmol/L Carbon Dioxide 20 L (22-29) mmol/L Anion Gap 21 H (12-20) BUN 41 H (9-16) mg/dL Creatinine 1.00 (0.5-1.4) mg/dL Estim Creat Clear Calc 47.5 Estimated GFR > 60 Random Glucose 147 H (60-115) mg/dL Calcium 9.2 (8.4-10.2) mg/dL Total Bilirubin 2.6 H (0.0-1.0) mg/dL AST 142 H (5-37) U/L ALT 70 H (0-40) U/L Alkaline Phosphatase 310 H (39-117) U/L Ammonia 44 (13-55) umol/L Total Protein 6.2 L (6.5-8.0) g/dL Albumin 3.1 L (3.5-5.0) g/dL Discharge Plan Discharge Clinical Impression: HCC (hepatocellular carcinoma), Hepatic encephalopathy Patient Disposition: Still a Patient Prescriptions: No Action aspirin 81 mg tablet,delayed release (DR/EC) 81 mg PO DAILY lactulose 10 gram/15 mL solution 20 g PO TID 30 Days Qty: 2700 3RF sennosides [senna] 8.6 mg Tablet 8.6 mg PO DAILY ketoconazole 2 % shampoo 1 appl topical 2XW cyanocobalamin (vitamin B-12) 100 mcg tablet 100 mcg PO DAILY tamsulosin 0.4 mg Capsule 0.4 mg PO BEDTIME rosuvastatin 20 mg Tablet 20 mg PO DAILY Jardiance 10 mg Tablet 10 mg PO DAILY carvedilol [Coreg] 12.5 mg tablet 12.5 mg PO Q12H Qty: 60 0RF Rx Instructions: must administer with a meal/food Print Language: Tamazight
[2024-09-11 19:13] LABS: MANUAL DIFF FLAG NO
[2024-09-11 19:16] LABS: Basophils Percent Auto 0.2 % (0-2); Eosinophils Percent Auto 0.2 % (0-4); Hematocrit 46.8 % (42.0-52.0); Hemoglobin 15.8 g/dl (14.0-18.0); Imm Gran Abs Auto 0.04 X10*3/uL (0.00-0.03); Imm Gran Pct Auto 0.4 % (0.0-0.4); Lymphocytes Absolute Auto 1.1 X10*3/uL (1.2-4.9); Lymphocytes Percent Auto 10.6 % (20-40); Mean Corpuscular HGB Conc 33.8 g/dl (31.0-36.0); Mean Corpuscular Hemoglobin 31.1 pg (27.0-33.0); Mean Corpuscular Volume 92.1 fL (80.0-98.0); Mean Platelet Volume 10.1 fL (9.4-12.4); Monocytes Absolute Auto 0.6 X10*3/uL (0.1-1.2); Neutrophils Absolute Auto 8.5 x10*3/uL (2.0-8.3); Neutrophils Percent Auto 82.6 % (45-73); Red Blood Count 5.08 X10*6/uL (4.60-5.80); Red Cell Distribution Width 15.9 % (11.0-16.0); White Blood Count 10.3 X10*3/uL (4.8-10.8)
[2024-09-11 19:23] LABS: Ammonia 44 umol/L (13-55)
[2024-09-11 19:29] LABS: Platelet Count 66 X10*3/uL (160-400)
[2024-09-11 19:37] LABS: Alanine Aminotransferase 70 U/L (0-40); Albumin Level 3.1 g/dL (3.5-5.0); Alkaline Phosphatase 310 U/L (39-117); Anion Gap 21 (12-20); Aspartate Amino Transferase 142 U/L (5-37); Bilirubin Total 2.6 mg/dL (0.0-1.0); Blood Urea Nitrogen 41 mg/dL (9-16); Calcium 9.2 mg/dL (8.4-10.2); Carbon Dioxide 20 mmol/L (22-29); Chloride 99 mmol/L (96-108); Creatinine Clr Calc Pharmacy 47.5; Estimated Glomerular Filt Rate > 60; Glucose Random 147 mg/dL (60-115); Potassium 4.6 mmol/L (3.3-5.1); Sodium 135 mmol/L (135-145); Total Protein 6.2 g/dL (6.5-8.0)
[2024-09-11] MEDS: Lactulose 20 GM/30 ML SOLUTION 30 GM PO (19:57)
--- OUTSIDE RECORDS SUMMARY | 2024-09-11 20:04 | XMS_ITS | Encounter Summary ---
Author Organization [employer] Address [address] [place] [address] Care Team Providers Care Proprietary Trader Name Role Phone Beatriz Ernst MD Primary Care Provider [phone] Encounter Details Date Type Department Care Team ([facility] Contact Info) Description 04/19/2024 Orders Only [facility] [address] [place] [address] Provider, MD Josr Social History Tobacco Use Types Packs/Day Years Used Date Smoking Tobacco: Never Passive Smoke Exposure: Never Smokeless Tobacco: Never Depression Answer Date Recorded Patient Health Questionnaire-9 Score 1 09/12/2023 Patient Health Questionnaire-9 Score 1 09/12/2023 Last PHQ-9: Questionnaire Data Not on file 0 09/12/2023 Housing Stability Answer Date Recorded What is your housing situation today? I have ihsan gonsalez 04/02/[address] you li ve. Do you have problems with any of the following? None of the above 04/02/2024 Food Insecurity Answer Date Recorded Within the past 12 months, y ou worried that your food would run out before you got money to buy more: Never True 04/02/2024 Within the past 12 months,th e food you bought just didn't last and you didn't have enough money to get more: Never True Transportation Answer Date Recorded In the past 12 months, has l ack of transportation kept you from medical appts, meetings, work or from getting things needed for daily living? No 04/02/2024 Utilities Answer Date Recorded In the past 12 months, has t he electric, gas, oil or water company threatened to shut off services in your home? No 04/02/2024 Depression Answer Date Recorded Patient Health Questionnaire-2 Score 1 09/12/2023 Internet Access Answer Date Recorded Internet Access Q1 Yes 04/02/2024 Internet Access Q2 Not on file 04/02/2024 Sex and Gender Information Value Date Recorded Sex Assigned at Male 05/16/2022 10:17 AM EDT Legal Sex Male 10:17 AM EDT Gender Identity Male 05/16/2022 10:17 AM EDT Sexual Orientation Straight 05/16/2022 10 :17 AM EDT documented as of this encounter Plan of Treatment Not on file documented as of this encounter Procedures Procedure Name Priority Date/Time Associated Diagnosis Comments MRI ABDOMEN WO CONTRAST Routine 04/18/2024 11:37 AM EDT documented in this encounter Results * MRI ABDOMEN WO CONTRAST (04/18/2024 11:37 AM EDT) Anatomical Region Laterality Modality Magnetic Resonan ce Historical Provider MD RIVAS MRI PROCEDURES Final Result documented in this encounter Visit Diagnoses Not on filedocumented in this encounter Additional Health Concerns Assessment Noted Time PHQ-9 Depression Total Score: 1 09/12/19 24 11:43 AM EST documented as of this encounter Care Teams Proprietary Trader Relationship Specialty Start Date End Date Beatriz Ernst MD [address] [place] [id number] PCP - General Family Medicine 07/17/18 documented as of this encounter
--- OUTSIDE RECORDS SUMMARY | 2024-09-11 20:04 | XMS_ITS | Encounter Summary ---
Author Organization [employer] Address [address] [facility] 7t [place] [address] Care Team Providers Care Airline Customer Service Agent Name Role Phone Beatriz Ernst MD Primary Care Provider [phone] Reason for Visit * Reason Onset Date Comments Referral 05/28/2024 Encounter Details Date Type Department Care Team ([facility] Contact Info) Description 05/28/2024 Telephone [facility] [address] [place] [address] Beatriz Ernst MD [address] [place] [address] Referral Social History Tobacco Use Types Packs/Day Years [...] AM EDT documented as of this encounter Miscellaneous Notes * Telephone Encounter - Orlando Johnston - 05/28/2024 11:58 AM EST Tc from Nancy ([facility] ) requesting a new referral and more specify , th referral as nancy inform has to be more clarify and needs to be for occupational therapist from elbow to gingers and hands. FAX # [phone] documented in this encounter Plan of Treatment Not on file documented as of this encounter Visit Diagnoses Not on filedocumented in this encounter Additional Health Concerns Assessment Noted Time PHQ-9 Depression Total Score: 1 09/12/19 24 11:43 AM EST documented as of this encounter Care Teams Airline Customer Service Agent Relationship Specialty Start Date End Date Beatriz Ernst MD [address] [place] [phone] PCP - General Family Medicine 07/17/18 documented as of this encounter
--- OUTSIDE RECORDS SUMMARY | 2024-09-11 20:04 | XMS_ITS | Encounter Summary ---
Author Organization [employer] Address [address] [facility] 7t [place] [address] Care Team Providers Care Sheet Rock Taper Name Role Phone Beatriz Ernst MD Primary Care Provider [phone] Reason for Visit * Reason Onset Date Comments FYI 07/03/2024 Medication Question 07/03/2024 Encounter Details Date Type Department Care Team ([facility] st Contact Info) Description 07/03/2024 Telephone [facility] [address] [place] [address] Beatriz Ernst MD [address] [place] [phone] FYI; Medication Question Social History Tobacco Use Types Packs/Day Years [...] encounter Miscellaneous Notes * Telephone Encounter - Rad Hernandez - 07/03/2024 3:46 PM EST Tc from [facility] stating that Pt has skin condition on his scalp. She wanted to make a medication recommendation. The pt Condition is Seborrheic Dermatitis. The medication recommended kepocon azol 2% Shampoo. IF possible send perscrition to [facility] - [place], [place] - [address] [facility] So that pt can start as soon as possible If any questions contact Lisa at [phone] documented in this encounter Plan of Treatment Not on file documented as of this encounter Visit Diagnoses Not on filedocumented in this encounter Additional Health Concerns Assessment Noted Time PHQ-9 Depression Total Score: 1 09/12/19 24 11:43 AM EST documented as of this encounter Care Teams Sheet Rock Taper Relationship Specialty Start Date End Date Beatriz Ernst MD [address] [place] [address] PCP - General Family Medicine 07/17/18 documented as of this encounter
--- OUTSIDE RECORDS SUMMARY | 2024-09-11 20:04 | XMS_ITS | Encounter Summary ---
Author Organization [employer] Address [address] [facility] 7t [place] [address] Care Team Providers Care Activity Coordinator Name Role Phone Beatriz Ernst MD Primary Care Provider [phone] Encounter Details Date Type Department Care Team ([facility] st Contact Info) Description 03/29/2024 Orders Only [facility] MED & PEDS [address] [place], [place] [phone] Beatriz Ernst MD [address] [place] [address] Social History Tobacco Use Types Packs/Day Years [...] documented as of this encounter Care Teams Activity Coordinator Relationship Specialty Start Date End Date Beatriz Ernst MD [address] [place] [phone] PCP - General Family Medicine 07/17/18 documented as of this encounter
--- OUTSIDE RECORDS SUMMARY | 2024-09-11 20:04 | XMS_ITS | Encounter Summary ---
Author Organization [employer] Address [address] [facility] [address] [place] [address] Care Team Providers Care Newspaper Delivery Counselor Name Role Phone Beatriz Ernst MD Primary Care Provider [phone] Encounter Details Date Type Department Care Team ([facility] st Contact Info) Description 07/28/2022 Orders Only [facility] MED & PEDS [address] [place], [place] [phone] Gavi Lam LPN Social History Tobacco Use Types Packs/Day Years Used Date Smoking Tobacco: Never Assessed Depression Answer Date Recorded Patient Health Questionnaire-2 Score 0 06/28/2022 Sex and Gender Information Value Date Recorded Sex Assigned at Male 05/16/2022 10:17 AM EDT Legal Sex Male 10:17 AM EDT Gender Identity Male 05/16/2022 10:17 AM EDT Sexual Orientation Straight 05/16/2022 10 :17 AM EDT COVID-19 Exposure Response Date Recorded In the last 10 days, have yo u been in contact with someone who was confirmed or suspected to have Coronavirus/COVID-19? No / Unsure 06/28/2022 11:26 AM EST documented as of this encounter Plan of Treatment Not on file documented as of this encounter Visit Diagnoses Not on filedocumented in this encounter Care Teams Newspaper Delivery Counselor Relationship Specialty Start Date End Date Beatriz Ernst MD [address] [place] [address] PCP - General Family Medicine 07/17/18 documented as of this encounter
--- OUTSIDE RECORDS SUMMARY | 2024-09-11 20:04 | XMS_ITS | Encounter Summary ---
Author Organization [employer] Address [address] [facility] 7t [place] [address] Care Team Providers Care Manager Story Name Role Phone Beatriz Ernst MD Primary Care Provider [phone] Reason for Visit * Reason Onset Date Comments Med Refill 03/01/2024 Encounter Details Date Type Department Care Team ([facility] st Contact Info) Description 03/01/2024 Telephone [facility] [address] [place] [address] Beatriz Ernst MD [address] [place] [phone] Med Refill Social History Tobacco Use Types Packs/Day Years Used Date Smoking Tobacco: Never Passive Smoke Exposure: Never Smokeless Tobacco: Never Depression Answer Date Recorded Patient Health Questionnaire-9 Score 1 09/12/2023 Patient Health Questionnaire-9 Score 1 09/12/2023 Last PHQ-9: Questionnaire Data Not on file 0 09/12/2023 Housing Stability Answer Date Recorded What is your housing situation today? I have ihsan gonsalez 05/19/[address] you li ve. Do you have problems with any of the following? None of the above 05/19/2023 Food Insecurity Answer Date Recorded Within the past 12 months, y ou worried that your food would run out before you got money to buy more: Never True 05/19/2023 Within the past 12 months,th e food you bought just didn't last and you didn't have enough money to get more: Never True 09/2022 Transportation Answer Date Recorded In the past 12 months, has l ack of transportation kept you from medical appts, meetings, work or from getting things needed for daily living? No 05/19/2023 Utilities Answer Date Recorded In the past 12 months, has t he electric, gas, oil or water company threatened to shut off services in your home? No 05/19/2023 Depression Answer Date Recorded Patient Health Questionnaire-2 Score 1 09/12/2023 Sex and Gender Information Value Date Recorded Sex Assigned at Male 05/16/2022 10:17 AM EDT Legal Sex Male 10:17 AM EDT Gender Identity Male 05/16/2022 10:17 AM EDT Sexual Orientation Straight 05/16/2022 10 :17 AM EDT documented as of this encounter Miscellaneous Notes * Telephone Encounter - Latosha Maxwell RN - 03/01/2024 9:52 AM EDT All chronic meds pt is currently on have refills. Pt needs to contact pharmacy. * Telephone Encounter - Jayda Walters - 03/01/2024 8:35 AM EDT Tc from daughter requesting refills on all meds pt can't be without pt insurance will be soon and pt will be without insurance for almost 2 weeks. Pt have medications until Monday. [id number] [place] - [address] [place] [address] [facility] documented in this encounter Plan of Treatment Not on file documented as of this encounter Visit Diagnoses Not on filedocumented in this encounter Additional Health Concerns Assessment Noted Time PHQ-9 Depression Total Score: 1 09/12/19 24 11:43 AM EST documented as of this encounter Care Teams Manager Story Relationship Specialty Start Date End Date Beatriz Ernst MD [address] [place] [address] [place] [address] PCP - General Family Medicine 07/17/18 documented as of this encounter
--- OUTSIDE RECORDS SUMMARY | 2024-09-11 20:04 | XMS_ITS | Encounter Summary ---
Author Organization [employer] [facility] Address [address] [facility] 7t [place] [address] Care Team Providers Care Window Shade Ring Coverer Name Role Phone Beatriz Ernst MD Primary Care Provider [phone] Encounter Details Date Type Department Care Team ([facility] st Contact Info) Description 09/11/2024 Orders Only GENERIC EXTERNAL DATA DEPARTMENT Provider, Generic External Data Social History Tobacco Use Types Packs/Day Years [...] Procedure Name Priority Date/Time Associated Diagnosis Comments CBC WITH AUTO DIFFERENTIAL Routine 09/11/2024 7:08 PM EST AMMONIA (P) Routine 09/11/2024 7:08 PM EST COMPREHENSIVE METABOLIC PANEL Routine 09/11/2024 7:08 PM EST documented in this encounter Results * (ABNORMAL) Comprehensive Metabolic Panel (09/11/2024 7:08 PM EST) Sodium 135 135 - 145 mmol/L [facility] Potassium 4.6 3.3 - 5.1 mmol/L [facility] Chloride 99 96 - 108 mmol/L [facility] Carbon Dioxide 20(L) 22 - 29 mmol/L [facility] Anion Gap 21(H) 12 - 20 [facility] Urea Nitrogen (BUN) 41(H) 9 - 16 mg/dL [facility] Creatinine, Serum 1.00 0.5 - 1.4 mg/dL [facility] Creatinine Clr Calc Pharmacy 47.5 [facility] Comment:eGFR (calculated fro m the MDRD study equation) and eCrCl(calculated from the Cockcroft-Gault equation) are based ondifferent parameters and may not yield comparable results.If eCrCl result is absurd, please check patient'sheight/weight. Estimated Glomerular Filt Rate >60 [facility] Comment:Chronic Kidney Disea se: Estimated GFR < 60 mL/min/1.47b6Pxsdox Kidney Disease: Estimated GFR < 15 mL/min/1.73m2 Glucose 147(H) 60 - 115 mg/dL [facility] Calcium 9.2 8.4 - 10.2 mg/dL [facility] Bilirubin, Total 2.6(H) 0.0 - 1.0 mg/dL [facility] Comment:Slight Icterus. Aspartate Amino Transferase 142(H) 5 - 37 U/L [facility] Alanine Aminotransferase 70(H) 0 - 40 U/L [facility] Total Protein 6.2(L) 6.5 - 8.0 g/dL [facility] Albumin Level 3.1(L) 3.5 - 5.0 g/dL [facility] Alkaline Phosphatase 310(H) 39 - 117 U/L [facility] 09/11/2024 7:08 PM EST 09/11/2024 7:12 PM EST us Generic External Data Provider LAB BLOOD ORDERAB LES Final Result Performing Organization Address City/State/[facility] Co de Phone Number [facility] [address] [place] [phone] * (ABNORMAL) CBC auto differential (09/11/2024 7:08 PM EST) White Blood Count 10.3 4.8 - 10.8 X10*3/uL [facility] Red Blood Count 5.08 4.60 - 5.80 X10*6/uL [facility] Hemoglobin 15.8 14.0 - 18.0 g/dl [facility] Hematocrit 46.8 42.0 - 52.0 % [facility] Mean Corpuscular Volume 92.1 80.0 - 98.0 fL [facility] Mean Corpuscular Hemoglobin 31.1 27.0 - 33.0 pg [facility] Mean Corpuscular HGB Conc 33.8 31.0 - 36.0 g/dl [facility] Red Cell Distribution Width 15.9 11.0 - 16.0 % [facility] Platelet Count 66(L) 160 - 400 X10*3/uL [facility] Mean Platelet Volume 10.1 9.4 - 12.4 fL [facility] Neutrophils Percent Auto 82.6(H) 45 - 73 % [facility] Imm Gran Pct Auto 0.4 0.0 - 0.4 % [facility] Lymphocytes Percent Auto 10.6(L) 20 - 40 % [facility] Monocytes Percent Auto 6.0 2 - 11 % [facility] Eosinophils Percent Auto 0.2 0 - 4 % [facility] Basophils Percent Auto 0.2 0 - 2 % [facility] NRBC Pct Auto 0.0 0.0 - 0.2 /100WBC [facility] Neutrophils Absolute Auto 8.5(H) 2.0 - 8.3 x10*3/uL [facility] Imm Gran Abs Auto 0.04(H) 0.00 - 0.03 X10*3/uL [facility] Lymphocytes Absolute Auto 1.1(L) 1.2 - 4.9 X10*3/uL [facility] Monocytes Absolute Auto 0.6 0.1 - 1.2 X10*3/uL [facility] Eosinophils Absolute Auto 0.0 0.0 - 0.4 X10*3/uL [facility] Basophils Absolute Auto 0.0 0.0 - 0.2 X10*3/uL [facility] NRBC Abs Auto 0.000 0.0 - 0.012 X10*3/uL [facility] 09/11/2024 7:08 PM EST 09/11/2024 7:12 PM EST us Generic External Data Provider LAB BLOOD ORDERAB LES Final Result [facility] [address] [place] [phone] * Ammonia, Plasma (09/11/2024 7:08 PM EST) Ammonia (P) 44 13 - 55 umol/L [facility] 09/11/2024 7:08 PM EST 09/11/2024 7:12 PM EST us Generic External Data Provider LAB BLOOD ORDERAB LES Final Result Performing Organization Address City/State/[facility] Co de Phone Number [facility] [address] [place] [phone] documented in this encounter Visit Diagnoses Not on filedocumented in this encounter Additional Health Concerns Assessment Noted Time PHQ-9 Depression Total Score: 1 09/12/19 24 11:43 AM EST documented as of this encounter Care Teams Window Shade Ring Coverer Relationship Specialty Start Date End Date Beatriz Ernst MD [address] [place] [phone] PCP - General Family Medicine 07/17/18 documented as of this encounter
--- OUTSIDE RECORDS SUMMARY | 2024-09-11 20:04 | XMS_ITS | Encounter Summary ---
Author Organization [employer] [facility] Address [address] [place] [address] Care Team Providers Care Material Preparation Worker Name Role Phone Beatriz Ernst MD Primary Care Provider [phone] Encounter Details Date Type Department Care Team ([facility] st Contact Info) Description 09/10/2024 Orders Only GENERIC EXTERNAL DATA DEPARTMENT Provider, [...] Procedure Name Priority Date/Time Associated Diagnosis Comments [facility] US LOWER EXTREMITY VENOUS DUPLEX BILATERAL Routine 09/11/2024 1:08 AM EST AMMONIA (P) Routine 09/10/2024 11:40 PM EST URINALYSIS, COMPLETE, WITH REFLEX TO CULTURE Routine 09/10/2024 10:44 PM EST XR CHEST 1 VIEW Routine 09/10/2024 10:19 PM EST CBC WITH AUTO DIFFERENTIAL Routine 09/10/2024 9:51 PM EST MAGNESIUM Routine 09/10/2024 9:51 PM EST COMPREHENSIVE METABOLIC PANEL Routine 09/10/2024 9:51 PM EST documented in this encounter Results * [facility] Lower Extremity Venous Duplex Bilateral (09/11/2024 1:08 AM EST) 09/11/2024 1:08 AM EST Narrative [facility] - 09/11/2024 1:10 AM EST ? [facility] ?[address] ?[place] [address] ? Ultrasound Report ? Signed ? Patient: Haynes,Adam Jr ?MR#: [id number] ?? 869 ? : 1940 ?Acct:[id number] ? Age/Sex: 84 / M ?ADM Date: 02/25/25 ? Loc: HO.ED ? Attending Dr: ? Ordering Physician: Chang Buchanan MD ?? Date of Service: 09/10/24 ?? Procedure(s): US venous duplex LE BI ?? Accession Number(s): [id number] ? cc: Beatriz Ernst MD; Chang Buchanan MD ? CLINICAL HISTORY: Hepatic cancer, bilateral lower extremity swelling ? Venous duplex ultrasound bilateral lower extremity ? Comparison: None ? Findings: ?? The visualized deep veins are fully compressible with normal Doppler color ?? flow and spectral tracings. ?? No popliteal cyst. ? Subcutaneous edema in both lower extremities below the knee. ? IMPRESSION: ?? 1. Negative for bilateral lower extremity deep vein thrombosis. ? This document has been electronically signed by: Allegra Guan MD on ?? 09/11/2024 01:08:03 ? Dictated By: ?Allegra Guan MD ? Signed By: ?<Electronically signed by Allegra Guan MD in OV> ?09/11/24 0109 ? DD/ 0108 ? TD/TT: 09/11/24 0108 ? Backup Administrative Coordinator: ? Procedure Note Gabby Daniels - 09/11/[address] [address] Ultrasound Report Signed Patient: Kevin Haynes [facility]#: [id number] 869 : 1940cct:[id number] Age/Sex: 84 / MADM Date: 09/10/24 Loc: HO.ED Attending Dr: Ordering Physician: Chang Buchanan MD Date of Service: 09/10/24 Procedure(s): US venous duplex LE BI Accession Number(s): [id number] cc: Beatriz Ernst MD; Chang Buchanan MD CLINICAL HISTORY: Hepatic cancer, bilateral lower extremity swelling Venous duplex ultrasound bilateral lower extremity Comparison: None Findings: The visualized deep veins are fully compressible with normal Doppler color flow and spectral tracings. No popliteal cyst. Subcutaneous edema in both lower extremities below the knee. IMPRESSION: 1. Negative for bilateral lower extremity deep vein thrombosis. This document has been electronically signed by: Allegra Guan MD on 09/11/2024 01:08:03 Dictated By: Allegra Guan MD Signed By: <Electronically signed by Allegra Guan MD in OV> 09/11/24108 DD/ 7 TD/TT: 09/11/24107 Backup Administrative Coordinator: [facility] External Provider CV VASC ULAR PROCEDURES Edited Result - Final Performing Organization Address [facility]/ZIP Co de Phone Number [facility] [address] [place] [address] * (ABNORMAL) Ammonia, Plasma (09/10/2024 11:40 PM EST) Ammonia (P) 83(H) 13 - 55 umol/L [facility] Comment:Slight Hemolysis.Int erpret result with caution. 09/10/2024 11:4 0 PM EST 09/10/2024 11:43 PM EST Generic External Data Provider LAB BLOOD ORDERAB LES Final Result Performing Organization Address [facility]/ZIP Co de Phone Number [facility] [address] [place] [phone] * (ABNORMAL) Urinalysis, Complete, with Reflex to Culture (09/10/2024 10:44 PM EST) Color Urine Yellow [facility] Appearance Urine Clear [facility] PH 6.0 5.0 - 9.0 [facility] Glucose Urine UA >=1000(A) Negative mg/dL [facility] Urine Blood Trace(A) Negative [facility] Specific Reedy - Urine >=1.030(H) 1.005 - 1.025 [facility] Urine Protein Trace Neg-Trace mg/dL [facility] Urine Ketones 40 Negative mg/dL [facility] Nitrite Urine Negative Negative [facility] Leukocyte Esterase Urine Negative Negative [facility] RBC Urine 0-2 0 - 2 /HPF [facility] Urine WBC 0-5 0 - 5 /HPF [facility] Urine Squamous Epithelial Cell 3-5 0 - 2 /HPF [facility] Urine Bacteria None Seen None Seen [facility] Hyaline Casts, Urine 0-2 0 - 2 /LPF [facility] 09/10/2024 10:4 4 PM EST 09/10/2024 10:48 PM EST Narrative [facility] - 09/10/2024 10:56 PM EST Urine, Clean Catch us Generic External Data Provider LAB URINE ORDERAB LES Final Result [facility] [address] [place] [address] [phone] * XR Chest 1 View (09/10/2024 10:19 PM EST) Anatomical Region Laterality Modality Chest Radiographic Arely ging 09/10/2024 10:1 9 PM EST Narrative 09/10/2024 10:21 PM EST ? [facility] ?[address] ?[place] [address] ?XRay Report ? Signed ? Patient: Kevin Haynes Jr ?MR#: [id number] ?? 869 ? : 1940 ?Acct:[id number] ? Age/Sex: 84 / M ?ADM Date: 09/10/24 ? Loc: HO.ED ? Attending Dr: ? Ordering Physician: Generic ED Physician ?? Date of Service: 09/10/24 ?? Procedure(s): XR chest 1V ?? Accession Number(s): [id number] ? cc: Beatriz Ernst MD; Generic ED Physician ? CLINICAL HISTORY: leg edema, ? FLUID IN CHEST PER ORDERING NURSE ? 1 view chest x-ray ? Comparison: Chest CT from 11/28/2022 ? Findings: ?? Small bilateral pleural effusions with mild bibasilar atelectasis. Mild ?? emphysematous changes. No pneumothorax. ?? Calcifications involve the tortuous aorta. Heart size within normal limits ?? for AP technique. ?? Degenerative changes include imaged shoulders and imaged AC joints. ? IMPRESSION: ?? Small pleural effusions with bibasilar atelectasis. ? This document has been electronically signed by: Chandrakant Nolasco MD on ?? 09/10/2024 22:19:48 ? Dictated By: ?Chandrakant Nolasco MD ? Signed By: ?<Electronically signed by Chandrakant Nolasco MD in OV> ? 09/10/242219 ? DD/ 18 ? TD/TT: 09/10/242218 ? Backup Administrative Coordinator: ? Procedure Note Jeremiah, Image - 09/10/[address] [address] XRay Report Signed Patient: Kevin Haynes MR#: [id number] : 2Acct:[id number] Age/Sex: 84 / MADM Date: 09/10/24 Loc: HO.ED Attending Dr: Ordering Physician: Generic ED Physician Date of Service: 09/10/24 Procedure(s): XR chest 1V Accession Number(s): [id number] cc: Beatriz Ernst MD; Generic ED Physician CLINICAL HISTORY: leg edema, ? FLUID IN CHEST PER ORDERING NURSE 1 view chest x-ray Comparison: Chest CT from 11/28/2022 Findings: Small bilateral pleural effusions with mild bibasilar atelectasis. Mild emphysematous changes. No pneumothorax. Calcifications involve the tortuous aorta. Heart size within normal limits for AP technique. Degenerative changes include imaged shoulders and imaged AC joints. IMPRESSION: Small pleural effusions with bibasilar atelectasis. This document has been electronically signed by: Chandrakant Nolasco MD on 09/10/2024 22:19:48 Dictated By: Chandrakant Nolasco MD Signed By: <Electronically signed by Chandrakant Nolasco MD in OV> 09/10/242219 DD/ 18 TD/TT: 09/10/242218 Backup Administrative Coordinator: us [facility] External Provider IMG XR PROCEDURES Final Result * Magnesium (09/10/2024 9:51 PM EST) Magnesium 2.3 1.6 - 2.6 mg/dL [facility] 09/10/2024 9:51 PM EST 09/10/2024 9:56 PM EST us Generic External Data Provider LAB BLOOD ORDERAB LES Final Result [facility] [address] [place] [phone] [phone] * (ABNORMAL) Comprehensive Metabolic Panel (09/10/2024 9:51 PM EST) Sodium 134(L) 135 - 145 mmol/L [facility] Potassium 4.1 3.3 - 5.1 mmol/L [facility] Comment:Slight Hemolysis.Int erpret result with caution. Chloride 103 96 - 108 mmol/L [facility] Carbon Dioxide 18(L) 22 - 29 mmol/L [facility] Anion Gap 17 12 - 20 [facility] Urea Nitrogen (BUN) 38(H) 9 - 16 mg/dL [facility] Creatinine, Serum 0.75 0.5 - 1.4 mg/dL [facility] Creatinine Clr Calc Pharmacy 61.4 [facility] Comment:eGFR (calculated fro m the MDRD study equation) and eCrCl(calculated from the Cockcroft-Gault equation) are based ondifferent parameters and may not yield comparable results.If eCrCl result is absurd, please check patient'sheight/weight. Estimated Glomerular Filt Rate >60 [facility] Comment:Chronic Kidney Disea se: Estimated GFR < 60 mL/min/[id number] Kidney Disease: Estimated GFR < 15 mL/min/1.73m2 Glucose 140(H) 60 - 115 mg/dL [facility] Calcium 8.7 8.4 - 10.2 mg/dL [facility] Bilirubin, Total 1.6(H) 0.0 - 1.0 mg/dL [facility] Aspartate Amino Transferase 104(H) 5 - 37 U/L [facility] Comment:Slight Hemolysis.Int erpret result with caution. Alanine Aminotransferase 53(H) 0 - 40 U/L [facility] Total Protein 5.8(L) 6.5 - 8.0 g/dL [facility] Albumin Level 2.9(L) 3.5 - 5.0 g/dL [facility] Alkaline Phosphatase 285(H) 39 - 117 U/L [facility] 09/10/2024 9:51 PM EST 09/10/2024 9:56 PM EST us Generic External Data Provider LAB BLOOD ORDERAB LES Final Result [facility] [address] [place] [phone] * (ABNORMAL) CBC auto differential (09/10/2024 9:51 PM EST) White Blood Count 8.5 4.8 - 10.8 X10*3/uL [facility] Red Blood Count 4.56(L) 4.60 - 5.80 X10*6/uL [facility] Hemoglobin 14.3 14.0 - 18.0 g/dl [facility] Hematocrit 41.1(L) 42.0 - 52.0 % [facility] Mean Corpuscular Volume 90.1 80.0 - 98.0 fL [facility] Mean Corpuscular Hemoglobin 31.4 27.0 - 33.0 pg [facility] Mean Corpuscular HGB Conc 34.8 31.0 - 36.0 g/dl [facility] Red Cell Distribution Width 15.3 11.0 - 16.0 % [facility] Platelet Count 57(L) 160 - 400 X10*3/uL [facility] Mean Platelet Volume 10.0 9.4 - 12.4 fL [facility] Neutrophils Percent Auto 74.5(H) 45 - 73 % [facility] Imm Gran Pct Auto 0.1 0.0 - 0.4 % [facility] Lymphocytes Percent Auto 17.8(L) 20 - 40 % [facility] Monocytes Percent Auto 7.0 2 - 11 % [facility] Eosinophils Percent Auto 0.5 0 - 4 % [facility] Basophils Percent Auto 0.1 0 - 2 % [facility] NRBC Pct Auto 0.0 0.0 - 0.2 /100WBC [facility] Neutrophils Absolute Auto 6.4 2.0 - 8.3 x10*3/uL [facility] Imm Gran Abs Auto 0.01 0.00 - 0.03 X10*3/uL [facility] Lymphocytes Absolute Auto 1.5 1.2 - 4.9 X10*3/uL [facility] Monocytes Absolute Auto 0.6 0.1 - 1.2 X10*3/uL [facility] Eosinophils Absolute Auto 0.0 0.0 - 0.4 X10*3/uL [facility] Basophils Absolute Auto 0.0 0.0 - 0.2 X10*3/uL [facility] NRBC Abs Auto 0.000 0.0 - 0.012 X10*3/uL [facility] 09/10/2024 9:51 PM EST 09/10/2024 9:56 PM EST us Generic External Data Provider LAB BLOOD ORDERAB LES Final Result [facility] [address] [place] [phone] documented in this encounter Visit Diagnoses Not on filedocumented in this encounter Additional Health Concerns Assessment Noted Time PHQ-9 Depression Total Score: 1 09/12/19 24 11:43 AM EST documented as of this encounter Care Teams Material Preparation Worker Relationship Specialty Start Date End Date Beatriz Ernst MD [address] [place] [phone] PCP - General Family Medicine 07/17/18 documented as of this encounter
--- OUTSIDE RECORDS SUMMARY | 2024-09-11 20:04 | XMS_ITS | Encounter Summary ---
Author Organization [employer] Address [address] [place] [address] Care Team Providers Care Mat Linker Name Role Phone Beatriz Ernst MD Primary Care Provider [phone] Reason for Visit * Reason Onset Date Comments Medication Question 09/03/2024 Encounter Details Date Type Department Care Team ([facility] Contact Info) Description 09/03/2024 Telephone [facility] [address] [place] [address] Beatriz Ernst MD [address] [place] [phone] Medication Question Social History Tobacco Use Types [...] encounter Miscellaneous Notes * Telephone Encounter - Zully Odonnell - 09/03/2024 10:11 AM EST Tc from Lisa stating that Senna S 8.6-50 MG tablet is not effective and asking for change to 2 tablets at bedtime. Any questions contact: [phone] documented in this encounter Plan of Treatment Not on file documented as of this encounter Visit Diagnoses Not on filedocumented in this encounter Additional Health Concerns Assessment Noted Time PHQ-9 Depression Total Score: 1 09/12/19 24 11:43 AM EST documented as of this encounter Care Teams Mat Linker Relationship Specialty Start Date End Date Beatriz Ernst MD [address] [place] [phone] PCP - General Family Medicine 07/17/18 documented as of this encounter
--- OUTSIDE RECORDS SUMMARY | 2024-09-11 20:04 | XMS_ITS | Data Portability ---
Author Organization [facility] [employer] Address [address] [place] [address] Care Team Providers Care Jd Edwards Developer Name Role Phone HIM JESSICA OTHER Assessment Encounter Date Assessment Date Assessment LastModified by Organization Details LastModified Time 06/25/2024 06/25/2024 I provided real -time medical direction via phone for this encounter, and was available for additional phone based assistance as needed. I have reviewed and agree with the Assessment and Plan as documented by the Package Dyeing Machine Operator. We discussed the diagnostic uncertainty of home visits and the risk associated with this. I felt this to be an acceptable and reasonable amount of risk given the benefit of avoiding an ED visit. The patient given the opportunity to ask questions. Advised close follow-up with PCP for wound management /if develops AMS/spreading redness, severe pain/ hi fever will need to be rechecked immediately likely in the emergency department - verbalized understanding of instruction [email or web address] Not available 06/25/2024 14:06:03 08/13/2024 08/13/2024 As noted, we were called to see this patient regarding concerns of low heart rate. Evaluation in the field was performed by my senior accountant cpa colleague, as noted above, I provided real-time direction and supervision for this visit. The evaluation revealed 83 yo man with dementia, end stage liver cancer who was noted by MASTER COOK to have a low HR today and yesterday. His daughter is present at the visit. He has regular recordings of VS and starting yesterday had progressive decrease in HR and BP. He is forgetful at baseline but lives alone. Recently he has been losing more weight and not walking as much. He has not had falls that his daughter is aware of. He has a MASTER COOK from 03-18. He recently stopped his lisiprol. He took his nighttime meds including coreg already. He is enrolled in palliative care, with visits once per month. His daughter tried to call PCP office today without answer. On exam he appears unsteady. He is orthostatic with standing BP 84/43 from 114/61. He is bradycardic to 40s with 2nd degree heart block on EKG. Impression: Hypotension and bradycardia, new onset - 2nd d heart block Plan: After discussion of options to stay home and treat hypotension with IVF and arrange for close follow up vs transfer to hospital, will proceed with hospital transfer for work up of acute hypotension and bradycardia. [email or web address] Not available 08/13/2024 20:02:50 Plan of Treatment Reminders Order Date Submit Date Provider Last Modified By Organization Details Last Modified Time Details Appointments None recorded. Lab None recorded. Referral None recorded. Procedures None recorded. Surgeries None recorded. Imaging None recorded. Medication Orders bacitracin 500 unit/gram topical ointment 2023 [email or web address] [facility], [address] [place] [address], [id number], 4 14:05:00 bacitracin zinc 500 unit/gram topical ointment 2023 024 [facility], [address] [place] [address], [id number], 4 10:16:56 Patient TargetsNo targets recorded. Patient InstructionsNo instructions recorded. Reason for Referral None Reported. Medical Equipment None Reported. Allergies No known drug allergies Medications Name Sig Start Date Stop Date Status Note LastModified by Organization Details LastModified Time amoxicilli n 500 mg capsule TAKE 2 CAPSULES BY MOUTH EVERY 12 HOURS FOR 14 DAYS active Not Available Not Available No t Available carvedilol 12.5 mg tablet active Not Available Not Available Not Available ketoconazo le 2 % shampoo active Not Available Not Available Not Available cyanocobal moss (vit B-12) 100 mcg tablet active Not Available Not Available N ot Available clarithrom ycin 500 mg tablet TAKE 1 TABLET BY MOUTH TWICE DAILY FOR 14 DAYS active Not Available Not Available No t Available FreeStyle Lancets 28 gauge active Not Available Not Available Not Available bacitracin 500 unit/gram topical ointment Apply 1 applicati on by topical route. 2023 active to reddened area buttocks Not Available Not Available Not Available bacitracin zinc 500 unit/gram topical ointment Apply sparingly to the inflamed area on the buttocks 3 times a day for 2 weeks active Not Available Not Available No t Available aspirin 81 mg tablet,del ayed release active Not Available Not Available Not Available lorazepam 0.5 mg tablet TAKE 1 TABLET BY MOUTH ONCE, 30 MINUTES BEFORE DE MRI active Not Available Not Available No t Available tamsulosin 0.4 mg capsule active Not Available Not Available Not Available lisinopril 10 mg tablet active Not Available Not Available Not Available omeprazole 20 mg capsule,de layed release TAKE 1 CAPSULE BY MOUTH TWICE DAILY FOR 14 DAYS active Not Available Not Available No t Available methylpred nisolone 4 mg tablets in a dose pack USE DIRECTED FOR 6 DAYS active Not Available Not Available No t Available fluticason e propionate 50 mcg/actuat ion nasal spray,susp ension USE 1 SPRAY IN EACH NOSTRIL EVERY MORNING active Not Available Not Available No t Available oxycodone 5 mg tablet TAKE 1/2 TABLET BY MOUTH EVERY 6 HOURS NEEDED FOR PAIN active Not Available Not Available No t Available Senna-S 8.6 mg-50 mg tablet active Not Available Not Available No t Available rosuvastat in 20 mg tablet active Not Available Not Available Not Available Alcohol Prep Pads USE FOUR TIMES DAILY active Not Available Not Available No t Available FreeStyle Lite Strips USE DIRECTED TO TEST BLOOD SUGAR THREE TIMES DAILY active Not Available Not Available No t Available blood pressure test kit-large cuff Check blood pressure on arm as directed ONCE DAILY active Not Available Not Available No t Available Jardiance 10 mg tablet active Not Available Not Available Not Available Vitals Date Recorded Body temperature Heart rate Respiratory rate Oxygen saturation Oxygen saturation in Arterial blood by Pulse oximetry Systolic blood pressure Diastolic blood pressure Provider Name and Address Organization Details Last Updated DateTime 4 98.8 [degF] 68 /min 18 /min 97 % 97 % 126 mm[Hg] 66 mm[Hg] Not Available [facility] 4 13:59:30 Date Recorded Oxygen saturation Oxygen saturation in Arterial blood by Pulse oximetry Respiratory rate Body temperature Body weight Body height Heart rate Systolic blood pressure Diastolic blood pressure Systolic blood pressure Diastolic blood pressure Provider Name and Address Organization Details Last Updated DateTime 5 96 % 96 % 12 /min 98 [degF] 96657.8 g 182.88 cm 46 /min 114 mm[Hg] 61 mm[Hg] 84 mm[Hg] 48 mm[Hg] Not Available [facility] 19:51:05 Social History None recorded. Functional Status None recorded. Mental Status None recorded. Family History Nothing Reported. Medical History No medical history recorded. Past Encounters Encounter ID Performer Location Encounter Start Date Encounter Closed Date Diagnosis/Indication Diagnosis SNOMED-CT Code Diagnosis ICD10 Code Diagnosis Note [id number] Eileen Reyes MD [facility] [address] [place] [address] [phone] 06/25/2024 13:59:20 06/25/2024 19:21:40 Pressure injury of buttock 698047107 L89.309 Superficia l pressure injury no current signs of cellulitis -will trial ring cushion to alleviate pressure as patient spends a large amount of his day sitting. Will cover with topical antibiotic s applied sparingly. Some patients develop sensitizat ion to the triple antibiotic s-and can develop some local erythema and irritation . And Neosporin so we will switch to single antibiotic bacitracin . do not want to put a dressing at this point as the tape would be more irritating . Patient wanted to check his own blood sugar and it was 114 which is normal [id number] Perla Dobson MD [facility] [address] [place] [address] [phone] 08/13/2024 19:43:16 08/15/2024 10:32:02 Health Concerns Section Related Observation LastModified by Organization Detai ls LastModified Time None Recorded Concern Status LastModified by Organization Details LastModified Time None Recorded Advance Directives Directive None Recorded Payers Encounter Date Sequence Insurance Name Policy Number Policy Keen Covered Member ID Keen Member ID Guarantor Name 06/25/2024 1 [facility] - DOS ON OR AFTER 2022 - DUAL ELIGIBLE - SENIOR LIVING OPTIONS AND ONE CARE (MEDICARE REPLACEMENT/ADV ANTAGE - HMO) Kevin Haynes [id number] Kevin Haynes 08/13/2024 1 [facility] - DOS ON OR AFTER 2022 - DUAL ELIGIBLE - SENIOR LIVING OPTIONS AND ONE CARE (MEDICARE REPLACEMENT/ADV ANTAGE - HMO) Kevin Haynes [id number] Kevin Haynes Notes Date Note Type Note Provider Name and Address Organization Details Recorded Time 06/25/2024 text/html [facility] Nurse Triage Notes (Richelle Portillo): Reason For Request: Patient has Buttocks sore, and it's hard for the patient to Sit.Denies: Clarke ? Flash, circumferential clarke Clarke reported with black tissue to the area Open skin area after a fall with uncontrolled bleeding Abscess/infection with streaking noted, presence of fever or without History of cellulitis, isolated redness noted Fever and chills noted in setting of wound Rash Bites -bugs, spider Abscess Chief Complaints: Wound carePMH: Diabetes Mellitus Type 2, Hypertension, CancerComments: Ticket Attendant verified the name//address and phone number. Pt has a wound on on his bottom of his buttocks. Per calling and pt they do not know how large the area is, but it is bilateral buttocks where he sits, denies coccyx area. Pt states it has been there for months but will not have anyone look at the area. but is agreed to have a medic examine the area. He wears briefs . He is diabetic , he does not check his Blood sugar. PMH liver cancer , still getting active treatment Education provided on the response time and the Patient was advised to monitor reported s/s and seek emergency treatment if needed SEGMD: No fever, chills, no discharge,. He is ambulatory but spends a lot of time sitting. He does check his own blood sugar and it has been running normal. ..................... ..................... ..................... ..................... ..................... ..................... ............... Package Dyeing Machine Operator Note From Chinedu Arellano: Dispatched to the call address for the male with a wound on his buttock. Pt states he has had some soreness in the middle of his butt for a couple of months now but it has gotten worse over the last couple of days to the point where it is painful to sit in certain positions. Pt has been using Neosporin with some effect. Pt has not let MASTER COOK see the area to assess it. Pt denies fevers, diff breathing/sob, chest pain or urinary s/s. Pt was found sitting in living room chair, CAOx4, airway open and patent, breathing non labored, able to speak in full sentences, -JVD, -HEENT, skin PWD with good turgor, mucous membranes pink and moist, +CMSx4, lung sounds CTA, abd soft non tender/distended, pupils PERRL, wound found on bilateral buttock- non open, non infectious appearing, with erythema and mildly tender. C consulted. Script called into preferred pharmacy. Bacitracin used on wound. Red flags discussed. ALL times are approx. ..................... ..................... ..................... ..................... ..................... ..................... ............... [facility] Consulted: Eileen Reyes ..Seferino.................. ..................... ..................... ..................... ..................... ..................... ............... Disposition: Eleanor Reyes MD [address] [facility], [place], [address], [place] [facility] 06/25/2024 19:06:19 08/13/2024 text/html [facility] Nurse Triage Notes (Edwina Buck - RN): Chief Complaints: Hypotension PMH: Diabetes Mellitus Type 2, Hypertension, Cancer PMH Reviewed at 08/13/2024 18:43 Allergies Reviewed at 08/13/2024 18:43 Comments: Daughter calling to request visit for low HR. HR 48 yesterday. Today HR 44. Patient is not symptomatic. BP 114/59 and HR 44 at 1pm today. Patient has terminal liver cancer. Patient is on one BP medication. Was taking 2 meds, was taken off one. Daughter does remember names of medications. Education provided on the response time and the member was advised to monitor reported s/s and seek emergency treatment if needed. Package Dyeing Machine Operator Organization Information for Pete Patrick [employer] Name: [facility] Address: [address] [place] [address], [place] [address], Test Center Manager: Rickie Berumen MD [facility] No.: [id number] Package Dyeing Machine Operator POC Test Results from Pete Patrick EKG (19:37:54) EKG test performed. Attachments uploaded as part of this test result can be found under Documents section. ..................... ..................... ..................... ..................... ..................... ..................... ............... Package Dyeing Machine Operator Note From Pete Patrick: Family arranged visit for patient. Family reports MASTER COOK noticed subtle signs of weakness earlier. BP log shows decreasing BP and HR started yesterday. Also concerned for low heart rate. Subtle signs of weakness include reluctance to use stairs and shaking while standing. Caregiver reports patient acting at baseline mentation. Patient denies complaints. Caregiver reports patient likely poor historian secondary to dementia, always says he feels fine. Patient pink warm dry secondary exam unremarkable. Moderate skin TURGOR. negative edema noted, lung sounds clear negative increase work of breathing positive full sentences. ECG to [facility]. Orthostatic vital signs positive, patient becomes unsteady on feet while standing after 30 seconds. [facility] discuss his case with patients family. Decision made to transport to ED for further care. 911 system activated report to EMS on scene. Patient transported to [facility] ED via [place]. ..................... ..................... ..................... ..................... ..................... ..................... ............... [facility] Consulted: Perla Dobson ..................... ..................... ..................... ..................... ..................... ..................... ............... Disposition: Eleanor Dobson MD [address] [facility], [place], [address], [employer] 08/15/2024 10:32:01
--- OUTSIDE RECORDS SUMMARY | 2024-09-11 20:05 | XMS_ITS | Encounter Summary ---
Author Organization [employer] Address [address] [facility] [address] [place] [address] Care Team Providers Care Maintenance Groundskeeper Name Role Phone Beatriz Ernst MD Primary Care Provider [phone] Reason for Visit * Reason Onset Date Comments Durable Medical Equipment 12/26/2022 Encounter Details Date Type Department Care Team ([facility] st Contact Info) Description 12/26/2022 Telephone C [facility] [address] [place], [place] [phone] Beatriz Ernst MD [address] [place] [address] Durable Medical Equipment Social History Tobacco Use Types Packs/Day Years Used Date Smoking Tobacco: Never Passive Smoke Exposure: Never Smokeless Tobacco: Never Depression Answer Date Recorded Patient Health Questionnaire-2 [...] suspected to have Coronavirus/COVID-19? No / Unsure 12/09/2022 8:49 AM EDT documented as of this encounter Miscellaneous Notes * Telephone Encounter - Miguel Mathew RN - 12/27/2022 9:42 AM EDT Please review message below and advise. Pt scheduled for f/u on 12/30/22. * Telephone Encounter - Emerald Quincy - 12/26/2022 9:55 AM EDT Tc from pharmacy requesting script for Blood Glucose Monitoring Suppl (FreeStyle [place] Lite) w/Device kit documented in this encounter Plan of Treatment Not on file documented as of this encounter Visit Diagnoses Not on filedocumented in this encounter Care Teams Maintenance Groundskeeper Relationship Specialty Start Date End Date Beatriz Ernst MD [address] [place] [id number] PCP - General Family Medicine 07/17/18 documented as of this encounter
--- OUTSIDE RECORDS SUMMARY | 2024-09-11 20:05 | XMS_ITS | Encounter Summary ---
Author Organization [employer] Address [address] [facility] [address] [place] [address] Care Team Providers Care Circuit Manager Name Role Phone Beatriz Ernst MD Primary Care Provider Encounter Details Date Type Department Care Team ([facility] st Contact Info) Description 11/23/2022 Orders Only [facility] [address] [place], [place] [phone] Meghan Stevens LPN Social History Tobacco Use Types Packs/Day [...] suspected to have Coronavirus/COVID-19? No / Unsure 11/22/2022 8:57 AM EDT documented as of this encounter Plan of Treatment Not on file documented as of this encounter Visit Diagnoses Not on filedocumented in this encounter Care Teams Circuit Manager Relationship Specialty Start Date End Date Beatriz Ernst MD [address] [place] [address] PCP - General Family Medicine 07/17/18 documented as of this encounter
--- OUTSIDE RECORDS SUMMARY | 2024-09-11 20:05 | XMS_ITS | Clinical Summary ---
Author Organization [facility] Address [address] [place] [address] Phone Care Team Providers Care Spray Gun Repairer Helper Name Role Phone Beatriz Ernst MD Primary Care Provider [phone] Allergies Active Allergy Reactions Criticality Noted Date Comments Atorvastatin 05/03/2024 Metformin 05/03/2024 Pioglitazone 05/03/2024 Medications acetaminophen (TYLENOL 8 HOUR) 650 mg 8 hr tablet Take by mouth. Active aspirin 81 mg EC tablet Take 1 tablet (81 mg total) by mouth daily. Active CARVEDILOL ORAL 12.5 mg. Acti ve empagliflozin (Jardiance) 10 mg tablet Take 1 tablet (10 mg total) by mouth daily. Active multivitamin (MULTIPLE VITAMINS ORAL) Activ e rosuvastatin (CRESTOR) 10 mg tablet Take 1 tablet (10 mg total) by mouth daily. Active senna-docusate (PERICOLACE) 8.6-50 mg per tablet Take 1 tablet by mouth daily. Active tamsulosin (FLOMAX) 0.4 mg 24 hr capsule Take 1 capsule (0.4 mg total) by mouth daily. Active cyanocobalamin (VITAMIN B-12) 100 mcg tablet Take 0.5 tablets (50 mcg total) by mouth daily. Active ascorbic acid (VITAMIN C) 250 mg tablet Take 1 tablet (250 mg total) by mouth daily. Active Active Problems Problem Noted Date Diagnosed Date Protein-calorie malnutrition 09/12/2023 Benign prostatic hyperplasia 06/23/2022 Recurrent anxiety 09/15/2021 Hearing loss 12/13/2013 Malignant lymphoma 08/23/2012 Hypertension 01/26/2012 Pure hypercholesterolemia 04/14/2011 Diabetes mellitus 11/11/2010 Overview (05/03/2024): Last Assessment & Plan: Will send continuous glucose monitor. Contact dermatitis 08/31/2010 Encounters Date Type Department Care Team Description 08/13/2024 Telephone [facility] Hematology Oncology [address] [place] [address] Evelia Han DO 06/24/2024 11:59 PM EST Anesthesia Event [facility] Interventional Radiology [address] [place] [address] Cheyenne Ramesh MD 06/24/2024 Telephone [facility] Cardiac Mandrel Press Hand [address] [place] [address] Reji Fernandes RN from Last 3 Months Immunizations Name Administration Dates Next Due Moderna SARS-CoV-2 COVID-19, mRNA, LNP-S, preservative free 11/09/2021,06/08/2021,09/28/2020,2020 Pfizer SARS-CoV-2 COVID-19, mRNA, LNP-S, preservative free 04/17/2023 Medical History Medical History Date Comments Liver cancer (CMS/HCC) DX:Liver cancer (HCC) History of lymphoma DX:History o f lymphoma Social History Tobacco Use Types Packs/Day Years Used Date Smoking Tobacco: Never Assessed Sex and Gender Information Value Date Recorded Sex Assigned at Male 05/31/2024 12:12 PM EST Legal Sex Male 2:16 AM EST Gender Identity Male 05/31/2024 12:12 PM EST Sexual Orientation Straight 05/31/2024 12 :12 PM EST Obstetrics History Last Filed Vital Signs Vital Sign Reading Time Taken Comments Blood Pressure 160/78 05/31/2024 1:22 PM EST Pulse 64 05/31/2024 1:22 PM EST Temperature - - Respiratory Rate 16 05/31/2024 1:22 PM EST Oxygen Saturation - - Inhaled Oxygen Concentration - - Weight 50.8 kg (112 lb) 05/31/2024 1:22 PM EST Height 172 cm (5' 7.72 ) 05/31/2024 1:22 PM EST Body Mass Index 17.17 05/31/2024 1:22 PM EST Plan of Treatment Health Maintenance Due Date Last Done Comments Diabetes: Annual Foot Exam 1950 Diabetes: Annual Retina Eye Exam 1950 Hepatitis A Vaccines (1 of 2 - Risk 2-dose series) 1960 Hepatitis B Vaccines (1 of 3 - Risk 3-dose series) 2001 Zoster Vaccines (1 of 2) 12/27/2012 11/01/2012 RSV Immunization Patients 60+ Years Old (1 - 1-dose 75+ series) 2016 Pneumococcal Vaccine: 50+ Years (2 of 2 - PPSV23) 06/10/2021 04/15/2021 Cholesterol Screening (Lipid Panel) 02/13/2024 Diabetes: Annual Urine Albumin-Creatinine Ratio (uACR) 02/13/2024 Falls Risk Assessment 02/13/2024 Medicare Annual Wellness Visit 02/13/2024 Social Influencers of Health Screening 02/13/2024 Depression Screening 09/12/2024 09/12/2023 Diabetes: Blood Sugar Control Test (HGBA1C) 09/24/2024 03/27/2024, 04/17/2020 Diabetes: Annual GFR (Glomerular Filtration Rate) 05/31/2025 05/31/2024, 03/27/2024, 08/15/2023 Hypertension/CHF/CAD Annual BMP Blood Test 05/31/2025 05/31/2024, 03/27/2024, 08/15/2023 DTaP,Tdap,and Td Vaccines (2 - Td or Tdap) 10/20/2025 10/21/2015 COVID-19 Vaccine Completed 04/04/2024, 08/2022, 09/09/2022, Additional history exists Influenza Vaccine Completed 04/04/2024, , 03/09/2023, Additional history exists HIB Vaccines Aged Out No longer eligi ble based on patient's age to complete this topic HPV Vaccines Aged Out No longer eligi ble based on patient's age to complete this topic IPV Vaccines Aged Out No longer eligi ble based on patient's age to complete this topic MMR Vaccines Aged Out No longer eligi ble based on patient's age to complete this topic Meningococcal ACWY Vaccine Aged Out N o longer eligible based on patient's age to complete this topic Meningococcal B Vacine Aged Out No lo nger eligible based on patient's age to complete this topic RSV Immunization Patients Under 20 months Aged Out No longer eligible based on patient's age to complete this topic Varicella Vaccines Aged Out No longer eligible based on patient's age to complete this topic Procedures Procedure Name Priority Date/Time Associated Diagnosis Comments COMPREHENSIVE METABOLIC PANEL Routine 05/31/2024 1:48 PM EST HEMOGLOBIN A1C Routine 04/17/2020 from Last 3 Months or Most Recently Relevant to Health Maintenance Results * (ABNORMAL) Comprehensive metabolic panel (05/31/2024 1:48 PM EST) Sodium 139 133 - 145 mmol/L LAB CHEMISTRY METHOD 05/31/2024 2:45 PM [facility] Potassium 3.9 3.5 - 5.5 mmol/L LAB CHEMISTRY METHOD 05/31/2024 2:45 PM [facility] Chloride 107 96 - 110 mmol/L LAB CHEMISTRY METHOD 05/31/2024 2:45 PM [facility] CO2 24 21 - 32 mmol/L LAB CHEMISTRY METHOD 05/31/2024 2:45 PM [facility] Anion Gap 8 3 - 11 LAB CHEMISTRY METHOD 05/31/2024 2:45 PM [facility] Glucose 130(H) 70 - 100 mg/dL LAB CHEMISTRY METHOD 05/31/2024 2:45 PM [facility] BUN 20 5 - 25 mg/dL LAB CHEMISTRY METHOD 05/31/2024 2:45 PM [facility] Creatinine 0.64(L) 0.70 - 1.30 mg/dL LAB CHEMISTRY METHOD 05/31/2024 2:45 PM [facility] eGFR 95 >=60 mL/min/1. 73m2 LAB CHEMISTRY METHOD 05/31/2024 2:45 PM [facility] Comment:Calculation based on the??Chronic Kidney Disease Epidemiology Collaboration (CKD-EPI) equation refit??without adjustment for race. BUN/Creatinine Ratio 31.3 LAB CHEMISTRY METHOD 05/31/2024 2:45 PM [facility] Calcium 9.3 8.5 - 10.5 mg/dL LAB CHEMISTRY METHOD 05/31/2024 2:45 PM [facility] AST (SGOT) 55(H) 10 - 42 unit/L LAB CHEMISTRY METHOD 05/31/2024 2:45 PM [facility] ALT (SGPT) 49 10 - 60 unit/L LAB CHEMISTRY METHOD 05/31/2024 2:45 PM [facility] Alkaline Phosphatase 142(H) 42 - 121 unit/L LAB CHEMISTRY METHOD 05/31/2024 2:45 PM [facility] Total Protein 6.6 6.0 - 8.0 g/dL LAB CHEMISTRY METHOD 05/31/2024 2:45 PM [facility] Albumin 3.5 3.2 - 5.0 g/dL LAB CHEMISTRY METHOD 05/31/2024 2:45 PM [facility] Total Bilirubin 0.8 0.0 - 1.4 mg/dL LAB CHEMISTRY METHOD 05/31/2024 2:45 PM [facility] Blood Venous blood specimen / Unknown Venipuncture / Unknown 05/31/2024 1:48 PM EST 05/31/2024 1:58 PM EST us Donald Medina MD LAB BLOOD ORDERABLES Final Res ult [facility] [address] [place] [address], * Hemoglobin A1c (04/17/2020) Hemoglobin A1C 0.0 % Comment:No interpretation ab stracted Blood Venous blood specimen / Unknown us Historical Provider LAB BLOOD ORDERABLES Elizabeth l Result from Last 3 Months or Most Recently Relevant to Health Maintenance Insurance [address] [place] [phone] [facility] MEDIC[facility] Member Subscriber Plan / Payer (Ef fective 2024-Present) Name:Kevin Haynes Relation to Subscriber:Self Name:Haynes Kevin Payer ID:[id number] Group ID:[id number] Type:Not on file Address: [place] [address] [place] [phone] Care Teams Spray Gun Repairer Helper Relationship Specialty Start Date End Date Beatriz Ernst MD [address] [place] [phone] PCP - General Pediatrics 09/28/18
--- OUTSIDE RECORDS SUMMARY | 2024-09-11 20:05 | XMS_ITS | Encounter Summary ---
Author Organization [employer] Address [address] [place] [address] Care Team Providers Care Tech Writer Name Role Phone Beatriz Ernst MD Primary Care Provider [phone] Reason for Visit * Reason Onset Date Comments Med Refill 12/26/2022 Encounter Details Date Type Department Care Team ([facility] st Contact Info) Description 12/26/2022 Telephone [facility] CHC MED & PEDS [address] [place], [place] [phone] Beatriz Ernst MD [address] [place] [address] Med Refill Social History Tobacco Use Types [...] encounter Miscellaneous Notes * Telephone Encounter - Gavi Lam LPN - 12/26/2022 10:11 AM EDT Medications were sent to [facility] Pharmacy on 12/20/22. * Telephone Encounter - Emerald Mathew - 12/26/2022 9:50 AM EDT Tc from pharmacy requesting medication refills for Alcohol Swabs (SM Alcohol Prep) 70 % pads, Alcohol Swabs (SM Alcohol Prep) 70 % pads, aspirin (Aspirin Low Dose) 81 MG EC tablet, carvedilol (Coreg)12.5 MG tablet, cyanocobalamin (Vitamin B-12) 100 MCG tablet, empagliflozin (Jardiance) 10 MG, fluticasone (Flonase) 50 MCG/ACT nasal spray, glucose blood (FREESTYLE LITE) test strip, glucose-vitaminC 4-6 GM-MG oral gel, lisinopril 10 MG tablet, Multiple Vitamin (Multivitamin) tablet, omeprazole (PriLOSEC) [address] capsule, rosuvastatin (Crestor) 20 MG tablet, tamsulosin (Flomax) 0.4 MG 24 hr capsule, TRUEplus Lancets 33G misc, [employer]Care Short Pen [place] 31G X 8 MM misc. To be sent to [facility] in [place], [place] documented in this encounter Plan of Treatment Not on file documented as of this encounter Visit Diagnoses Not on filedocumented in this encounter Care Teams Tech Writer Relationship Specialty Start Date End Date Beatriz Ernst MD [address] [place] [phone] PCP - General Family Medicine 07/17/18 documented as of this encounter
--- OUTSIDE RECORDS SUMMARY | 2024-09-11 20:05 | XMS_ITS | Continuity of Care Document ---
Author Organization [employer] Address [address] [place] [phone] Care Team Providers Care Television Picture Tube Rebuilder Name Role Phone HIM JESSICA OTHER Assessment Encounter Date Assessment Date Assessment LastModified by Organization Details LastModified Time 08/13/2024 08/13/2024 As noted, we were called to see this patient regarding concerns of low heart rate. Evaluation in the field was performed by my digital solution architect colleague, as noted above, I provided real-time direction and supervision for this visit. The evaluation revealed 83 yo man with dementia, end stage liver cancer who was noted by INGREDIENT SCALER HELPER to have a low HR today and [...] daughter is aware of. He has a INGREDIENT SCALER HELPER from 03-18. He recently stopped his lisiprol. [...] work up of acute hypotension and bradycardia. judith Not available 08/13/2024 20:02:50 Plan of Treatment Reminders Order Date Submit Date Provider Last Modified By Organization Details Last Modified Time Details Appointments None record ed. Lab None record ed. Referral None record ed. Procedures None record ed. Surgeries None record ed. Imaging None record ed. Medication Orders None record ed. Patient TargetsNo targets recorded. Patient InstructionsNo instructions [...] Not Available Not Available Vitals Date Recorded Oxygen saturation Oxygen saturation in Arterial blood by Pulse oximetry Respiratory rate Body temperature Body weight Body height Heart rate Systolic blood pressure Diastolic blood pressure Systolic blood pressure Diastolic blood pressure Provider Name and Address Organization Details Last Updated DateTime 96 % 96 % 12 /min 98 [degF] 92314.8 g 182.88 cm 46 /min 114 mm[Hg] 61 mm[Hg] 84 mm[Hg] 48 mm[Hg] Not Available [facility] - production 19:51:05 Social History None recorded. Functional Status None recorded. Mental Status None recorded. Family History Nothing Reported. Medical History No medical history recorded. Past Encounters Encounter ID Performer Location Encounter Start Date Encounter Closed Date Diagnosis/Indication Diagnosis SNOMED-CT Code Diagnosis ICD10 Code Diagnosis Note [id number] Perla Dobson MD [facility] [address] [place] [phone] 08/13/2024 19:43:16 08/15/2024 10:32:02 Health Concerns Section Related Observation LastModified by Organization Detai ls LastModified Time None Recorded Concern Status LastModified by Organization Details LastModified Time None Recorded Payers Encounter Date Sequence Insurance Name Policy Number Policy Keen Covered Member ID Keen Member ID Guarantor Name 08/13/2024 1 [facility] - DOS ON OR AFTER 2022 - DUAL ELIGIBLE - JAIL OPTIONS AND ONE CARE (MEDICARE REPLACEMENT/ADV ANTAGE - HMO) Kevin Haynes [id number] Kevin Haynes Notes Date Note Type Note Provider Name and Address Organization Details Recorded Time 08/13/2024 text/html [facility] Nurse Triage Notes (Edwina Buck - RN): Chief Complaints: Hypotension PMH: Diabetes Mellitus Type 2, Hypertension, Cancer PMH Reviewed at 08/13/2024 - 18:43 Allergies Reviewed at 08/13/2024 - 18:43 Comments: Daughter calling to request visit [...] s/s and seek emergency treatment if needed. [employer] Certified Internetwork Expert Organization Information for Pete Patrick [employer] Legal Name: [facility] [employer] Address: [address] [place] [address], [place] [address], Wind Project Manager: Rickie DINERO No.: [id number] [employer] Certified Internetwork Expert POC Test Results from Pete Patrick EKG (19:37:54) EKG test performed. Attachments uploaded as part of this test result can be found under Documents section. .................... .................... .................... .................... .................... .................... .................... . [employer] Cert[employer] Internetwork Expert Note From Pete Patrick: Family arranged visit for patient. Family reports INGREDIENT SCALER HELPER noticed subtle signs of weakness earlier. BP [...] of breathing positive full sentences. ECG to [facility]. Orthostatic vital signs positive, patient becomes unsteady on feet while standing after 30 seconds. [facility] discuss his case with patients family. Decision made to transport to ED for further care. 911 system activated report to EMS on scene. Patient transported to [facility] ED via [place]. .................... .................... .................... .................... .................... .................... .................... . [facility] Consulted: Perla Dobson .................... .................... .................... .................... .................... .................... .................... . Disposition: Fulfilled Perla Dobson MD [address] [facility],[address], [place], [phone], [place] - CASEY LACKEY 08/15/2024 10:32:01
--- OUTSIDE RECORDS SUMMARY | 2024-09-11 20:05 | XMS_ITS | Clinical Summary ---
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 Name Role Phone Beatriz Ernst MD Primary Care Provider [phone] Allergies Active Allergy Reactions Criticality Noted Date Comments Atorvastatin 01/26/2012 Metformin 01/26/2012 Pioglitazone 01/26/2012 Medications Blood Glucose Monitoring Suppl ([employer]Style [place] Lite) w/Device kit TEST BLOOD SUGAR THREE TIMES DAILY 2 Active Continuous Blood Gluc Steel Spar Operator ([employer]Style [place] 2 Sutter) deviceIndication s:Type 2 diabetes mellitus with other specified complication, with long-term current use of insulin ([facility]) Use to monitor interstitial glucose 8 times a day and prn. 1 each 3 Active ammonium lactate (Amlactin) 12 % cream Apply 1 application topically if needed for dry skin. 385 g 11 3 Active glucose-vitamin C 4-6 GM-MG oral gel To take 1 tablet in case of hypoglycemia FS < 70 mg/dl 50 tablet 3 3 Active Multiple Vitamin (Multivitamin) tablet TAKE 1 TABLET BY MOUTH EVERYDAY AT NOON 30 tablet 11 3 Active omeprazole (PriLOSEC) [address] capsule Take 1 capsule (20 mg) by mouth before breakfast. 90 capsule 1 3 Active UltiCare Short Pen [place] 31G X 8 MM misc Use as instructed 100 each 11 3 Active Blood Glucose Monitoring Suppl (FreeStyle [place] Lite) w/Device kit Use device to check blood sugars 3 times a day 1 kit 3 Active fluticasone (Flonase) 50 MCG/ACT nasal sprayIndications :Primary hypertension,[place] mar[place] allergic rhinitis, unspecified trigger Administer 1 spray into each nostril in the morning. Shake gently. Before first use, prime pump. After use, clean tip and replace cap. 16 g 11 3 Active Alcohol Swabs (SM Alcohol Prep) 70 % padsIndications: Type 2 diabetes mellitus without complication, with long-term current use of insulin (CMS/[facility]) USE FOUR TIMES DAILY 100 each 11 4 Active omeprazole (PriLOSEC) [address] capsule Take 1 capsule orally bid for 14 days 28 capsule 4 Active Aspirin Low Dose 81 MG EC tablet TAKE ONE TABLET BY MOUTH ONCE DAILY IN THE MORNING ^1R2 30 tablet 4 Active tamsulosin (Flomax) 0.4 MG 24 hr capsuleIndicatio ns:Benign prostatic hyperplasia without lower urinary tract symptoms TAKE ONE CAPSULE BY MOUTH IN THE EVENING 1/2 HOUR AFTER DINNER 30 capsule 4 Active cyanocobalamin (Vitamin B-12) 100 MCG tablet TAKE ONE TABLET BY MOUTH ONCE DAILY IN THE MORNING ^1R1 30 tablet 4 Active carvedilol (Coreg) 12.5 MG tabletIndication s:Primary hypertension TAKE 1 TABLET BY MOUTH WITH BREAKFAST AND WITH EVENING MEAL ^1R1,1R4 60 tablet 11 4 Active rosuvastatin (Crestor) 20 MG tabletIndication s:Primary hypertension TAKE ONE TABLET BY MOUTH EVERY MORNING ^1R1 30 tablet 11 4 Active Continuous Glucose Sensor (FreeStyle Lucas 2 Sensor) miscIndications: Type 2 diabetes mellitus with other specified complication, with long-term current use of insulin ([facility]) Inject 2 Units into the skin every 14 (fourteen) days. 2 each 4 025 Active glucose blood (FREESTYLE LITE) test stripIndications :Type 2 diabetes mellitus without complication, with long-term current use of insulin (CMS/HCC) TEST BLOOD SUGAR THREE TIMES DAILY 100 strip 4 Active FreeStyle lancetsIndicatio ns:Type 2 diabetes mellitus with other specified complication, with long-term current use of insulin ([facility]) 1 each by Other route 2 times daily. 100 each 12 4 025 Active empagliflozin (Jardiance) 10 MG Take 1 tablet (10 mg) by mouth Once per day. 30 tablet 11 4 Active Blood Pressure kitIndications:P rimary hypertension Check BP daily 1 kit 4 Active Senna S 8.6-50 MG tablet TAKE ONE TABLET BY MOUTH EVERY MORNING ^1R1 30 tablet 5 4 Active ketoconazole (NIZOral) 2 % shampoo Apply topically 2 (two) times a week. 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 Neck sprain 11/11/2010 Contact dermatitis 08/31/2010 Encounters Date Type Department Care Team Description 09/11/2024 Orders Only GENERIC EXTERNAL DATA DEPARTMENT Provider, Generic External Data 09/10/2024 Orders Only GENERIC EXTERNAL DATA DEPARTMENT Provider, Generic External Data 09/03/2024 Telephone [facility] [address] [place] [address] Beatriz Ernst MD Medication Question 08/15/2024 Patient Outreach [facility] [address] [place], [place] [phone] Beatriz Ernst MD Transition Of Care (Tcm) (HDF unscheduled. ED visit. ) 08/15/2024 Telephone [facility] [address] [place] [address] Beatriz Ernst MD Medication Question 08/15/2024 Telephone [facility] [address] [place] [address] Beatriz Ernst MD Hospital Follow-up 07/30/2024 Telephone [facility] [address] [place] [phone] Beatriz Ernst MD Medication Question 07/25/2024 Orders Only GENERIC EXTERNAL DATA DEPARTMENT Provider, Generic External Data 07/24/2024 Telephone [facility] [address] [place] [address] Beatriz Ernst MD Nurse Triage 07/03/2024 Orders Only [facility] [address] [place] [address] Beatriz Ernst MD 07/03/[address] [phone] Baetriz Ernst MD FYI; Medication Question from Last 3 Months Immunizations Name Administration Dates Next Due Influenza High-dose Quadriva lent Preservative Free 03/19/2021 Influenza Injectable Quadriv alant Preservative Free IIV4 MDCK 03/26/2022 Influenza Quadrivalent Adjuvanted 03/09/2023 Influenza injectable quadriv alent IIV4 with preservative 09/28/2017,04/28/2016,04/09/2015 Influenza injectable quadriv alent preservative free 04/08/2018 Influenza, High Dose Seasona l, Preservative Free 04/04/2024,04/08/2019 Influenza, IIV3, injectable 04/10/2014 Influenza, Split (incl. nav fied surface antigen) 04/12/2013,03/23/2012 Influenza, seasonal, injecta ble, preservative free 03/14/2024,03/17/2022 Moderna Covid-19 Vaccine 12+ 03/27/2022, 11/09/2021,06/08/2021,2020,08/27/2020 Moderna Covid-19 Vaccine 6+ Bivalent 09/09/2022 Pfizer Covid-19 Vaccine 12+ 04/04/2024, 3 Pneumococcal Conjugate PCV 13 04/15/2021 Tdap 10/21/2015 Zoster, live 11/01/2012 Social History Tobacco Use Types Packs/Day Years Used Date Smoking Tobacco: Never Passive Smoke Exposure: Never Smokeless Tobacco: Never Tobacco Cessation:Counseling Given: Not Answered Depression Answer Date Recorded Patient Health Questionnaire-9 [...] Orientation Straight 05/16/2022 10 :17 AM EDT Last Filed Vital Signs Vital Sign Reading Time Taken Comments Blood Pressure 127/81 05/03/2024 9:59 AM EDT Pulse 59 05/03/2024 9:59 AM EDT Temperature 36.4 ??C (97.5 ??F) 05/03/2024 9:59 AM ED T Respiratory Rate 19 05/03/2024 9:59 AM EDT Oxygen Saturation 97% 05/03/2024 9:59 AM EDT Inhaled Oxygen Concentration - - Weight 51 kg (112 lb 6 oz) 05/03/2024 9:59 AM ED T Height 170.2 cm (5' 7 ) 05/03/2024 9:59 AM EDT Body Mass Index 17.6 05/03/2024 9:59 AM EDT Plan of Treatment Health Maintenance Due Date Last Done Comments Dental Oral Exam 1940 Dental Prophylaxis 1940 Dental X-Ray: Bitewings 1940 Dental X-Ray: Full Mouth 1940 Lipid Panel 1940 Eye Exam 1951 Alcohol/Substance Use Screening 1953 Hepatitis A Vaccines (1 of 2 - Risk 2-dose series) 1960 Hepatitis B Vaccines (1 of 3 - Risk 3-dose series) 2001 Zoster Vaccines (1 of 2) 12/27/2012 11/01/2012 RSV Patients and Patients Aged 60 years or older (1 - 1-dose 75+ series) 2016 Pneumococcal Vaccine: 50+ Years (2 of 2 - PPSV23) 06/10/2021 04/15/2021 COVID-19 Vaccine ( season) 2024 04/04/2024, 04/17/2023, 09/09/2022, Additional history exists Diabetes: Hemoglobin A1C 06/26/2024 024, 08/15/2023, 12/09/2022, Additional history exists Diabetes: Urine Protein Screening 08/15/2024 08/15/2023 Depression Screening 09/12/2024 09/12/2023, 09/12/19 Diabetes: Foot Exam 09/12/2024 09/12/2023, 09/12/2023, 09/12/2023, Additional history exists SDOH Screening 04/02/2025 04/02/2024 Tobacco Screening 05/03/2025 05/03/2024 DTaP/Tdap/Td Vaccines (2 - Td or Tdap) 10/20/2025 10/21/2015 Influenza Vaccine Completed 04/04/2024, , 03/09/2023, Additional history exists HIB Vaccines Aged Out No longer eligi ble based on patient's age to complete this topic HPV Vaccines Aged Out No longer eligi ble based on patient's age to complete this topic IPV Vaccines Aged Out No longer eligi ble based on patient's age to complete this topic Meningococcal Vaccine Aged Out No jaylene manuel eligible based on patient's age to complete this topic RSV under 20 months Aged Out No longe r eligible based on patient's age to complete this topic Rotavirus Vaccines Aged Out No longer eligible based on patient's age to complete this topic Procedures Procedure Name Priority Date/Time Associated Diagnosis Comments COMPREHENSIVE METABOLIC PANEL Routine 09/11/2024 7:08 PM EST CBC WITH AUTO DIFFERENTIAL Routine 09/11/2024 7:08 PM EST AMMONIA (P) Routine 09/11/2024 7:08 PM EST VASC US LOWER EXTREMITY VENOUS DUPLEX BILATERAL Routine 09/11/2024 1:08 AM EST AMMONIA (P) Routine 09/10/2024 11:40 PM EST URINALYSIS, COMPLETE, WITH REFLEX TO CULTURE Routine 09/10/2024 10:44 PM EST XR CHEST 1 VIEW Routine 09/10/2024 10:19 PM EST MAGNESIUM Routine 09/10/2024 9:51 PM EST COMPREHENSIVE METABOLIC PANEL Routine 09/10/2024 9:51 PM EST CBC WITH AUTO DIFFERENTIAL Routine 09/10/2024 9:[address] ABDOMEN W AND WO CONTRAST Routine 07/25/2024 4:17 PM EST POCT CREATININE GFR Routine 07/25/2024 4 :11 PM EST HEMOGLOBIN A1C Routine 03/27/2024 10:24 AM EDT Primary hypertension Type 2 diabetes mellitus with other specified complication, with long-term current use of insulin ([facility]/HCC) ALBUMIN, RANDOM URINE W/CREATININE Routine 08/15/2023 11:50 AM EST Diffuse large B-cell lymphoma, unspecified body region ([facility]/HCC) Type 2 diabetes mellitus without complication, without long-term current use of insulin ([facility]) 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 White Blood Count 10.3 4.8 - 10.8 X10*3/uL [facility] Red Blood Count 5.08 4.60 - 5.80 X10*6/uL [facility] Hemoglobin 15.8 14.0 - 18.0 g/dl [facility] Hematocrit 46.8 42.0 - 52.0 % [facility] Mean Corpuscular Volume 92.1 80.0 - 98.0 fL [facility] Mean Corpuscular Hemoglobin 31.1 27.0 - 33.0 pg [facility] Mean Corpuscular HGB Conc 33.8 31.0 - 36.0 g/dl [facility] Red Cell Distribution Width 15.9 11.0 - 16.0 % [facility] Platelet Count 66(L) 160 - 400 X10*3/uL [facility] Mean Platelet Volume 10.1 9.4 - 12.4 fL [facility] Neutrophils Percent Auto 82.6(H) 45 - 73 % [facility] Imm Gran Pct Auto 0.4 0.0 - 0.4 % [facility] Lymphocytes Percent Auto 10.6(L) 20 - 40 % [facility] Monocytes Percent Auto 6.0 2 - 11 % [facility] Eosinophils Percent Auto 0.2 0 - 4 % [facility] Basophils Percent Auto 0.2 0 - 2 % [facility] NRBC Pct Auto 0.0 0.0 - 0.2 /100WBC [facility] Neutrophils Absolute Auto 8.5(H) 2.0 - 8.3 x10*3/uL [facility] Imm Gran Abs Auto 0.04(H) 0.00 - 0.03 X10*3/uL [facility] Lymphocytes Absolute Auto 1.1(L) 1.2 - 4.9 X10*3/uL [facility] Monocytes Absolute Auto 0.6 0.1 - 1.2 X10*3/uL [facility] Eosinophils Absolute Auto 0.0 0.0 - 0.4 X10*3/uL [facility] Basophils Absolute Auto 0.0 0.0 - 0.2 X10*3/uL [facility] NRBC Abs Auto 0.000 0.0 - 0.012 X10*3/uL [facility] 09/11/2024 7:08 PM EST 09/11/2024 7:12 PM EST us Generic External Data Provider LAB BLOOD ORDERAB LES Final Result Performing Organization Address City/[facility]/ZIP Co de Phone Number [facility] [address] [place] [phone] * Ammonia, Plasma (09/11/2024 7:08 PM EST) Only the most recent of2 resultswithin the time period is included. Ammonia (P) 44 13 - 55 umol/L [facility] 09/11/2024 7:08 PM EST 09/11/2024 7:12 PM EST us Generic External Data Provider LAB BLOOD ORDERAB LES Final Result Performing Organization Address City/[facility]/ZIP Co de Phone Number [facility] [address] [place] [phone] * (ABNORMAL) Comprehensive Metabolic Panel (09/11/2024 7:08 PM EST) Only the most recent of2 resultswithin the time period is included. Sodium 135 135 - 145 mmol/L [facility] Potassium 4.6 3.3 - 5.1 mmol/L [facility] Chloride 99 96 - 108 mmol/L [facility] Carbon Dioxide 20(L) 22 - 29 mmol/L [facility] Anion Gap 21(H) 12 - 20 [facility] Urea Nitrogen (BUN) 41(H) 9 - 16 mg/dL [facility] Creatinine, Serum 1.00 0.5 - 1.4 mg/dL [facility] Creatinine Clr Calc Pharmacy 47.5 [facility] Comment:eGFR (calculated fro m the MDRD study equation) and eCrCl(calculated from the Cockcroft-Gault equation) are based ondifferent parameters and may not yield comparable results.If eCrCl result is absurd, please check patient'sheight/weight. Estimated Glomerular Filt Rate >60 [facility] Comment:Chronic Kidney Disea se: Estimated GFR < 60 mL/min/1.74q8Pwcsmv Kidney Disease: Estimated GFR < 15 mL/min/1.73m2 Glucose 147(H) 60 - 115 mg/dL [facility] Calcium 9.2 8.4 - 10.2 mg/dL [facility] Bilirubin, Total 2.6(H) 0.0 - 1.0 mg/dL [facility] Comment:Slight Icterus. Aspartate Amino Transferase 142(H) 5 - 37 U/L [facility] Alanine Aminotransferase 70(H) 0 - 40 U/L [facility] Total Protein 6.2(L) 6.5 - 8.0 g/dL [facility] Albumin Level 3.1(L) 3.5 - 5.0 g/dL [facility] Alkaline Phosphatase 310(H) 39 - 117 U/L [facility] 09/11/2024 7:08 PM EST 09/11/2024 7:12 PM EST us Generic External Data Provider LAB BLOOD ORDERAB LES Final Result Performing Organization Address [facility]/State/ZIP Co de Phone Number [facility] [address] [place] [phone] * VASC Lower Extremity Venous Duplex Bilateral (09/11/2024 1:08 AM EST) 09/11/2024 1:08 AM EST Narrative [facility] - 09/11/2024 1:10 AM EST ? [facility] ?[address] ?[place] [address] ? Ultrasound Report ? Signed ? Patient: Kevin Haynes Jr ?MR#: [id number] ?? 869 ? : 1940 ?Acct:[id number] ? Age/Sex: 84 / M ?ADM Date: 09/10/24 ? Loc: HO.ED ? Attending Dr: ? Ordering Physician: Chang Buchanan MD ?? Date of Service: 09/10/24 ?? Procedure(s): US venous duplex LE BI ?? Accession Number(s): [id number] ? cc: Beatriz Ernst MD; Chang Buchanan [...] DD/ 0108 ? TD/TT: 09/11/24 0108 ? Administration Assistant: ? Procedure Note Gabby Daniels - 09/11/[address] [address] Ultrasound Report Signed Patient: Kevin Haynes [facility]#: [id number] 869 : 2Acct:[id number] Age/Sex: 84 / MADM Date: 09/10/24 Loc: HO.ED Attending Dr: Ordering Physician: Chang Buchanan MD Date of Service: 09/10/24 Procedure(s): US venous duplex LE BI Accession Number(s): [id number] cc: Beatriz Ernst MD; Chang Buchanan MD [...] in OV> 09/11/24108 DD/ 7 TD/TT: 09/11/24107 Administration Assistant: [facility] External Provider CV VASC ULAR PROCEDURES Edited Result - Final [facility] [address] [place] [phone] * (ABNORMAL) Urinalysis, Complete, with Reflex to Culture (09/10/2024 10:44 PM EST) Color Urine Yellow [facility] Appearance Urine Clear [facility] PH 6.0 5.0 - 9.0 [facility] Glucose Urine UA >=1000(A) Negative mg/dL [facility] Urine Blood Trace(A) Negative [facility] Specific [place] - Urine >=1.030(H) 1.005 - 1.025 [facility] Urine Protein Trace Neg-Trace mg/dL [facility] Urine Ketones 40 Negative mg/dL [facility] Nitrite Urine Negative Negative [facility] Leukocyte Esterase Urine Negative Negative [facility] RBC Urine 0-2 0 - 2 /HPF [facility] Urine WBC 0-5 0 - 5 /HPF [facility] Urine Squamous Epithelial Cell 3-5 0 - 2 /HPF [facility] Urine Bacteria None Seen None Seen [facility] Hyaline Casts, Urine 0-2 0 - 2 /LPF [facility] 09/10/2024 10:4 4 PM EST 09/10/2024 10:48 PM EST Narrative [facility] - 09/10/2024 10:56 PM EST Urine, Clean Catch us Generic External Data Provider LAB URINE ORDERAB LES Final Result Performing Organization Address City/State/[facility] Co de Phone Number [facility] [address] [place] [phone] [phone] * XR Chest 1 View (09/10/2024 10:19 PM EST) Anatomical Region Laterality Modality Chest Radiographic Arely ging 09/10/2024 10:1 9 PM EST Narrative 09/10/2024 10:21 PM EST ? [facility] ?[address] ?[place] [address] ?XRay Report ? Signed ? Patient: Kevin Haynes Jr ?MR#: [id number] ?? 869 ? : 1940 ?Acct:[id number] ? Age/Sex: 84 / M ?ADM Date: 09/10/24 ? Loc: HO.ED ? Attending Dr: ? Ordering Physician: Generic ED Physician ?? Date of Service: 09/10/24 ?? Procedure(s): XR chest 1V ?? Accession Number(s): [id number] ? cc: Beatriz Ernst MD; Generic ED [...] ? DD/ 18 ? TD/TT: 09/10/242218 ? Administration Assistant: ? Procedure Note Donkamarter, Image - 09/10/[address] [address] XRay Report Signed Patient: Kevin Haynes [facility]#: [id number] 869 : 2Acct:[id number] Age/Sex: 84 / MADM Date: 09/10/24 Loc: .ED Attending Dr: Ordering Physician: Generic ED Physician Date of Service: 09/10/24 Procedure(s): XR chest 1V Accession Number(s): [id number] cc: Beatriz Ernst MD; Generic ED Physician [...] in OV> 09/10/242219 DD/ 18 TD/TT: 09/10/242218 Administration Assistant: [facility] External Provider IMG XR PROCEDURES Final Result * Magnesium (09/10/2024 9:51 PM EST) Magnesium 2.3 1.6 - 2.6 mg/dL [facility] 09/10/2024 9:51 PM EST 09/10/2024 9:56 PM EST us Generic External Data Provider LAB BLOOD ORDERAB LES Final Result [facility] [address] [place] [address] [phone] * CT Abdomen w/ and w/o Contrast (07/25/2024 4:17 PM EST) Anatomical Region Laterality Modality Body, Abdomen Computed Tomogra phy 07/25/2024 4:17 PM EST Narrative 07/26/2024 8:14 AM EST ? [facility] ?[address] ?[place] [address] ? CT Scan Report ? Signed ? Patient: Kevin Haynes Jr ?MR#: [id number] ?? 869 ? : 1940 ?Acct:[id number] ? Age/Sex: 83 / M ?ADM Date: 07/25/24 ? Loc: HO.CT ? Attending Dr: Ang Yung MD ? Ordering Physician: Ang Yung MD ?? Date of Service: 07/25/24 ?? Procedure(s): CT abdomen wo/w IV con ?? Accession Number(s): [id number] ? cc: Beatriz Ernst MD; Ang Yung MD ? Report Number: ?? [id number]: Total DLP = ??798.00 mGy-cm ?? EXAMINATION: ?? CT ABDOMEN WITHOUT AND WITH CONTRAST ? CLINICAL INFORMATION: ?? Liver mass. ? COMPARISON: ?? CT dated November 28, 2022. ? TECHNIQUE: ?? Contiguous axial thin section helical images of the abdomen were ?? performed before and after the administration of ??85 mL of Omnipaque ?? 350 intravenous contrast. No reported immediate complication. The data ?? set was reformatted in the coronal and sagittal planes and reviewed on ?? an independent workstation. ? This CT examination was performed using dose optimization techniques as ?? appropriate, variously including the following: ?? *Automated exposure control ?? *Adjustment of mA and/or kV according to patient size (this includes ?? techniques or standardized protocols for targeted exams where dose is ?? matched to indication/reason for exam; i.e. extremities or head) ?? *Use of iterative reconstruction technique. ?? DLP: 798 mGy centimeter. ? FINDINGS: ? LUNG BASES: No acute airspace disease or gross pulmonary nodules in the ?? included lungs. Subcentimeter subpleural based groundglass nodules ?? right lung base. ? LIVER, GALLBLADDER, AND BILIARY TREE: ? Liver measures 11 cm in maximum length. Nodular surface. Enlarged ?? caudate lobe. ?? There is an irregularly-shaped, 9 cm, arterial and portal venous ?? heterogeneously enhancing mass centered in the entire left hepatic lobe. ?? There is an irregularly-shaped, 4 cm, partially calcified, arterial and ?? portal venous heterogeneously enhancing mass centered in the right ?? hepatic lobe. ? There are segmental narrowing of the left portal vein with diminished ?? newly absent IV contrast enhancement. ?? The main portal vein and main right portal vein are patent. ?? The hepatic veins and intrahepatic portion of the IVC are patent. ? There is a focal calcification in the gallbladder without distention. ?? No gallbladder wall thickening. There is a edema pattern of the ?? gallbladder wall. ?? No intrahepatic or extrahepatic biliary ductal dilatation. ? PANCREAS: Volume loss. No focal mass. No peripancreatic fluid ?? collection. No main pancreatic ductal dilatation. Decreased enhancement ?? of the head and uncinate process. ? SPLEEN: 13 cm. No focal mass. ? ADRENAL GLANDS AND KIDNEYS: ? No nodular lesions in the adrenal glands. ?? There are multifocal, different sizes, round and ovoid shaped ?? well-defined less than 2 cm fluid density lesions throughout the renal ?? parenchyma more numerous on the left kidney. The renal parenchyma ?? demonstrates normal enhancement pattern. No hydronephrosis in either ?? kidney. ? BOWEL LOOPS: ? Abundant stool within the large intestine. No intestinal obstruction ?? pattern. ?? No gross ascites. ?? No pneumoperitoneum. ?? Edema pattern in the omentum and mesentery. ? LYMPH NODES: No gross lymphadenopathy. ? VASCULAR: Mixed plaques throughout the abdominal aorta wall and the ?? iliac arteries without aneurysm or dissection. Calcified plaques at the ?? origin of the celiac trunk and main renal arteries. ?? Calcified plaques in the aortic valve. ?? Questionable prominent vessels at the paraesophageal gastroesophageal ?? junction. ? BONES: Multilevel thoracolumbar spondylosis. No acute fracture or ?? listhesis. Multilevel Schmorl nodes, more conspicuous at L3. ? CT/CT abdomen wo/w IV con ?? IMPRESSION: ?? Consider to hepatocellular carcinoma masses in the left and right ?? hepatic lobe in a patient with cirrhosis. ?? Cholelithiasis. ?? Bilateral renal cysts. ?? Atherosclerosis disease. ?? Calcified plaques, aortic valve. ?? No ascites. ? Fleischner guidelines were followed. ? Electronically signed by: ??Hayden Morales MD ??07/26/2024 08:11 AM ?? EST ? Dictated By: ?Hayden Lopez MD ? Signed By: ?<Electronically signed by Hayden Ignacio MD in OV> ? 07/26/24 0811 ? DD/ 1617 ? TD/TT: 07/25/24 1649 ? Administration Assistant: ? Procedure Note Jeremiah, Image - 07/26/[address] [address] [address] Scan Report Signed Patient: Kevin Haynes [facility]#: [id number] 869 : 2Acct:[id number] Age/Sex: 83 / MADM Date: 07/25/24 Loc: HO.CT Attending Dr: Ang Yung MD Ordering Physician: Ang Yung MD Date of Service: 07/25/24 Procedure(s): CT abdomen wo/w IV con Accession Number(s): [id number] cc: Beatriz Ernst MD; Ang Yung MD Report Number: [id number]: Total DLP = 798.00 mGy-cm EXAMINATION: CT ABDOMEN WITHOUT AND WITH CONTRAST CLINICAL INFORMATION: Liver mass. COMPARISON: CT dated November 28, 2022. TECHNIQUE: Contiguous axial thin section helical images of the abdomen were performed before and after the administration of 85 mL of Omnipaque 350 intravenous contrast. No reported immediate complication. The data set was reformatted in the coronal and sagittal planes and reviewed on an independent workstation. This CT examination was performed using dose optimization techniques as appropriate, variously including the following: *Automated exposure control *Adjustment of mA and/or kV according to patient size (this includes techniques or standardized protocols for targeted exams where dose is matched to indication/reason for exam; i.e. extremities or head) *Use of iterative reconstruction technique. DLP: 798 mGy centimeter. FINDINGS: LUNG BASES: No acute airspace disease or gross pulmonary nodules in the included lungs. Subcentimeter subpleural based groundglass nodules right lung base. LIVER, GALLBLADDER, AND BILIARY TREE: Liver measures 11 cm in maximum length. Nodular surface. Enlarged caudate lobe. There is an irregularly-shaped, 9 cm, arterial and portal venous heterogeneously enhancing mass centered in the entire left hepatic lobe. There is an irregularly-shaped, 4 cm, partially calcified, arterial and portal venous heterogeneously enhancing mass centered in the right hepatic lobe. There are segmental narrowing of the left portal vein with diminished newly absent IV contrast enhancement. The main portal vein and main right portal vein are patent. The hepatic veins and intrahepatic portion of the IVC are patent. There is a focal calcification in the gallbladder without distention. No gallbladder wall thickening. There is a edema pattern of the gallbladder wall. No intrahepatic or extrahepatic biliary ductal dilatation. PANCREAS: Volume loss. No focal mass. No peripancreatic fluid collection. No main pancreatic ductal dilatation. Decreased enhancement of the head and uncinate process. SPLEEN: 13 cm. No focal mass. ADRENAL GLANDS AND KIDNEYS: No nodular lesions in the adrenal glands. There are multifocal, different sizes, round and ovoid shaped well-defined less than 2 cm fluid density lesions throughout the renal parenchyma more numerous on the left kidney. The renal parenchyma demonstrates normal enhancement pattern. No hydronephrosis in either kidney. BOWEL LOOPS: Abundant stool within the large intestine. No intestinal obstruction pattern. No gross ascites. No pneumoperitoneum. Edema pattern in the omentum and mesentery. LYMPH NODES: No gross lymphadenopathy. VASCULAR: Mixed plaques throughout the abdominal aorta wall and the iliac arteries without aneurysm or dissection. Calcified plaques at the origin of the celiac trunk and main renal arteries. Calcified plaques in the aortic valve. Questionable prominent vessels at the paraesophageal gastroesophageal junction. BONES: Multilevel thoracolumbar spondylosis. No acute fracture or listhesis. Multilevel Schmorl nodes, more conspicuous at L3. CT/CT abdomen wo/w IV con IMPRESSION: Consider to hepatocellular carcinoma masses in the left and right hepatic lobe in a patient with cirrhosis. Cholelithiasis. Bilateral renal cysts. Atherosclerosis disease. Calcified plaques, aortic valve. No ascites. Fleischner guidelines were followed. Electronically signed by: Hayden Morales MD 07/26/2024 08:11 AM EST Dictated By: Hayden Lopez MD Signed By: <Electronically signed by Hayden Ignacio MDin OV> 07/26/24 0811 DD/ 1617 TD/TT: 07/25/24 1649 Administration Assistant: [facility] External Provider IMG CT PROCEDURES Final Result * POCT Creatinine GFR (07/25/2024 4:11 PM EST) POCT Creatinine 0.8 0.5 - 1.4 mg/dL [facility] GFR POC >60 [facility] Comment:Chronic Kidney Disea se: Estimated GFR < 60 mL/min/1.92b9Abgzwv Kidney Disease: Estimated GFR < 15 mL/min/1.73m2 07/25/2024 4:11 PM EST 07/26/2024 2:14 PM EST Narrative [facility] - 07/26/2024 2:15 PM EST [id number] Generic External Data Provider LAB POINT OF CARE TEST DOCKED DEVICE ORDERABLES Final Result [facility] [address] [place] [phone] * (ABNORMAL) Hemoglobin A1c (03/27/2024 10:24 AM EDT) Hemoglobin A1c 8.3(H) <6.0 % [facility] Comment:Hemoglobin A1C Refer ence Range Adults: 4.8 - 6.0 % Non diabetic: < 6.0 % Goal: < 7.0 %Additional Action Suggested: > 8.0 %Note: Hemoglobin A1c results are invalid for patients with abnormal amounts of HbF. Blood transfusions may impact the HbA1c concentration in the patient sample. Estimated Average Glucose 192 mg/dL [facility] Comment:eAG = Estimated ave rage glucose which is %A1C expressed asaverage glucose, using the formula of the J4Z-ZkdecdpLtwsess Glucose study (ADAG), Diabetes Care, Vol.31,#8,Feb. 2007 Blood Venous blood specimen / Unknown 03/27/2024 10:24 AM EDT 03/27/2024 1:44 PM EDT Beatriz Ernst MD LAB BLOOD ORDERABLES Final Re sult Performing Organization Address City/[facility]/ZIP Co de Phone Number [facility] [address] [place] [phone] * Albumin, Random Urine W/Creatinine (08/15/2023 11:50 AM EST) Creatinine, Urine 48.97 mg/dL [facility] Microalbumin Urine <5.0 mg/L [facility] Microalbum Creatinine Ratio Ur TNP <30 ug/mg cr [facility] Comment:Unable to calculate albumin/creatinine ratio due to lowmicroalbumin or creatinine result. Urine (Urine, Random) 08/15/2023 11:50 AM EST 08/15/2023 2:53 PM EST Beatriz Ernst MD LAB URINE ORDERABLES Final Re sult Performing Organization Address [facility]/ZIP Co de Phone Number [facility] [address] [place] [phone] from Last 3 Months or Most Recently Relevant to Health Maintenance Insurance - FLO - [employer] - [employer] Care Teams Fishing Instructor Relationship Specialty Start Date End Date Beatriz Ernst MD [address] [place] [phone] PCP - General Family Medicine 07/17/18
--- OUTSIDE RECORDS SUMMARY | 2024-09-11 20:05 | XMS_ITS | Encounter Summary ---
Author Organization [employer] Address [address] [facility] 7t [place] [address] Care Team Providers Care Career Services Assistant Name Role Phone Beatriz Ernst MD Primary Care Provider [phone] Reason for Visit * Reason Onset Date Comments Referral 07/18/2023 Encounter Details Date Type Department Care Team ([facility] st Contact Info) Description 07/18/2023 Telephone [facility] [address] [place], [place] [phone] Beatriz Ernst MD [address] [place], [place] [phone] Referral Social History Tobacco Use Types Packs/Day Years Used Date Smoking Tobacco: Never Passive Smoke Exposure: Never Smokeless Tobacco: Never Housing Stability Answer Date Recorded What is your housing situation today? I have ihsanadali gonsalez 05/19/[address] you [...] Telephone Encounter - Latosha Maxwell RN - 07/20/2023 2:06 PM EST Noted thank you. * Telephone Encounter - Latosha Maxwell RN - 07/18/2023 1:33 PM EST Please review message below and advise. PCP off and pt requesting an audiology referral for hearingaides. * Telephone Encounter - Jacinto Dawn - 07/18/2023 12:58 PM EST Tc from [facility] stating pt needs a referral for informatics nurse, pt wants to get evaluated for hearing aids. [facility] stated pt has had no luck finding a specialist or facility. [facility] recommended to contact daughter if any questions. Daughter phone: [facility] phone: [phone] ext [phone] documented in this encounter Plan of Treatment Not on file documented as of this encounter Visit Diagnoses Not on filedocumented in this encounter Care Teams Career Services Assistant Relationship Specialty Start Date End Date Beatriz Ernst MD [address] [place] [phone] PCP - General Family Medicine 07/17/18 documented as of this encounter
--- OUTSIDE RECORDS SUMMARY | 2024-09-11 20:05 | XMS_ITS | Encounter Summary ---
Author Organization [employer] Address [address] [facility] [address] [place] [address] Care Team Providers Care Outreach Rep Name Role Phone Beatriz Ernst MD Primary Care Provider [phone] Reason for Visit * Reason Onset Date Comments Medication Question 07/30/2024 Encounter Details Date Type Department Care Team ([facility] Contact Info) Description 07/30/2024 Telephone [facility] [address] [place] [address] Beatriz Ernst MD [address] [place] [phone] Medication Question Social History Tobacco Use Types [...] encounter Miscellaneous Notes * Telephone Encounter - Ese Mcmillan RN - 07/30/2024 1:36 PM EST Spoke with Lisa from [facility]. She states patient has reddened area on coccyx. 4 cm wide, 2.5 cm long.No open areas, area is blanchable. Requesting a protective barrier cream and a doughnut pillow for patient to sit on to relieve pressure off coccyx area. She stated if you send the prescriptions directly to [facility], they can help get item from supplier. Will route to provider to advise. * Telephone Encounter - Zully Odonnell - 07/30/2024 10:54 AM EST Tc from Lisa with [facility] stating pt has skin breakdown, she's requesting a med recommendation. Any questions contact: [phone] documented in this encounter Plan of Treatment Not on file documented as of this encounter Visit Diagnoses Not on filedocumented in this encounter Additional Health Concerns Assessment Noted Time PHQ-9 Depression Total Score: 1 09/12/19 24 11:43 AM EST documented as of this encounter Care Teams Outreach Rep Relationship Specialty Start Date End Date Beatriz Ernst MD [address] [place] [phone] PCP - General Family Medicine 07/17/18 documented as of this encounter
--- OUTSIDE RECORDS SUMMARY | 2024-09-11 20:05 | XMS_ITS | Encounter Summary ---
Author Organization [employer] Address [address] [facility] [address] [place] [address] Care Team Providers Care Garment Mender Name Role Phone Beatriz Ernst MD Primary Care Provider [phone] Reason for Visit * Reason Onset Date Comments Hospital Follow-up 08/15/2024 Encounter Details Date Type Department Care Team ([facility] Contact Info) Description 08/15/2024 Telephone [facility] [address] [place] [address] Beatriz Ernst MD [address] [place] [address] [phone] Hospital Follow-up Social History Tobacco Use Types Packs/Day Years [...] encounter Miscellaneous Notes * Telephone Encounter - Denton Ryan - 08/15/2024 10:09 AM EST Tc from pt requesting a HDF appt. Hospital: [facility] Date of admission: 08/13/2024 Discharge date: 08/14/2024 Diagnosed: Yeast infection and low heart rate *Send message to [facility] documented in this encounter Plan of Treatment Not on file documented as of this encounter Visit Diagnoses Not on filedocumented in this encounter Additional Health Concerns Assessment Noted Time PHQ-9 Depression Total Score: 1 09/12/19 24 11:43 AM EST documented as of this encounter Care Teams Garment Mender Relationship Specialty Start Date End Date Beatriz Ernst MD [address] [place] [phone] PCP - General Family Medicine 07/17/18 documented as of this encounter
--- OUTSIDE RECORDS SUMMARY | 2024-09-11 20:05 | XMS_ITS | Clinical Summary ---
Author Organization [facility] Address [address] [place] [address] Care Team Providers Care Online Advertising Director Name Role Phone Beatriz Ernst MD Primary Care Provider [phone] Allergies Active Allergy Reactions Criticality Noted Date Comments Atorvastatin 01/26/2012 Metformin 01/26/2012 Pioglitazone 01/26/2012 Medications Medication Sig Dispensed Refills Start Date End Date Status aspirin EC 81 MG tablet Take 1 tablet (81 mg total) by mouth daily. 0 Active rosuvastatin (CRESTOR) tablet 10 mg Take 1 tablet (10 mg total) by mouth daily. 0 Active lisinopril (PRINIVIL,ZESTRIL) tablet 10 mg Take 1 tablet (10 mg total) by mouth daily. 0 Active insulin glargine (LANTUS) injection 100 units/mL Inject under the skin every night at bedtime. 0 Active insulin aspart (NovoLOG FLEXPEN) injection 100 units/mL Inject under the skin. 0 Active Multiple Vitamins-Minerals (MULTIVITAMIN ADULT PO) Take by mouth daily. 0 Active Acetaminophen (TYLENOL 8 HOUR ARTHRITIS PAIN PO) Take by mouth. 0 Active CARVEDILOL PO Take by mouth. 0 Active empagliflozin (Jardiance) 10 MG tablet Take 1 tablet (10 mg total) by mouth daily. 0 Active senna-docusate (PERICOLACE) 8.6-50 MG Take 1 tablet by mouth daily. 0 Active vitamin B-12 (CYANOCOBALAMIN) 100 MCG tablet Take 0.5 tablets (50 mcg total) by mouth daily. 0 Active tamsulosin (FLOMAX) 0.4 MG CAPS Take 1 capsule (0.4 mg total) by mouth daily. 0 Active vitamin C (ASCORBIC ACID) 250 MG tablet Take 1 tablet (250 mg total) by mouth daily. 0 Active Active Problems Problem Noted Date Diagnosed Date Protein-calorie malnutrition 09/12/202305/2024 Benign prostatic hyperplasia 06/23/202205/2024 Recurrent anxiety 09/15/2021 09/25/2023 Hearing loss 12/13/2013 09/25/2023 Malignant lymphoma 08/23/2012 09/25/2023 Hypertension 01/26/2012 09/25/2023 Pure hypercholesterolemia 04/14/20112023 Diabetes mellitus 11/11/2010 09/25/2023 Overview: Last Assessment & Plan: Will send continuous glucose monitor. Contact dermatitis 08/31/2010 09/25/2023 Family History Medical History Relation Name Comments Hypertension Father Diabetes Mother Diabetes Sister Relation Name Status Comments Father Mother Sister Social History Tobacco Use Types Packs/Day Years Used Date Smoking Tobacco: Never Smokeless Tobacco: Never Alcohol Use Standard Drinks/Week Comments No 0 (1 standard drink = 0.6 oz pur e alcohol) Sex and Gender Information Value Date Recorded Sex Assigned at Male 09/14/2023 3:06 PM EST Gender Identity Not on file Sexual Orientation Not on file Job Start Date Occupation Industry Not on file Not on file Not on file Last Filed Vital Signs Vital Sign Reading Time Taken Comments Blood Pressure 115/35 01/23/2024 10:59 AM EDT Pulse 62 01/23/2024 10:59 AM EDT Temperature 36.9 ??C (98.5 ??F) 01/23/2024 10:59 AM E DT Respiratory Rate - - Oxygen Saturation 99% 01/23/2024 10:59 AM EDT Inhaled Oxygen Concentration - - Weight 55.3 kg (122 lb) 01/23/2024 10:59 AM EDT Height 172.7 cm (5' 8 ) 12/29/2023 10:45 AM EDT Body Mass Index 18.55 12/29/2023 10:45 AM EDT Plan of Treatment Health Maintenance Due Date Last Done Comments Depression Screening 1952 Preventative Health Evaluation 1959 Shingrix-Zoster Vaccine (1 of 2) 1960 Fall Risk Assessment 2006 RSV Adult > 60+ Yrs or (1 - 1-dose 75+ series) 2016 Pneumococcal Vaccine (2 of 2 - PPSV23 or PCV20) 06/10/2021 04/15/2021 COVID-19 Vaccine (6 - season) 2024 04/17/2023, 11/09/2021, 06/08/2021, Additional history exists Influenza Vaccine (#1) 2024 , 03/26/2022, 03/19/2021, Additional history exists DTap / Tdap / Td (2 - Td or Tdap) 10/20/2025 10/21/2015 Hepatitis B Vaccines Aged Out No long er eligible based on patient's age to complete this topic RSV Ped < 20 months Aged Out No longe r eligible based on patient's age to complete this topic Care Teams Online Advertising Director Relationship Specialty Start Date End Date Beatriz Ernst MD [address] [place] [phone] PCP - General Pediatrics 09/28/18
--- OUTSIDE RECORDS SUMMARY | 2024-09-11 20:05 | XMS_ITS | Patient Health Record ---
Author Organization [facility] Address [address] [place] [address] Care Team Providers Care Technical Expert Name Role Phone Beatriz Ernst Primary Care Provider Unavailab Dina Norris Unavailable [phone] Edin Manuel Unavailable [phone] Allergies No Known Allergies Reason For Referral No Information Medications Medication SIG (Take, Route, Frequency, Duration) Notes Start Date End Date Status Aspirin Low Dose Act latisha TRUEplus Lancets 33G Active Carvedilol 12.5 MG 1 tablet with food O ral once a day Active Doxycycline Monohydrate 100 MG 1 capsule Orally Once a day for 10 days 07/20/2022 Active FreeStyle Lite Test - In Vitro for 33 Active Ammonium Lactate 12 % 1 application to affected area Externally Twice a day to dry areas of skin on feet for 30 days 07/20/2022 Active Fluticasone Propionate 50 MCG/ACT Nasal for 60 Active ASO Ankle/Foot Stablizing AFO As directed Wear Daily for as needed 03/14/2024 Active FLUoxetine HCl Activ e SM Aspirin Adult Low Strength 81 MG Oral for 90 Not-Taking Multivitamin - 1 tablet Oral Once a day Active NovoLOG FlexPen 100 UNIT/ML Subcutaneous for 16 Active Lisinopril 10 MG 1 tablet Oral Once a day Active Loratadine 10 MG Oral for 30 A ctive Omeprazole 20 MG Oral for 30 A ctive Extra Depth Diabetic Shoes with 3 Pair Custom heat-molded multi-density innersoles for 1 year Dx: A ctive Rosuvastatin Calcium 20 MG 1 tablet Oral Once a day Act latisha Immunizations Vaccine Route Administration Date Status Comme nts COVID-19 Moderna Vaccine Unknown 03/27/2022 Administered 08/27/2020,06/08/21 09/28/2020, 2021 Influenza Unknown 03/17/2022 Administered Influenza Unknown 03/14/2024 Administered Social History Tobacco Use: Social History Observation Description Date Details (start date - stop date) Never Smoker NA - NA Tobacco Use/Smoking Question Answer Notes Are you a: nonsmoker Additional Findings: Tobacco Non-User Aggressive non-smoker Alcohol Screen Question Answer Notes Did you have a drink containing alcohol in the p ast year? No Points 0 Interpretation Negative Tobacco use other than smoking: Question Answer Notes Are you an other tobacco user? No Problems Problem Type SNOMED Code ICD Code Onset Dates Problem Status W/U Status Risk Notes Problem Ataxic gait (18332021) Ataxic gait (R26.0) Active confirmed Problem Polyneuropathy due to type 2 diabetes mellitus (470553452) Type 2 diabetes mellitus with diabetic polyneuropathy (E11.42) Active confirmed Problem 75699888 Essential hypertension (I10) Active confirmed Vital Signs Blood pressure diastolic 87 mm Hg 06/27/2024 Height 5 ft 8 in in 06/27/2024 Blood pressure systolic 127 mm Hg 06/27/2024 Weight 142 lbs 06/27/2024 BMI 21.59 kg/m2 06/27/2024 Procedures Procedure Date Ordered Date Performed Result Body Sit e 78772-IVSCHXN NAIL, 6 OR MORE 06/27/2024 N/A 93499-UKSF SKIN LESIONS, 2 TO 4 06/27/2024 N/A Encounters Encounter Location Date Provider Diagnosis [facility] [address] [address] 09/13/2023 Edin Manuel Type 1 diabetes mellitus with diabetic polyneuropathy E10.42 ; Pain in right toe(s) M79.674 ; Tinea unguium B35.1 ; Pain in left toe(s) M79.675 ; Ingrowing nail L60.0 and Ataxic gait R26.0 [facility] [address] 12/14/2023 Edin Manuel Type 1 diabetes mellitus with diabetic polyneuropathy E10.42 ; Pain in right toe(s) M79.674 ; Tinea unguium B35.1 ; Pain in left toe(s) M79.675 ; Ingrowing nail L60.0 and Ataxic gait R26.[address] [address] 03/14/2024 Edin Manuel Type 1 diabetes mellitus with diabetic polyneuropathy E10.42 ; Pain in right toe(s) M79.674 ; Tinea unguium B35.1 ; Pain in left toe(s) M79.675 ; Ingrowing nail L60.0 ; Ataxic gait R26.0 and Arthritis of left ankle M19.[address] [address] 06/27/2024 Dina Andrade Type 2 diabetes mellitus with diabetic polyneuropathy E11.42 and Tinea unguium B35.[address] [address] 03/13/2024 Edin Manuel Assessments Encounter Date Diagnosis (ICD Code) Assessment Notes Treatment Notes Treatment Clinical Notes Section Notes 09/13/2023 Type 1 diabetes mellitus with diabetic polyneuropathy (ICD-10 - E10.42) 12/14/2023 Type 1 diabetes mellitus with diabetic polyneuropathy (ICD-10 - E10.42) 03/14/2024 Type 1 diabetes mellitus with diabetic polyneuropathy (ICD-10 - E10.42) 06/27/2024 Type 2 diabetes mellitus with diabetic polyneuropathy (ICD-10 - E11.42) 06/27/2024 Tinea unguium (ICD-10 - B35.1) 03/14/2024 Pain in right toe(s) (ICD-10 - M79.674) 12/14/2023 Pain in right toe(s) (ICD-10 - M79.674) 09/13/2023 Pain in right toe(s) (ICD-10 - M79.674) 09/13/2023 Pain in left toe(s) (ICD-10 - M79.675) 09/13/2023 Tinea unguium (ICD-10 - B35.1) 12/14/2023 Tinea unguium (ICD-10 - B35.1) 03/14/2024 Pain in left toe(s) (ICD-10 - M79.675) 03/14/2024 Tinea unguium (ICD-10 - B35.1) 03/14/2024 Ingrowing nail (ICD-10 - L60.0) 12/14/2023 Pain in left toe(s) (ICD-10 - M79.675) 09/13/2023 Ingrowing nail (ICD-10 - L60.0) 09/13/2023 Ataxic gait (ICD-10 - R26.0) 12/14/2023 Ingrowing nail (ICD-10 - L60.0) 03/14/2024 Ataxic gait (ICD-10 - R26.0) 03/14/2024 Arthritis of left ankle (ICD-10 - M19.072) 12/14/2023 Ataxic gait (ICD-10 - R26.0) Plan Of Treatment Pending Test Test Name Order Date X ray : Foot, right 3V 12/16/2021 56250-JAGJIDG NAIL, 6 OR MORE 06/27/2024 19095-EFGL SKIN LESIONS, 2 TO 4 06/27/20 24 89258-BOFH SKIN LESIONS, 2 TO 4 11/12/19 21 14332-MQZD SKIN LESIONS, 2 TO 4 01/29/20 21 83649-KKTA SKIN LESIONS, 2 TO 4 05/05/20 21 45248-JTNP SKIN LESIONS, 2 TO 4 08/04/19 22 Next Appt Details Provider Name:Dina Bonilla kennedy, 11/06/2024 10:15:00 AM, [address] [place], [address], Insurance Providers Payer Name Payer Address Payer Phone Subscriber Number Group Number Insured Name Patient Relationship to Insured Coverage Start Date Coverage End Date [facility] [employer] Claims [address] [place] [address] [id number] Kevin Haynes Self - patient is the insured Medical (General) History Medical History History ICD Code Arthritis Cancer High blood pressure Chicken pox Transfusions type II diabetes Non-pressure 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
--- OUTSIDE RECORDS SUMMARY | 2024-09-11 20:05 | XMS_ITS ---
Author Organization [facility] Address [address] [place] [address] Care Team Providers Care Critical Care Educator Name Role Phone Beatriz Ernst Primary Care Provider UnavailDina Gomez Unavailable [phone] Allergies No Known Allergies REASON FOR VISIT At Risk Footcare Medications Medication SIG (Take, Route, Frequency, Duration) Notes Start Date End Date Status Aspirin Low Dose Act latisha Carvedilol 12.5 MG 1 tablet with food O ral once a day Active FreeStyle Lite Test - In Vitro for 33 Active Fluticasone Propionate 50 MCG/ACT Nasal for 60 Active FLUoxetine HCl Activ e Doxycycline Monohydrate 100 MG 1 capsule Orally Once a day for 10 days 07/20/2022 Active Ammonium Lactate 12 % 1 application to affected area Externally Twice a day to dry areas of skin on feet for 30 days 07/20/2022 Active ASO Ankle/Foot Stablizing AFO As directed Wear Daily for as needed 03/14/2024 Active SM Aspirin Adult Low Strength 81 MG Oral for 90 Not-Taking Extra Depth Diabetic Shoes with 3 Pair Custom heat-molded multi-density innersoles for 1 year Dx: A ctive TRUEplus Lancets 33G Active Lisinopril 10 MG 1 tablet Oral Once a day Active Loratadine 10 MG Oral for 30 A ctive Omeprazole 20 MG Oral for 30 A ctive Rosuvastatin Calcium 20 MG 1 tablet Oral Once a day Act latisha Multivitamin - 1 tablet Oral Once a day Active NovoLOG FlexPen 100 UNIT/ML Subcutaneous for 16 Active Social History Tobacco Use: Social History Observation [...] Problem Status W/U Status Risk Notes Problem 45510872 Essential hypertension (I10) Active confirmed Vital Signs Blood pressure systolic 127 mm Hg 06/27/20 24 Blood pressure diastolic 87 mm Hg 024 Height 5 ft 8 in in 06/27/2024 Weight 142 lbs 06/27/2024 BMI 21.59 kg/m2 06/27/2024 Procedures Procedure Date Ordered Date Performed Result Body Sit e 61501-DZBDVVQ NAIL, 6 OR MORE 06/27/2024 N/A 43329-UALA SKIN LESIONS, 2 TO 4 06/27/2024 N/A Encounters Encounter Location Date Provider Diagnosis [facility] [address] [address] 06/27/2024 Dina Zafar Type 2 diabetes mellitus with diabetic polyneuropathy E11.42 and Tinea unguium B35.1 Assessments Encounter Date Diagnosis (ICD Code) Assessment Notes Treatment Notes Treatment Clinical Notes Section Notes 06/27/2024 Type 2 diabetes mellitus with diabetic polyneuropathy (ICD-10 - E11.42) 06/27/2024 Tinea unguium (ICD-10 - B35.1) Plan Of Treatment Pending Test Test Name Order Date 48196-VRDUXUU NAIL, 6 OR MORE 06/27/2024 68187-HBRR SKIN LESIONS, 2 TO 4 06/27/20 24 Next Appt Details Follow Up: 3 Months, Reason: Provider Name:Dina benavides, 11/06/2024 10:15:00 AM, [address] [place] [address], [phone], Procedure Notes * Category Sub-Category Detail Notes Debride Nail 6-10 Nail debridement Due to the cl inical pathology outlined in the exam findings, performance of this nail treatment is medically necessary as its management by an unskilled/untrained nonprofessional would put this patients foot and overall health at risk. Therefore, debridement to affected nail(s), as described in exam ( TA, T1, T2, T3, T4, T5, T6, T7, T8, T9), was performed exclusively by the physician of record to reduce/remove overall nail length, girth, thickness, subungual debris, and necrotic tissue, by manual and/or electrical means through the use of a nail nipper and/or dremel-type pulp grinder feeder, to a more viable healthy nail plate or bed tissue 6-10 nails in total. Silver nitrate was used for any petechial bleeding as necessary. Definitive antifungal treatment options, both pharmaceutical and surgical, have been reviewed and discussed with the patient. The patient solely prefers the use of intermittent/as needed professional debridement services for their nail condition and understands the need for additional periodic treatments to maintain effectiveness in symptomatic relief - 85033 Keratoma Treatment Parring or Cutting o f Benign Hyperkeratotic Lesion(s) (-56) 2-4 Lesions - Due to the at risk nature of the patients medical condition as documented in the exam findings, performance of this keratoderma treatment is medically necessary as its management by an unskilled/untrained nonprofessional would put this patients foot and overall health at risk. Therefore, the benign hyperkeratotic lesions, (2) in total, locations as stated and described in the exam ( Plantar heels B/L ), were pared, and/or cut utilizing a sterile 15 blade, tissue nippers, and/or power dremel instrumentation by the physician of record - 28315, Q8 Progress Notes * Kevin SIDHU ADOB:1940 (83 yo M)Acc No.[id number]:06/27/2024 Progress Note Patient:?Kevin SIDHU Provider:?Dina Zafar DPM :1940???Age:83 Y???Sex:Male Bj e:06/27/2024 Address:[address] [place], [place] [id number] Pcp:Beatriz Ernst Subjective: * Chief Complaints: * ???At Risk Footcare * HPI: ???At Risk footcare:?Pt States Last PCP Visit:?Date?05/17/2024 * ROS:?General/Constitutional:?Nausea?denies.?Vomiting?denies.?Hunger Thirst?denies.?Loss appetite?denies.?Chills?denies.?Fatigue?denies.?Fever?denies.?Night Sweats?denies.?Unexplained weight loss?denies.?Unexplained weight gain?denies.?HEENTM:?Dentures?admits.?Dizziness?denies.?Glasses/contacts?admits.?Retinopathy?de nies.?Blurred/double vision?denies.?TMJ?denies.?Discharge/drainage?denies.?Implants?denies.?Sore throat?denies.?Dental implants?admits.?Hard of hearing ?admits.?Difficulty chewing/swallowing/speaking?denies.?Nose bleeds?denies.?Sore mouth?denies.?Respiratory:?On Oxygen?denies.?Pneumonia/pleurisy?denies.?Bronchitis?denies.?Emphysema?denies.?C oughing?denies.?Cough blood?denies.?Shortness of breath?denies.?Wheezing?denies.?Cardiovascular:?Pacemaker?denies.?MVP?denies.?WPW?denies.?CHF?denies.?Heart attack?denies.?Septal defect?denies.?Rapid beat?denies.?Chest pain ?denies.?Atrial Fib.?denies.?Murmur/Palpitations?denies.?Gastrointestinal:?Hemorrhoids?denies.?Stomach/Abdominal pain?denies.?Dark blood stool?denies.?Irritable bowel ?denies.?Constipation?denies.?Diarrhea?denies.?Hematology:?Swelling?denies.?Clots?denies.?Varicose Veins?denies.?Bruising?denies.?Bleeding problem?denies.?Genitourinary:?Blood urine?denies.?Frequent/Painfu/urination/bladder control?denies.?Kidney stones?denies.?Infection (UTI)?denies.?Nephropathy?denies.?sex trans dis (STD)?denies.?Prostate?denies.?Musculoskeletal:?Hammertoes?denies.?Bunions?denies.?Back Pain?denies.?Muscle Cramps/ Resting?denies.?Muscle cramps / walking?denies.?Generalized aches and pains?denies.?Weakness?denies.?Integ.:?Guzman?denies.?Scars?denies.?Corns/calluses?denies.?Ingrown nails?denies.?Painful nails?denies.?Open Sores?denies.?Rashes?denies.?Neurologic:?Difficulty sleeping?denies.?Brain disorder?denies.?Numbness?denies.?Balance trouble?denies.?Confusion?denies.?Fainting/blackouts?denies.?Tingling?denies.?Tr emors?denies.? * Medical History:? * Surgical History:?cystectomy portacath placement cataract surgery 2020 * Hospitalization/Major Diagno stic Procedure:?No Hospitalization History. * Family History:?Mother: dece ased, diagnosed with Diabetic - NIDDM, Unspecified essential hypertension.?Father: , diagnosed with Family history of arthritis, Unspecified essential hypertension, Unspecified heart disease, Unspecified cerebral artery occlusion with cerebral infarction.? * Social History:?Tobacco Use:?Tobacco Use/Smoking?Are you a:?nonsmoker ?Additional Findings: Tobacco Non-User?Aggressive non-smoker ?Tobacco use other than smoking?Are you an other tobacco user??No ???Drugs/Alcohol:?Drugs?Have you used drugs other than those for medical reasons in the past 12 months??No ?Alcohol Screen?Did you have a drink containing alcohol in the past year??No ?Points?0 ?Interpretation?Negative ???Miscellaneous:?Caffeine: yes, frequency:, 1 cups per day. ?Children: yes. ?Exercise: yes, Walk occasionally, Confucianism. ?Marital status: single. 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 * Medications:?TakingExtra Dep th Diabetic Shoes with 3 Pair Custom heat-molded multi-density innersoles for 1 year Dx: Aspirin Low Dose Carvedilol 12.5 MG Tablet 1 tablet with food Oral once a day FreeStyle Lite Test - Strip In Vitro Fluticasone Propionate 50 MCG/ACT Suspension Nasal FLUoxetine HCl Multivitamin - Tablet 1 tablet Oral Once a day NovoLOG FlexPen 100 UNIT/ML Solution Pen-injector Subcutaneous Lisinopril 10 MG Tablet 1 tablet Oral Once a day Loratadine 10 MG Tablet Oral Omeprazole 20 MG Capsule Delayed Release Oral Rosuvastatin Calcium 20 MG Tablet 1 tablet Oral Once a day TRUEplus Lancets 33G Doxycycline Monohydrate 100 MG Capsule 1 capsule Orally Once a day Ammonium Lactate 12 % Cream 1 application to affected area Externally Twice a day to dry areas of skin on feet ASO Ankle/Foot Stablizing AFO As directed Wear Daily Taking Extra Depth Diabetic Shoes with 3 Pair Custom heat- molded multi-density innersoles for 1 year Dx: Taking Aspirin Low Dose Taking Carvedilol 12.5 MG Tablet 1 tablet with food Oral once a day Taking FreeStyle Lite Test - Strip In Vitro Taking Fluticasone Propionate 50 MCG/ACT Suspension Nasal Taking FLUoxetine HCl Taking Multivitamin - Tablet 1 tablet Oral Once a day Taking NovoLOG FlexPen 100 UNIT/ML Solution Pen-injector Subcutaneous Taking Lisinopril 10 MG Tablet 1 tablet Oral Once a day Taking Loratadine 10 MG Tablet Oral Taking Omeprazole 20 MG Capsule Delayed Release Oral Taking Rosuvastatin Calcium 20 MG Tablet 1 tablet Oral Once a day Taking TRUEplus Lancets 33G Taking Doxycycline Monohydrate 100 MG Capsule 1 capsule Orally Once a day Taking Ammonium Lactate 12 % Cream 1 application to affected area Externally Twice a day to dry areas of skin on feet Taking ASO Ankle/Foot Stablizing AFO As directed Wear Daily Not-Taking/PRNSM Aspirin Adult Low Strength 81 MG Tablet Delayed Release Oral Medication List reviewed and reconciled with the patientNot-Taking/PRN SM Aspirin Adult Low Strength 81 MG Tablet Delayed Release Oral Medication List reviewed and reconciled with the patient * Allergies:?N.K.D.A.yes[Aller gies Verified] Objective: * Vitals:?Ht: 5 ft 8 in, Wt: 1 42, BMI: 21.59, Shoe size: 8.5, BP: 127/87 mm Hg, BS: 130, Wt-k.41 kg. * Examination: ???Ophthalmology Referral: ?DIABETES EYE EXAM?Diabetic Retinopathy Screening:?Yes 10/16/2023 ?Findings of Diabetic Eye Exam:?no retinopathy?Neurological: ?SENSORY:? Neurological exam demonstrates, reduced light touch sensation, reduced sharp/dull pin prick discrimination , B/L, 5.07 monofilament test performed at plantar aspects of 5 varied sites per foot shows sensation, reduced , B/L.?Nails: ?NAILS are:?Elongated, overgrown, dystrophic, lytic, greater than 3mm thick, discolored and friable with crumbly malodorous subungual debris, TA, T1, T2, T3, T4, T5, T6, T7, T8, T9.?Dermatologic: ?SKIN FINDINGS:?Skin exam reveals Keratotic lesion(s) located at,, Plantar Heel(s), B/L.?Vascular: ?DP PULSES(B):?1/4, B/L.?PT PULSES(B):?0/4, B/L.?CAPILLARY FILL TIME:?4 secs. per digit.?TEMPERTURE GRADIENT(C):?decreased, cool to cool, proximal to distal, B/L.?PIGMENTATION:?brawny, B/L.?Orthopedic: ?MUSCLE STRENGTH:?5/5 all groups in a symmetrical fashion, B/L.?General Examination: ?GENERAL APPEARANCE:?Reveals a pleasant, alert, well nourished, well- developed, well hydrated individual, who demonstrates proper attention to hygiene/body habitus, and is in no acute distress, Pt serves as own historian for office visit today.?ORIENTED:?person, place, and time.? Assessment: * Assessment: 1.?Type 2 diabetes mellitus with diabetic polyneuropathy - E11.42 (Primary)???2.?Tinea unguium - B35.1??? Plan: * Treatment: * Procedures:?Debride Nail 6-10:?Nail debridement?Due to the clinical pathology outlined in the exam findings, performance of this nail treatment is medically necessary as its management by an unskilled/untrained nonprofessional would put this patients foot and overall health at risk. Therefore, debridement to affected nail(s), as described in exam ( TA, T1, T2, T3, T4, T5, T6, T7, T8, T9), was performed exclusively by the physician of record to reduce/remove overall nail length, girth, thickness, subungual debris, and necrotic tissue, by manual and/or electrical means through the use of a nail nipper and/or dremel-type pulp grinder feeder, to a more viable healthy nail plate or bed tissue 6- 10 nails in total. Silver nitrate was used for any petechial bleeding as necessary. Definitive antifungal treatment options, both pharmaceutical and surgical, have been reviewed and discussed with the patient. The patient solely prefers the use of intermittent/as needed professional debridement services for their nail condition and understands the need for additional periodic treatments to maintain effectiveness in symptomatic relief - 12197.?Keratoma Treatment:?Parring or Cutting of Benign Hyperkeratotic Lesion(s)?(-56) 2-4 Lesions - Due to the at risk nature of the patients medical condition as documented in the exam findings, performance of this keratoderma treatment is medically necessary as its management by an unskilled/untrained nonprofessional would put this patients foot and overall health at risk. Therefore, the benign hyperkeratotic lesions, (2) in total, locations as stated and described in the exam ( Plantar heels B/L ), were pared, and/or cut utilizing a sterile 15 blade, tissue nippers, and/or power dremel instrumentation by the physician of record - 94519, Q8.? * Procedure Codes:?47347 DEBRI DE NAIL, 6 OR MORE, Modifiers: XS 93320 TRIM SKIN LESIONS, 2 TO 4, Modifiers: XS , Q8 * Preventive Medicine:? ??Screening/Special Tests:?Fall Risk?Assessment:?Performed ?Screening:?No falls in the past year * Follow Up:?3 Months * Images: * Sign off status: Completed true * Provider:?Dina Zafar DPM Date:?1 2023 Generated for Pankaj jin/Boone/Juan Jose on:?09/11/2024 08:04 PM EST History and Physical Notes * HPI (History of Present Illness) Category Sub-Category Detail Notes Category Not es At Risk footcare Pt States Last PCP Visit: Date: Examination Category Sub-Category Detail Notes Category Not es Neurological SENSORY: Neurological exa m demonstrates, reduced light touch sensation, reduced sharp/dull pin prick discrimination , B/L, 5.07 monofilament test performed at plantar aspects of 5 varied sites per foot shows sensation, reduced , B/L Dermatologic SKIN FINDINGS: Skin exam reveal s Keratotic lesion(s) located at,, Plantar Heel(s), B/L Orthopedic MUSCLE STRENGTH: 5/5 all groups in a symmetrical fashion, B/L General Examination GENERAL APPEARANCE: Reveals a pleasant, alert, well nourished, well-developed, well hydrated individual, who demonstrates proper attention to hygiene/body habitus, and is in no acute distress, Pt serves as own historian for office visit today ORIENTED: person, place, and t amy Ophthalmology Referral DIABETES EYE EXAM Diabeti c Retinopathy Screening:: Yes 10/16/2023 Findings of Diabetic Eye Exam:: no retin opathy Vascular DP PULSES (B): 1/4, B/L PT PULSES (B): 0/4, B/L CAPILLARY FILL TIME: 4 secs. per digit TEMPERTURE GRADIENT (C): decreased, cool to cool, proximal to distal, B/L PIGMENTATION: brawny, B/L Nails NAILS are: Elongated, overg rown, dystrophic, lytic, greater than 3mm thick, discolored and friable with crumbly malodorous subungual debris, TA, T1, T2, T3, T4, T5, T6, T7, T8, T9
--- OUTSIDE RECORDS SUMMARY | 2024-09-11 20:05 | XMS_ITS ---
Author Organization [facility] Address [address] [place] [address] Care Team Providers Care 21 Dealer Name Role Phone JemalBarbara freirea Primary Care Provider Unavailab Dina Norris Unavailable [phone] Edin Manuel Unavailable [phone] REASON FOR VISIT Fee Encounters Encounter Location Date Provider Diagnosis [address] [address] 03/13/2024 Edin Manuel Plan Of Treatment Next Appt Details Provider Name:Dina benavides, 11/06/2024 10:15:00 AM, [address] [place] [address], [phone], Progress Notes * Kevin SIDHU ADOB:1940 (83 yo M)Acc No.[id number]:03/13/2024 Patient:?Kevin Sidhu :1940???Age:83 Y???Sex:Male Address:[address] [place] [address], [place], [address] * true * Date:? Generated for Printi ng/Famalag/eTransmitting on:?09/11/2024 08:04 PM EST
--- OUTSIDE RECORDS SUMMARY | 2024-09-11 20:05 | XMS_ITS | Encounter Summary ---
Author Organization [employer] Address [address] [facility] [address] [place] [address] Care Team Providers Care Investor Relations Director Name Role Phone Beatriz Ernst MD Primary Care Provider [phone] Encounter Details Date Type Department Care Team ([facility] st Contact Info) Description 08/21/2023 Orders Only [facility] [address] [place], [place] [phone] Beatriz Ernst MD [address] [place], [place] [phone] Social History Tobacco Use Types Packs/Day Years [...] on filedocumented in this encounter Care Teams Investor Relations Director Relationship Specialty Start Date End Date Beatriz Ernst MD [address] [place] [id number] PCP - General Family Medicine 07/17/18 documented as of this encounter
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
--- OUTSIDE RECORDS SUMMARY | 2024-09-11 20:05 | XMS_ITS | Encounter Summary ---
Author Organization [employer] Address [address] [facility] [address] [place] [address] Care Team Providers Care Library Clerical Assistant Name Role Phone Beatriz Ernst MD Primary Care Provider [phone] Reason for Visit * Reason Comments Transition Of Care (Tcm) HDF unscheduled . ED visit. Encounter Details Date Type Department Care Team ([facility] st Contact Info) Description 08/15/2024 Patient Outreach [facility] CHC MED & PEDS [address] [place], [place] [phone] Beatriz Ernst MD [address] [place], [place] [phone] Transition Of Care (Tcm) (HDF unscheduled. ED visit. ) Social History Tobacco Use Types Packs/Day Years [...] as of this encounter Miscellaneous Notes * Significant Event - Jennifer Hernandez - 08/15/2024 10:53 AM EST 08/15/24 1047 Hospital Discharges and Admission for [facility] Type of Visit Hospital Admission Date of Admission/Visit 08/13/24 Date of Discharge 08/14/24 Facility [facility] Diagnosis Yeast infetion, low heart rate Disposition Discharged Home Follow-Up Actions Follow-Up Needed Provider appointment Initial Contact Date 08/15/24 Patient was seen at [facility] as an ED visit. Please follow up with patient. CC scanned ED note into patient's chart. documented in this encounter Plan of Treatment Not on file documented as of this encounter Visit Diagnoses Not on filedocumented in this encounter Additional Health Concerns Assessment Noted Time PHQ-9 Depression Total Score: 1 09/12/19 24 11:43 AM EST documented as of this encounter Care Teams Library Clerical Assistant Relationship Specialty Start Date End Date Beatriz Ernst MD [address] [place] [address] PCP - General Family Medicine 07/17/18 documented as of this encounter
--- OUTSIDE RECORDS SUMMARY | 2024-09-11 20:05 | XMS_ITS | Encounter Summary ---
Author Organization [employer] Address [address] [place] [address] Care Team Providers Care Wrapping Machine Helper Name Role Phone Beatriz Ernst MD Primary Care Provider [phone] Reason for Referral * Imaging (Routine) - Canceled Specialty Diagnoses / Procedures Referred By Johanne mora Referred To Contact Radiology Diagnoses Cancer, hepatocellular (CMS/HCC) Procedures PET CT Skull to Mid Thigh Initial Evelia Han DO [address] [place] [address] Phone: tel: fax: [facility] Referral ID Status Reason Start Date Expiration Date V isits Requested Visits Authorized [id number] Canceled 08/13/2024 08/13/2025 1 1 Encounter Details Date Type Department Care Team (Late st Contact Info) Description 08/13/[address] [facility] Hematology Oncology [address] [place] [phone] Evelia Han DO [address] [place] [address] Social History Tobacco Use Types Packs/Day Years Used Date Smoking Tobacco: Never Assessed Sex and Gender Information Value Date Recorded Sex Assigned at Male 05/31/2024 12:12 PM EST Legal Sex Male 2:16 AM EST Gender Identity Male 05/31/2024 12:12 PM EST Sexual Orientation Straight 05/31/2024 12 :12 PM EST documented as of this encounter Progress Notes * Jerrica Matos - 08/16/2024 8:13 AM EST REFERRAL SENT * Davina Lindo MA - 08/14/2024 3:00 PM EST After discussion with pt daughter Ellie as well as Dr. Han, it has been decided to refer [facility] Oncology. Pt has had recent imaging at [facility] and was seen in the ER there yesterday 08/13. Pt has fully expressed his wish to transfer care over there. Jerrica- can you please refer pt to [facility] Oncology dept? * Jerrica Matos - 08/14/2024 9:53 AM EST Message from Miriam at [facility] PET scan dept: I spoke with Kevin's daughter about booking the PET scan. She explained that the last time he was here he had a very traumatic experience and is not eager to come back to [facility]. I went over the whole PET scan process with her and went over what we will do differently here in PET to prevent another traumatic visit. She is going to call your office for clarification on a couple of things and to talkabout the PET scan. As of right now he is not booked. We left it that she would call me back after talking with you and with him. * Davina Lindo MA - 08/13/2024 3:58 PM EST Spoke to pt daughter Ellie at length. She expressed during our phone call that pt is highly anxious to come to [facility]. She states pt had a bad experience while having CT performed. Pt does not wish to come to this facility after this event. Pt daughter also states Dr. Yung was made awareof this, therefore ordered CT to be done at [facility] and pt had a positive experience . Pt daughter feels pt will only get testing performed at [facility] and fears it will be very difficult to get pt to come to [facility]. Dr. Han- can pt be referred to Medical Oncology at [facility] given situation? * Saira Metzger - 08/13/2024 3:41 PM EST Daughter called to clarify what's going on as she was unaware of petscan until she received a call and would like to discuss with you first, also questions as his proxy how much she actually has to tell him due to concern for mental status. Please call her at [phone] * Evelia Han DO - 08/13/2024 8:31 AM EST Discussed case with Dr Yung on 08/01 He has missed three appts with me They are now unable to do the ablation tumor has grown Sooner appt made for patient on 08/16 Please let daughter know I would like to get PET scan here. Also I have cancellation tomorrow 845 am would they like to take it documented in this encounter Plan of Treatment Scheduled Orders Name Type Priority Associated Diagnoses Orde r Schedule PET CT Skull to Mid Thigh Initial Imaging Routine Cancer, hepatocellular (CMS/HCC) Expected: 08/13/2024, Expires: 08/13/2025 documented as of this encounter Visit Diagnoses Diagnosis Cancer, hepatocellular (CMS/HCC)- Primary Malignant neoplasm of liver, primary documented in this encounter Care Teams Wrapping Machine Helper Relationship Specialty Start Date End Date Beatriz Ernst MD [address] [place] [address] PCP - General Pediatrics 09/28/18 documented as of this encounter
--- OUTSIDE RECORDS SUMMARY | 2024-09-11 20:05 | XMS_ITS | Encounter Summary ---
Author Organization [employer] Address [address] [facility] [address] [place] [address] Care Team Providers Care Collections Associate Name Role Phone Beatriz Ernst MD Primary Care Provider [phone] Encounter Details Date Type Department Care Team ([facility] st Contact Info) Description 07/20/2023 Orders Only [facility] CHC MED & PEDS [address] [place], [place] [phone] Tono Fry MD [address] [place] [address] Mixed conductive and sensorineural hearing loss of both ears (Primary Dx) Social History Tobacco Use Types Packs/Day Years [...] as of this encounter Visit Diagnoses Diagnosis Mixed conductive and sensorineural hearing loss of both ears- Primary documented in this encounter Care Teams Collections Associate Relationship Specialty Start Date End Date Beatriz Ernst MD [address] [place] [address] PCP - General Family Medicine 07/17/18 documented as of this encounter
--- OUTSIDE RECORDS SUMMARY | 2024-09-11 20:05 | XMS_ITS | Encounter Summary ---
Author Organization [email or web address] Address [address] [facility] [address] [place] [address] Care Team Providers Care Air Transportation Provider Name Role Phone Beatriz Ernst MD Primary Care Provider [phone] Reason for Visit * Reason Onset Date Comments Medication Question 08/15/2024 Encounter Details Date Type Department Care Team ([facility] Contact Info) Description 08/15/2024 Telephone [facility] MEDICINE [address] [place] [address] Beatriz Ernst MD [address] [place] [address] Medication Question Social History Tobacco Use Types [...] Telephone Encounter - Ese Mcmillan RN - 08/15/2024 2:55 PM EST TC to patients daughter. Detailed message left. Instructed to call with any questions or concerns. * Telephone Encounter - Ese Mcmillan RN - 08/15/2024 11:58 AM EST Patient was admitted to [facility] 08/13/24 for bradycardia and hypotension. Per daughter, heart rate was in the 40's. Decision was made to keep patient overnight for observation. Upon discharge, daughter was told to continue medications as before, and was also told to not take the carvedilol. Routing to provider for clarification. Could you please clarify if you would like patient to continue carvedilol 12.5 mg? * Telephone Encounter - Denton Davis - 08/15/2024 10:15 AM EST Tc from Radha in [facility] regarding a medication this pt was on for Blood pressure and she states that pt was in the ER and that the provider from [facility] crossed off the medication because the provider stated he did not need it. Radha states to call daughter in regards to the medication below. carvedilol (Coreg) 12.5 MG tablet [phone] (Daughter) documented in this encounter Plan of Treatment Not on file documented as of this encounter Visit Diagnoses Not on filedocumented in this encounter Additional Health Concerns Assessment Noted Time PHQ-9 Depression Total Score: 1 09/12/19 24 11:43 AM EST documented as of this encounter Care Teams Air Transportation Provider Relationship Specialty Start Date End Date Beatriz Ernst MD [address] [place] [address] PCP - General Family Medicine 07/17/18 documented as of this encounter
--- OUTSIDE RECORDS SUMMARY | 2024-09-11 20:06 | XMS_ITS | Encounter Summary ---
Author Organization [employer] Address [address] [facility] [address] [place] [address] Care Team Providers Care Zoning Engineer Name Role Phone Beatriz Ernst MD Primary Care Provider [phone] Encounter Details Date Type Department Care Team ([facility] Contact Info) Description 01/23/2024 Orders Only [facility] [address] [place] [address] Provider, MD Josr Social History Tobacco Use [...] Procedure Name Priority Date/Time Associated Diagnosis Comments CT CHEST W CONTRAST Routine 01/17/2024 9:55 AM EDT documented in this encounter Results * CT Chest w/ Contrast (01/17/2024 9:55 AM EDT) Anatomical Region Laterality Modality Body, Chest Computed Tomogra phy us Historical Provider MD RIVAS CT PROCEDURES Final R esult documented in this encounter Visit Diagnoses Not on filedocumented in this encounter Additional Health Concerns Assessment Noted Time PHQ-9 Depression Total Score: 1 09/12/19 24 11:43 AM EST documented as of this encounter Care Teams Zoning Engineer Relationship Specialty Start Date End Date Beatrzi Ernst MD [address] [place] [address] PCP - General Family Medicine 07/17/18 documented as of this encounter
--- OUTSIDE RECORDS SUMMARY | 2024-09-11 20:06 | XMS_ITS | Encounter Summary ---
Author Organization [employer] Address [address] [facility] [address] [place] [address] Care Team Providers Care Leather Softener Name Role Phone Beatriz Ernst MD Primary Care Provider [phone] Reason for Visit * Reason Comments Med Refill Encounter Details Date Type Department Care Team ([facility] Contact Info) Description 11/14/2023 Refill [facility] CHC MED & PEDS [address] [place], [place] [phone] Beatriz Ernst MD [address] [place] [address] Primary hypertension Social History Tobacco Use Types Packs/Day Years [...] as of this encounter Visit Diagnoses Diagnosis Primary hypertension Unspecified essential hypertension documented in this encounter Additional Health Concerns Assessment Noted Time PHQ-9 Depression Total Score: 1 09/12/19 24 11:43 AM EST documented as of this encounter Care Teams Leather Softener Relationship Specialty Start Date End Date Beatriz Ernst MD [address] [place] [address] PCP - General Family Medicine 07/17/18 documented as of this encounter
--- OUTSIDE RECORDS SUMMARY | 2024-09-11 20:06 | XMS_ITS | Encounter Summary ---
Author Organization [employer] Address [address] [facility] 7t [place] [address] Care Team Providers Care Corridor Redevelopment Manager Name Role Phone Beatriz Ernst MD Primary Care Provider [phone] Reason for Visit * Reason Comments Med Refill Encounter Details Date Type Department Care Team ([facility] Contact Info) Description 11/14/2023 Refill [facility] PEDS [address] [place], [place] [id number] Beatriz Ernst MD [address] [place] [address] Primary hypertension Social History Tobacco Use Types [...] documented as of this encounter Care Teams Corridor Redevelopment Manager Relationship Specialty Start Date End Date Beatriz Ernst MD [address] [place] [id number] PCP - General Family Medicine 07/17/18 documented as of this encounter
--- OUTSIDE RECORDS SUMMARY | 2024-09-11 20:06 | XMS_ITS | Encounter Summary ---
Author Organization [employer] Address [address] [facility] 7t [place] [address] Care Team Providers Care Inspector Handbag Frames Name Role Phone Beatriz Ernst MD Primary Care Provider [phone] Reason for Visit * Reason Onset Date Comments Created in error 01/26/2024 Encounter Details Date Type Department Care Team ([facility] Contact Info) Description 01/26/2024 Telephone [facility] [address] [place] [address] Beatriz Ernst MD [address] [place] [id number] Created in error Social History Tobacco Use Types Packs/Day Years [...] documented as of this encounter Care Teams Inspector Handbag Frames Relationship Specialty Start Date End Date Beatriz Ernst MD [address] [place] [id number] PCP - General Family Medicine 07/17/18 documented as of this encounter
--- OUTSIDE RECORDS SUMMARY | 2024-09-11 20:06 | XMS_ITS | Encounter Summary ---
Author Organization [employer] Address [address] [facility] 7t [place] [address] Care Team Providers Care Substation Operator Transforming Name Role Phone Beatriz Ernst MD Primary Care Provider [phone] Reason for Visit * Reason Onset Date Comments Medication Question 01/04/2024 Encounter Details Date Type Department Care Team ([facility] Contact Info) Description 01/04/2024 Telephone [facility] [address] [place] [address] Beatriz Ernst MD [address] [place] [address] Medication Question Social History Tobacco Use Types [...] encounter Miscellaneous Notes * Telephone Encounter - Ronny Byrd - 01/04/2024 12:19 PM EDT Tc from Pharmacy calling to request a change for TRUEplus Lancets 33G misc to freestlye Lancets documented in this encounter Plan of Treatment Not on file documented as of this encounter Visit Diagnoses Not on filedocumented in this encounter Additional Health Concerns Assessment Noted Time PHQ-9 Depression Total Score: 1 09/12/19 24 11:43 AM EST documented as of this encounter Care Teams Substation Operator Transforming Relationship Specialty Start Date End Date Beatriz Ernst MD [address] [place] [address] PCP - General Family Medicine 07/17/18 documented as of this encounter
--- OUTSIDE RECORDS SUMMARY | 2024-09-11 20:06 | XMS_ITS | Encounter Summary ---
Author Organization [employer] Address [address] [facility] 7t [place] [address] Care Team Providers Care Operations Mgr Name Role Phone Beatriz Ernst MD Primary Care Provider [phone] Reason for Visit * Reason Onset Date Comments Medication Question 01/02/2024 Encounter Details Date Type Department Care Team ([facility] st Contact Info) Description 01/02/2024 Refill [facility] [address] [place] [address] Beatriz Ernst MD [address] [place] [address] Type 2 diabetes mellitus without complication, with long-term current use of insulin ([facility]) Social History Tobacco Use Types Packs/Day Years [...] encounter Miscellaneous Notes * Telephone Encounter - Jacinto Dawn - 01/02/2024 11:31 AM EDT Tc from [facility] pharmacy requesting for a new script for glucose blood (FREESTYLE LITE) test strip to be sent to them instead of the [facility] pharmacy. If any questions you can contact [facility] at [phone]. documented in this encounter Plan of Treatment Not on file documented as of this encounter Visit Diagnoses Diagnosis Type 2 diabetes mellitus without complication, with long-term current use of insulin ([facility]) documented in this encounter Additional Health Concerns Assessment Noted Time PHQ-9 Depression Total Score: 1 09/12/19 24 11:43 AM EST documented as of this encounter Care Teams Operations Mgr Relationship Specialty Start Date End Date Beatriz Ernst MD [address] [place] [id number] PCP - General Family Medicine 07/17/18 documented as of this encounter
[2024-09-11 20:09] VITALS: BP 134/80; PULSE 90; RESP 18; TEMP 36.3; O2SAT 97
--- NOTE | 2024-09-11 20:58 | PC.NURSE ---
Assumed care of this patient at 1900, initially patient prepped to go home, called daughter, daughter explained she does not feel safe w/ him at home/ unable to take care of him, provider Dr. Griffin made aware, JAMESON regan placed. Maria Dolores BARBA made aware. Patient transferred onto hospital bed.
[2024-09-11] MEDS: Tamsulosin HCL 0.4 MG CAPSULE PO (21:04)
--- NOTE | 2024-09-11 21:09 | MHC.CM.ED ---
Patient with advanced liver CA.Lives alone. Has CCA. Has palliative care nurse at [facility]. Has had no active treatment for disease. 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 Had testing at [facility], Consults at [facility]. Had visit with Dr. Higgins. Was offered IV immunotherapy. Patient and daughter refused. Were then offered hospice. Daughter spoke with [facility] and Hospice today. Unsure of how to proceed. Still has questions about Hospice vs palliative vs witholding care . Cannot provide 24/7 care. Daughter unable to provide level of care that patient needs. Daughter tells CM that she wants CPR and intubation and ventilator if needed. No MOLST on chart. Daughter interested in LTC with possible hospice in facility vs palliative care at facility. CM explained that [facility] would provide personal care, meds and assessments, but if her father needed further medical treatment, he would be sent to the hospital. If she chooses hospice, then he would be kept comfortable with medications for pain, anxiety, nausea and oxygen for comfort and allow nature to proceed. Daughter is unsure. Will come into hospital in the morning to meet with CM and her father to review options. Will need MOLST completed with provider. Will place local referrals. Pt has CCA. Pt is Slovak speaking. CM will follow
[2024-09-12] VITALS (8 sets, daily range): BP systolic 110–138; BP diastolic 63–73; PULSE 55–83; RESP 14–16; TEMP 36.3–36.7; O2SAT 94–96
--- NOTE | 2024-09-12 07:27 | PC.NURSE ---
report taken from previous rn, pt is awake and alert to baseline as indicated from report. pt does not appear to have been incontinent and bedding is dry and clean. pt denies discomfort and appears pleasent and comfortable. but is asking for a cream to apply to his urethral area, area appears mildly excoriated. pt is in nsr on monitor with nonlaboreed resps. pt is awaitng placement by case management. this rn will continue to monitor
--- NOTE | 2024-09-12 08:36 | MHC.CM.ED ---
Addendum entered by Leatha Kramer 09/12/24 10:16: Received notification from Saira of [facility] that she left a voicemail for patient's daughter, Joan, stating she can meet her in the ER at 2pm. Original Note: Patient remains in ER. Per Tracee of [facility], hospice was at patient's home for hospice informational when they recommended patient be sent to the ER. [facility] will reach out to daughter today. Clinical updates sent to facilities still reviewing patient: [facility], [facility], [facility], [facility], [facility], [facility], [facility], [facility] and [facility]. Continue to monitor for d/c needs.
[2024-09-12] MEDS: Lactulose 20 GM/30 ML SOLUTION PO ×3 (10:17→20:41)
[2024-09-12] MEDS: Empagliflozin 10 MG TABLET PO (10:18)
[2024-09-12] MEDS: carvediloL 12.5 MG TABLET PO ×2 (10:18→20:41)
[2024-09-12] MEDS: Cyanocobalamin (Vitamin B-12) 100 MCG TABLET PO (10:18)
[2024-09-12] MEDS: Sennosides 8.6 MG TABLET PO (10:19)
[2024-09-12] MEDS: Clotrimazole 1 % Cream 15 GM TUBE 1 APPL TOPICAL (10:19)
[2024-09-12 11:56] LABS: Glucose, Whole Blood 153 mg/dL (60-115)
--- NOTE | 2024-09-12 12:58 | PC.NURSE ---
Hospice at bedside for family consult
--- NOTE | 2024-09-12 15:13 | MHC.EDTECH ---
pt ambulated to and from bathroom with use of walker and a steady gait
--- NOTE | 2024-09-12 15:18 | PHA.MEDREC ---
Addendum entered by Braden Downs 09/12/24 16:11: reviewed Original Note: Pharmacy Consult ? Medication Reconciliation Pharmacy reviewed med rec done by nursing. Patients daughter at bedside confirmed her dad is no longer taking the Carvedilol 12.5mg tab and states the patients Doctor stopped that 08/16 due to her fathers heart rate and blood pressure being low and his base line changing, I took that off the med rec. She also confirmed her dad is still taking the Ketoconazole Shampoo twice a week but states her dad has a PCP who comes and usually applies that to him and did not know the specific days the PCP does it. She states her dad takes his Tamsulosin 0.4mg tab every day @1600 around supper time. She confirmed her dad last took his medications yesterday morning.
--- NOTE | 2024-09-12 15:35 | PC.NURSE ---
pt medicated per MAR
[2024-09-12 16:50] LABS: Glucose, Whole Blood 167 mg/dL (60-115)
--- NOTE | 2024-09-12 19:01 | MHC.CM.ED ---
Addendum entered by Tonya Quintanilla 09/12/24 19:25: [facility] offering a bed. [facility] is first choice and they are looking at bed availability. CM spoke with daughter/HCP Ellie. She would like to wait until the morning in hopes that [facility] has bed. Both facilities updated in [facility]. [facility] is not interested in [facility]. Per staff, patient ambulates with steady gait to the BR with staff in attendance. Original Note: CM reviewed medical record and spoke with primary nurse. Pt is comfortable. Not requiring pain medication at this time. Pt ambulating to BR and eating snacks and drinking soda. Will review Care [facility] for bed offers.
--- NOTE | 2024-09-12 19:25 | MHC.EDTECH ---
pt ambulated to and from bathroom with a walker and steady gait
[2024-09-12] MEDS: Tamsulosin HCL 0.4 MG CAPSULE PO (20:40)
--- NOTE | 2024-09-12 20:44 | PC.NURSE ---
medicated per sep, notified Heather Ghosh
[2024-09-12 21:13] LABS: Glucose, Whole Blood 183 mg/dL (60-115)
[2024-09-13 05:50] VITALS: BP 116/57; PULSE 61; RESP 16; TEMP 36.6; O2SAT 97
[2024-09-13 07:36] LABS: Glucose, Whole Blood 186 mg/dL (60-115)
[2024-09-13 08:09] VITALS: BP 105/55; PULSE 60; RESP 16; TEMP 36.3; O2SAT 96
--- NOTE | 2024-09-13 08:54 | MHC.CM.ED ---
Patient remains in ER overflow. [facility] is able to offer a bed and is in the process of obtaining insurance auth. [facility] aware. Continue to monitor for d/c needs.
[2024-09-13] MEDS: Lactulose 20 GM/30 ML SOLUTION PO ×3 (09:10→20:42)
[2024-09-13] MEDS: carvediloL 12.5 MG TABLET PO ×2 (09:10→20:42)
[2024-09-13] MEDS: Sennosides 8.6 MG TABLET PO (09:10)
--- NOTE | 2024-09-13 09:12 | PC.NURSE ---
Awaiting missing 09:00 meds. per pharmacy at this time.
[2024-09-13] MEDS: Cyanocobalamin (Vitamin B-12) 100 MCG TABLET PO (10:55)
[2024-09-13] MEDS: Empagliflozin 10 MG TABLET PO (10:55)
[2024-09-13 13:04] LABS: Glucose, Whole Blood 219 mg/dL (60-115)
--- NOTE | 2024-09-13 14:05 | MHC.CM.ED ---
Insurance auth has been obtained by [facility]. [facility] will not be able to admit patient to their service before tomorrow morning. [facility] ABBOTT booked for 9am. [facility] with chart. Patient, daughter Sofia Argueta RN and Winter SAMAYOA aware. Continue to monitor for d/c needs.
--- NOTE | 2024-09-13 15:47 | MHC.EDTECH ---
pt was 1 assist with a bed delacruz and pt had a liquid stool (brown)
[2024-09-13 16:23] LABS: Glucose, Whole Blood 230 mg/dL (60-115)
[2024-09-13] MEDS: Calcium Carbonate 750 MG TAB.CHEW 1500 MG PO (18:32)
--- NOTE | 2024-09-13 20:06 | MHC.EDTECH ---
Assumed careof Pt at 1900
[2024-09-13 20:40] VITALS: BP 98/62; PULSE 63; RESP 16; TEMP 36.1; O2SAT 96
[2024-09-13] MEDS: Tamsulosin HCL 0.4 MG CAPSULE PO (20:42)
--- NOTE | 2024-09-14 01:00 | PC.NURSE ---
Pt awake with daughter at the bedside. Pt is incontinent of urine and stool. Complete bed bath and linen change done. Barrier cream applied to the buttocks area. Skin warm, pink, and intact. Pt denies pain at this time. No apparent distress noted. Daughter expresses interest in pt benefitting from wearing a brief as pt is on lactulose and has been having multiple episodes of stool incontinence. Daughter advised briefs are not available in this department. Will discuss with charge to follow up.
--- NOTE | 2024-09-14 02:00 | PC.NURSE ---
Pts daughter came to this nurse requesting a brief for the pt. Daughter states if briefs are not available she will purchase some and bring to the unit. Charge nurse reports no briefs available in this unit to follow up with the nursing supervisor smoke control. Nursing supervisor smoke control did not agree with the request to have apply a brief but made them available as it is the pts daughter request. Pt agrees with plan.
--- NOTE | 2024-09-14 02:32 | PC.NURSE ---
Pt assisted to the commode where he had a small amount of loose stools. Pt is a 2 assist. Small superficial tear on the scrotum with mild bleeding. Surrounding skin is intact with no signs of infection or swelling. Pt denies pain to the area. Area clened and dried. Brief applied per daughters request. Daughter left.
[2024-09-14 06:00] VITALS: BP 117/57; PULSE 62; RESP 16; TEMP 36.5; O2SAT 95
--- NOTE | 2024-09-14 06:38 | PC.NURSE ---
Pt awaken for morning care. No apparent distress noted. Pt denies pain at this time. Incontinent of stool and urine. Stage 1 pressure ulcer noted on the coccyx area. Perineal care provided. Large optifoam applied to the coccyx area. Pt repositioned to the left side. Pt requests water. Water provided. No aspiration noted. Monitoring is ongoing.
[2024-09-14 07:23] LABS: Glucose, Whole Blood 238 mg/dL (60-115)
--- NOTE | 2024-09-14 07:43 | PC.NURSE ---
called pharmacy for missing medications
--- NOTE | 2024-09-14 09:06 | PC.NURSE ---
ems arrived to discharge patient before this nurse was able to assess, iv removed, pt was awake upon discharge
[2024-09-14 09:10] VITALS: BP 117/57; PULSE 62; RESP 16; TEMP 36.5; O2SAT 95
--- NOTE | 2024-09-14 09:20 | PC.NURSE ---
report given to [facility] care to contreras, he was made aware that the patient was discharged before being medicated
== END 2024-09-14 09:10 | disposition skilled nursing facility (03) ==
PROVIDERS: Emergency Provider Internal Medicine; PCP Pediatrics
DX: C22.0 Liver cell carcinoma (principal); K76.82 Hepatic encephalopathy; I10 Essential (primary) hypertension; E78.5 Hyperlipidemia, unspecified; Z79.82 Long term (current) use of aspirin; Z79.02 Long term (current) use of antithrombotics/antiplatelets; Z79.899 Other long term (current) drug therapy
CPT/HCPCS: 36415; 80053; 82140; 82947; 85025; 97162; 99285